=== PATIENT | male | born 1940 | race Caucasian/White ===

== ENCOUNTER 2017-04-13 15:31 | Inpatient (IN) ==
--- OUTSIDE RECORDS SUMMARY | 2017-04-13 16:06 | External Medical Summary | Referral Summary ---
:1940 Author Organization [facility] Address [address] [place] [address] [place] [phone] Care Team Providers Name Role Phone Juan Francisco Doran Primary Care Physician Encounter VC Date(s): 09/16/14 - 09/16/14 [facility] [address] [place] [phone] [place] Discharge Disposition: 01-Home or Self Care Attending Physician: Don Camejo MD Admitting Physician: Don Camejo MD Vital Signs Most recent to oldest [Reference Range]: 1 Blood Pressure [90-140/60-90 mmHg] 140/90 mmHg (09/16/14 2:31 PM) Problem List Condition Effective Dates Status Health Status Informant Polio(Confirmed) Active Allergic rhinitis(Confirmed) Active Benign essential hypertension Active (disorder)(Confirmed) Chronic kidney disease Active (CKD)(Confirmed) COPD (chronic obstructive pulmonary Active disease)(Confirmed) Hypothyroidism (disorder)(Confirmed) Active ED (erectile dysfunction)(Confirmed) Active Pure hypercholesterolemia Active (disorder)(Confirmed) Allergies, Adverse Reactions, Alerts Substance Reaction Severity Status codeine Active iodine Active Medications Advair Diskus 100 mcg-50 mcg inhalation powder See Instructions, INHALE ONE DOSE BY MOUTH TWICE DAILY, # 60 unknown unit, 5 Refill(s), eRx: [facility], INHALE ONE DOSE BY MOUTH TWICE DAILY Start Date: 03/21/15 Status: Orderedaspirin 81 mg oral tablet 1 tabs, Oral, Daily, # 90 tabs, 0 Refill(s) Start Date: 10/27/13 Status: OrderedC-Time 500 mg oral capsule caps, Oral, BID, 0 Refill(s) Start Date: 10/28/13 Status: Ordereddesoximetasone 0.25% topical cream See Instructions, APPLY TWICE DAILY, # 60 unknown unit, eRx: [facility] 186, APPLY TWICE DAILY Start Date: 05/19/14 Status: Orderedfluticasone 50 mcg/inh nasal spray See Instructions, USE ONE SPRAY(S) IN EACH NOSTRIL TWICE DAILY, # 16 unknown unit, 2 Refill(s), eRx:[facility] 186, USE ONE SPRAY(S) IN EACH NOSTRIL TWICE DAILY Start Date: 02/01/15 Status: Orderedgemfibrozil 600 mg oral tablet See Instructions, TAKE ONE TABLET BY MOUTH EVERY DAY, # 90 tabs, eRx: [place] [id number], TAKE ONE TABLET BY MOUTH EVERY DAY Start Date: 02/01/15 Status: Orderedlevothyroxine 137 mcg (0.137 mg) oral tablet See Instructions, TAKE ONE TABLET BY MOUTH EVERY DAY, # 90 tabs, eRx: [facility] 186, TAKE ONE TABLET BY MOUTH EVERY DAY Start Date: 02/01/15 Status: Orderedlisinopril-hydrochlorothiazide 20 mg-25 mg oral tablet 0.5 tabs, Oral, Daily, # 45 tabs, 1 Refill(s), Pharmacy: [place] [id number] Start Date: 02/17/15 Status: OrderedLORazepam 1 mg oral tablet 0.5-1 tabs, Oral, q8hr, as needed for anxiety, whit wilson [id number], # 90 tabs, 0 Refill(s) Start Date: 02/01/15 Status: OrderedMetoprolol Succinate ER 50 mg oral tablet, extended release See Instructions, TAKE ONE TABLET BY MOUTH EVERY DAY, # 90 tabs, eRx: [place] [id number], TAKE ONE TABLET BY MOUTH EVERY DAY Start Date: 02/01/15 Status: OrderedNasonex 50 mcg/inh nasal spray 1 sprays, Nasal, BID, 0 Refill(s) Start Date: 10/27/13 Status: Orderedpravastatin 40 mg oral tablet See Instructions, TAKE ONE TABLET BY MOUTH EVERY DAY, # 90 tabs, eRx: [facility] [id number], TAKE ONE TABLET BY MOUTH EVERY DAY Start Date: 02/01/15 Status: OrderedRutin oral tablet 1 tabs, Oral, BID, 50 MG, 0 Refill(s) Start Date: 10/28/13 Status: Ordered Results No data available for this section Immunizations Vaccine Date Refusal Reason tetanus/diphth/pertuss (Tdap) adult/adol 10/09/12 pneumococcal 13-valent conjugate vaccine 11/04/14 pneumococcal 13-valent conjugate vaccine 07/29/14 pneumococcal 23-polyvalent vaccine 03/31/12 zoster vaccine live 10/09/12 Procedures Procedure Date Related Diagnosis Body Site Colonoscopy 2006 Social History Social History Type Response Smoking Status Former smoker Assessment and Plan Extracted from: Title: Ambulatory Patient Education Author: Don Camejo MD Date: Family Medicine Glossitis Glossitis is an inflammation of the tongue. Changes in the appearance of the tongue may be a primary tongue disorder. This means the problem is only in the tongue. Glossitis may be a symptom of other disorders. CAUSES Excessive alcohol. Multiple allergies. Infections. Tobacco and nicotine use. Anemia. Mechanical injury. Spicy foods. Vitamin B deficiency. Damage from chemicals or hot food or drink. SYMPTOMS There may be swelling and color changes in the tongue. Sometimes the surface of the tongue may look smooth. This disorder may be painless. But the tongue is usually sore and tender. It can be fiery red if condition is caused by deficiency of B vitamins. It is sometimes pale if there is anemia. Anemia means there are not enough red blood cells. There may be problems with chewing, swallowing and speakin g. In some cases, glossitis may result in severe tongue swelling that blocks the airway. DIAGNOSIS The diagnosis of glossitis is made easily by physical exam and asking for a history. Sometimes blood tests may be done. TREATMENT The goal of treatment is to reduce inflammation. Hospitalization is usually not necessary unless tongue swelling is severe. Good oral hygiene is important. This means good tooth brushing at least twice a day, and flossing daily for treatment and prevention. Corticosteroids such as prednisone may be given to reduce the redness and soreness. Medications may be prescribed if the cause of glossitis is an infection. Other problems such as anemia and nutritional deficiencies are treated. This may be a dietary change or vitamin supplements. Avoid hot or spicy foods, alcohol, and tobacco. This lessens the discomfort. Avoid anything that is irritating to your mouth or tongue. Glossitis usually responds well to treatment if the cause of it is removed or treated. SEEK IMMEDIATE MEDICAL CARE IF: Symptoms of glossitis persist for longer than 10 days. Tongue swelling is severe and breathing, speaking, chewing, or swallowing difficulties are present. You have no relief from medications given. You develop difficulties breathing. Document Released: 02/15/2003 Document Revised: 05/19/2012 Document Reviewed: 04/01/2009 [employer] Patient Information 2014 [place]. No follow up information was provided. Extracted from: Title: Office Visit Note Author: Don Camejo MD Date: 09/16/14 Assessment/Plan Benign essential hypertension (disorder) This issue is stable and appropriate refills, lab, and f/u have been discussed. Cheilitis Trial of diflucan 200mg po daily for ten days. Chronic kidney disease (CKD) This issue is stable and appropriate refills, lab, and f/u have been discussed. COPD (chronic obstructive pulmonary disease) This issue is stable and appropriate refills, lab, and f/u have been discussed. RINSE mouth after every inhaler use. Glossitis Trial of prednisone 20mg po daily for three days only. F/U with PCP. Hypothyroidism (disorder) This issue is stable and appropriate refills, lab, and f/u have been discussed. Stomatitis See above. Presumably this is from yeastfrom not rinsing his mouth after inhaler use. Close f/u if not improving and be seen here or with Dr. RIVERA on his return. Consider Dermconsult if not improving. Orders: fluconazole, 200 mg 1 tabs, Oral, Daily, X 10 days, # 10 tabs, 0 Refill(s), Pharmacy: [facility], 1 tabs Oral Daily,x10 days predniSONE, 20 mg 1 tabs, Oral, Daily, X 3 days, # 3 tabs, 0 Refill(s), Pharmacy: [facility], 1 tabs Oral Daily,x3 days
--- OUTSIDE RECORDS SUMMARY | 2017-04-13 16:06 | External Medical Summary | Referral Summary ---
:1940 Author Organization [facility] [place] [phone] Care Team Providers Name Role Phone Juan Francisco Doran Primary Care Physician Encounter VC Date(s): 10/27/15 - 10/27/15 [facility] [place] [phone] [place] Discharge Diagnosis: Chronic obstructive pulmonary disease Discharge Diagnosis: Chronic kidney disease (CKD) Discharge Diagnosis: Hypothyroidism (disorder) Discharge Diagnosis: Benign essential hypertension Discharge Disposition: 01-Home or Self Care Attending Physician: Juan Francisco Doran MD Admitting Physician: Juan Francisco Doran MD Vital Signs Most recent to oldest [Reference Range]: 1 Temperature Tympanic [36.6-38.1 degC] 36.2 degC *LOW* (10/27/15 10:20 AM) Peripheral Pulse Rate [60-100 bpm] 72 bpm (10/27/15 10:20 AM) Respiratory Rate [14-20 br/min] 16 br/min (10/27/15 10:20 AM) Blood Pressure [90-140/60-90 mmHg] 138/88 mmHg (10/27/15 10:20 AM) Problem List Condition Effective Dates Status Health Status Informant Polio(Confirmed) Active Allergic rhinitis(Confirmed) Active Benign essential hypertension Active (disorder)(Confirmed) Chronic kidney disease Active (CKD)(Confirmed) COPD (chronic obstructive pulmonary Active disease)(Confirmed) Hypothyroidism (disorder)(Confirmed) Active ED (erectile dysfunction)(Confirmed) Active Pure hypercholesterolemia Active (disorder)(Confirmed) Allergies, Adverse Reactions, Alerts Substance Reaction Severity Status codeine Active iodine Active Medications Advair Diskus 250 mcg-50 mcg inhalation powder 1 puffs, Inhalation, BID, # 180 Each, 0 Refill(s), Pharmacy: [facility] Start Date: 07/04/15 Status: OrderedAllegra 24 Hour Allergy oral tablet 180 mg 1 tabs, Oral, Daily, # 30 tabs, 3 Refill(s), Pharmacy: [facility], 1 tabs Oral Daily Start Date: 05/06/15 Status: Orderedaspirin 81 mg oral tablet 1 tabs, Oral, Daily, # 90 tabs, 0 Refill(s) Start Date: 10/27/13 Status: OrderedC-Time 500 mg oral capsule caps, Oral, BID, 0 Refill(s) Start Date: 10/28/13 Status: Ordereddesoximetasone 0.25% topical cream See Instructions, APPLY TWICE DAILY, # 60 unknown unit, eRx: [facility], APPLY TWICE DAILY Start Date: 05/19/14 Status: Orderedfluticasone 50 mcg/inh nasal spray See Instructions, USE TWO SPRAY(S) IN EACH NOSTRIL TWICE DAILY, # 1 Each, 2 Refill(s), Pharmacy: [facility] Start Date: 05/06/15 Status: Orderedgemfibrozil 600 mg oral tablet See Instructions, TAKE ONE TABLET BY MOUTH ONCE DAILY, # 90 tabs, 1 Refill(s), eRx: [facility], TAKE ONE TABLET BY MOUTH ONCE DAILY Start Date: 08/22/15 Status: Orderedlevothyroxine 150 mcg (0.15 mg) oral tablet 150 mcg 1 tabs, Oral, Daily, # 90 tabs, 1 Refill(s), Pharmacy: [facility] 186, 1 tabs Oral Daily Start Date: 07/06/15 Status: Orderedlisinopril-hydrochlorothiazide 20 mg-25 mg oral tablet See Instructions, TAKE ONE-HALF TABLET BY MOUTH ONCE DAILY, # 45 tabs, 1 Refill( s), eRx: [facility] 186, TAKE ONE-HALF TABLET BY MOUTH ONCE DAILY Start Date: 08/22/15 Status: OrderedLORazepam 1 mg oral tablet 0.5-1 tabs, Oral, q8hr, as needed for anxiety, whit wilson [id number], # 90 tabs, 0 Refill(s) Start Date: 08/22/15 Status: OrderedMetoprolol Succinate ER 50 mg oral tablet, extended release See Instructions, TAKE ONE TABLET BY MOUTH ONCE DAILY, # 90 tabs, 1 Refill(s), eRx: [facility] 186, TAKE ONE TABLET BY MOUTH ONCE DAILY Start Date: 08/22/15 Status: OrderedNasonex 50 mcg/inh nasal spray 1 sprays, Nasal, BID, 0 Refill(s) Start Date: 10/27/13 Status: Orderedpravastatin 40 mg oral tablet See Instructions, TAKE ONE TABLET BY MOUTH ONCE DAILY, # 90 tabs, 1 Refill(s), eRx: [facility] 186, TAKE ONE TABLET BY MOUTH ONCE DAILY Start Date: 08/22/15 Status: OrderedRutin oral tablet 1 tabs, Oral, BID, 50 MG, 0 Refill(s) Start Date: 10/28/13 Status: OrderedViagra 100 mg oral tablet 100 mg 1 tabs, Oral, Daily, 1 hour before sexual activity, # 10 tabs, 3 Refill(s ), Pharmacy: [facility] 186, 1 tabs Oral Daily,Instr:1 hour before sexual activity Start Date: 10/27/15 Status: Ordered Results Hematology Most recent to oldest [Reference Range]: 1 WBC [4.8-10.8 10*3/uL] 9.6 10*3/uL (10/27/15 11:15 AM) RBC [4.60-6.20] 5.60 (10/27/15 11:15 AM) Hgb [14.0-18.0 gm/dL] 16.8 gm/dL (10/27/15 11:15 AM) Hct [42.0-52.0 %] 48.9 % (10/27/15 11:15 AM) MCV [82.0-99.0 fL] 87.3 fL (10/27/15 11:15 AM) MCH [27.0-32.0 pg] 30.0 pg (10/27/15 11:15 AM) MCHC [32.0-36.0 gm/dL] 34.4 gm/dL (10/27/15 11:15 AM) RDW [11.5-14.5 %] 13.4 % (10/27/15 11:15 AM) Platelet [150-400 10*3/uL] 207 10*3/uL (10/27/15 11:15 AM) MPV [8.8-14.8 fL] 9.9 fL (10/27/15 11:15 AM) Immature Granulocytes [0.0-1.0 %] 0.2 % (10/27/1515 AM) Neutrophils [51-75 %] 60 % (10/27/15:15 AM) Lymphocytes [20-46 %] 23 % (10/27/15:15 AM) Monocytes [4-11 %] 13 % *HI* (10/27/1515 AM) Eosinophils [0-4 %] 4 % (10/27/15:15 AM) Basophils [0-2 %] 0 % (10/27/15 11:15 AM) Neutro Absolute [1.90-7.00 10*3] 5.79 10*3 (10/27/15:15 AM) Lymph Absolute [0.80-3.30 10*3] 2.18 10*3 (10/27/15:15 AM) [place] Absolute [0.30-1.00 10*3] 1.20 10*3 *HI* (10/27/15:15 AM) Eos Absolute [0.00-0.50 10*3] 0.39 10*3 (10/27/15 11:15 AM) Baso Absolute [0.00-0.20 10*3] 0.03 10*3 (10/27/15 11:15 AM) Chemistry Most recent to oldest [Reference Range]: 1 Sodium Lvl [135-144 mEq/L] 142 mEq/L (10/27/15:15 AM) Potassium Lvl [3.5-5.2 mEq/L] 3.9 mEq/L (10/27/15:15 AM) Chloride [99-111 mEq/L] 101 mEq/L (10/27/15 11:15 AM) CO2 [23-31 mEq/L] 30 mEq/L (10/27/15:15 AM) AGAP [3-20] 11 (10/27/15 11:15 AM) BUN [8-26 mg/dL] 11 mg/dL (10/27/15 11:15 AM) Glucose Lvl [70-99 mg/dL] 77 mg/dL (10/27/15 11:15 AM) Creatinine Lvl [0.72-1.25 mg/dL] 1.13 mg/dL (10/27/15 11:15 AM) eGFR [>60 mL/min] >60 mL/min 1 (10/27/15 11:15 AM) Calcium Lvl [8.9-10.5 mg/dL] 9.9 mg/dL (10/27/15 11:15 AM) 1Result Comment: Multiply eGFR results by 1.21 for race. Immunizations Vaccine Date Refusal Reason tetanus/diphth/pertuss (Tdap) adult/adol 10/09/12 pneumococcal 13-valent conjugate vaccine 11/04/14 pneumococcal 13-valent conjugate vaccine 07/29/14 pneumococcal 23-polyvalent vaccine 03/31/12 zoster vaccine live 10/09/12 Procedures Procedure Date Related Diagnosis Body Site Colonoscopy 2007 Eye surgery Shoulder repair1 1both in the past Social History Social History Type Response Smoking Status Former smoker Assessment and Plan Extracted from: Title: Office Visit Note Author: Juan Francisco Doran MD Date: 10/27/15 Assessment/Plan 1.Benign essential hypertension, Essential (primary) hypertension Blood pressure appears to be adequately controlled no changes in current treatment recommended. Ordered: Office Visit Level 4 Est 53639 2.Chronic kidney disease (CKD), Chronic kidney disease, stage 3 (moderate) Chronic but stable. Laboratory studies ordered no changes in current treatment. Ordered: Office Visit Level 4 Est 96367 3.Chronic obstructive pulmonary disease, Chronic obstructive pulmonary disease, unspecified Chronic stable no change in current treatment recommended. Ordered: Office Visit Level 4 Est 82296 4.Hypothyroidism (disorder), Hypothyroidism, unspecified Chronic stable on current dosage no changes recommended. Ordered: Office Visit Level 4 Est 85411 Carpal tunnel syndrome He appears to be stable forsurgical intervention. EKG is normal and laboratory studies are pending. Ordered: Basic Metabolic Panel CBC w/ Differential Orders: sildenafil, 100 mg 1 tabs, Oral, Daily, 1 hour before sexual activity , # 10 tabs, 3 Refill(s), Pharmacy: [facility], 1 tabs Oral Daily, Instr:1 hour before sexual activity
--- OUTSIDE RECORDS SUMMARY | 2017-04-13 16:06 | External Medical Summary | Referral Summary ---
:1940 Author Organization [facility] [place] [phone] Care Team Providers Name Role Phone Juan Francsico Doran Primary Care Physician Encounter VC Date(s): 07/29/14 - 07/29/14 [facility] [place] [phone] [place] Discharge Diagnosis: Benign essential hypertension Discharge Diagnosis: Hypothyroidism Discharge Diagnosis: Allergic rhinitis Discharge Diagnosis: Pure hypercholesterolemia Discharge Diagnosis: COPD (chronic obstructive pulmonary disease) Discharge Disposition: 01-Home or Self Care Attending Physician: Juan Francisco Doran MD Admitting Physician: Juan Francisco Doran MD Vital Signs Most recent to oldest [Reference Range]: 1 Temperature Tympanic [36.6-38.1 degC] 36.4 degC *LOW* (07/29/14 8:02 AM) Peripheral Pulse Rate [60-100 bpm] 76 bpm (07/29/14 8:02 AM) Respiratory Rate [14-20 br/min] 16 br/min (07/29/14 8:02 AM) Blood Pressure [90-140/60-90 mmHg] 126/72 mmHg (07/29/14 8:02 AM) Problem List Condition Effective Dates Status [...] MOUTH TWICE DAILY, # 60 unknown unit, 4 Refill(s), eRx: [facility], INHALE ONE DOSE BY MOUTH TWICE DAILY Start Date: 09/06/14 Status: Orderedaspirin 81 mg oral tablet 1 tabs, Oral, Daily, # 90 tabs, 0 Refill(s) Start Date: 10/27/13 Status: OrderedC-Time 500 mg oral capsule caps, Oral, BID, 0 Refill(s) Start Date: 10/28/13 Status: Ordereddesoximetasone 0.25% topical cream See Instructions, APPLY TWICE DAILY, # 60 unknown unit, [facility]Rx: [facility], APPLY TWICE DAILY Start Date: 05/19/14 Status: Orderedfluticasone 50 mcg/inh nasal spray See Instructions, USE ONE SPRAY(S) IN EACH NOSTRIL TWICE DAILY, # 16 unknown unit, 2 Refill(s), [facility], USE ONE SPRAY(S) IN EACH NOSTRIL TWICE DAILY Start Date: 02/01/15 Status: Orderedgemfibrozil 600 mg oral tablet See Instructions, TAKE ONE TABLET BY MOUTH EVERY DAY, # 90 tabs, [facility]Rx: [facility], TAKE ONE TABLET BY MOUTH EVERY DAY Start Date: 02/01/15 Status: Orderedlevothyroxine 137 mcg (0.137 mg) oral tablet See Instructions, TAKE ONE TABLET BY MOUTH EVERY DAY, # 90 tabs, eRx: [facility] 186, TAKE ONE TABLET BY MOUTH EVERY DAY Start Date: 02/01/15 Status: OrderedLORazepam 1 mg oral tablet 0.5-1 tabs, Oral, q8hr, as needed for anxiety, whit wilson [id number], # 90 tabs, 0 Refill(s) Start Date: 02/01/15 Status: OrderedMetoprolol Succinate ER 50 mg oral tablet, extended release See Instructions, TAKE ONE TABLET BY MOUTH EVERY DAY, # 90 tabs, eRx: [facility] 186, TAKE ONE TABLET BY MOUTH EVERY DAY Start Date: 02/01/15 Status: OrderedNasonex 50 mcg/inh nasal spray 1 sprays, Nasal, BID, 0 Refill(s) Start Date: 10/27/13 Status: Orderedpravastatin 40 mg oral tablet See Instructions, TAKE ONE TABLET BY MOUTH EVERY DAY, # 90 tabs, [facility]Rx: [facility], TAKE ONE TABLET BY MOUTH EVERY [...] Extracted from: Title: Ambulatory Patient Education Author: Juan Francisco Doran MD Date: 07/29 Family Medicine Chronic Obstructive Pulmonary Disease Chronic obstructive pulmonary disease (COPD) is a common lung problem. In COPD , the flow of air from the lungs is limited. The way your lungs work will probably never return to normal, but there are thi ngs you can do to improve you lungs and make yourself feel better. HOME CARE Take all medicines as told by your doctor. Only take [id number] or prescription medicines as told by your doctor. Avoid medicines or cough syrups that dry up your airway (such as antihistamines) and do not allow you to get rid of thick spit. You do not need to avoid them if told differently by your doctor. If you smoke, stop. Smoking makes the problem worse. Avoid being around things that make your breathing worse (like smoke, chemicals, and fumes). Use oxygen therapy and therapy to help improve your lungs (pulmonary rehabilitation ) if told by your doctor. If you need home oxygen therapy, ask your doctor if you should buy a tool to measure your oxygen level (oximeter ). Avoid people who have a sickness you can catch (contagious ). Avoid going outside when it is very hot, cold, or humid. Eat healthy foods. Eat smaller meals more often. Rest before meals. Stay active, but remember to also rest. Make sure to get all the shots (vaccines ) your doctor recommends. Ask your doctor if you need a pneumonia shot. Learn and use tips on how to relax. Learn and use tips on how to control your breathing as told by your doctor. Try: Breathing in (inhaling ) through your nose for 1 second. Then, pucker your lips and breath out (exhale ) through your lips for 2 seconds. Putting one hand on your belly (abdomen ). Breathe in slowly through your nose for 1 second. Your hand on your belly should move out. Pucker your lips and breathe out slowly through your lips. You r hand on your belly should move in as you breathe out. Learn and use controlled coughing to clear thick spit from your lungs. 1. Lean your head a little forward. 2. Breathe in deeply. 3. Try to hold your breath for 3 seconds. 4. Keep your mouth slightly open while coughing 2 times. 5. Spit any thick spit out into a tissue. 6. Rest and do the steps again 1 or 2 times as needed. GET HELP IF: You cough up more thick spit than usual. There is a change in the color or thickness of the spit. It is harder to breathe than usual. Your breathing is faster than usual. GET HELP RIGHT AWAY IF: You have shortness of breath while resting. You have shortness of breath that stops you from: Being able to talk. Doing normal activities. You chest hurts for longer than 5 minutes. Your skin color is more blue than usual. Your pulse oximeter shows that you have low oxygen for longer than 5 minutes. MAKE SURE YOU: Understand these instructions. Will watch your condition. Will get help right away if you are not doing well or get worse. Document Released: 08/13/2008 Document Revised: 12/16/2013 Document Reviewed: 10/22/2013 [facility] Patient Information 2014 [facility]. No follow up information was provided. Extracted from: Title: Admission H & P Author: Juan Francisco Doran MD Date: 07/29/14 Assessment/Plan Allergic rhinitis Overall stable. Continue antihistamines as needed. He also has Flonase to use as needed. Benign essential hypertension Continue current treatment plan. Report card reviewed and provided. Follow-up in 3 months with fasting lab. COPD (chronic obstructive pulmonary disease) Overall stable no change in current treatment plan recommended. Prevnar given today. Ordered: Hypothyroidism TSH is normal in April. No change in current dosage recommended. Pure hypercholesterolemia Overall stable no change in current treatment plan. Fasting lab prior to next appointment.
--- OUTSIDE RECORDS SUMMARY | 2017-04-13 16:06 | External Medical Summary | Referral Summary ---
:1940 Author Organization [facility] [place] [address] Care Team Providers Name Role Phone Juan Francisco Doran Primary Care Physician Encounter VC Date(s): 02/07/16 - 02/07/16 [facility] [place] [phone] [place] Discharge Diagnosis: Viral URI Discharge Diagnosis: Chronic kidney disease (CKD) Discharge Diagnosis: Pure hypercholesterolemia Discharge Diagnosis: Benign essential hypertension Discharge Diagnosis: Hypothyroidism (disorder) Discharge Diagnosis: Chronic obstructive pulmonary disease Discharge Diagnosis: Acute nasopharyngitis [common cold] Discharge Disposition: 01-Home or Self Care Attending Physician: Juan Francisco Doran MD Admitting Physician: Juan Francisco Doran MD Vital Signs Most recent to oldest [Reference Range]: 1 Temperature Tympanic [36.6-38.1 degC] 36.3 degC *LOW* (02/07/16 8:05 AM) Peripheral Pulse Rate [60-100 bpm] 80 bpm (02/07/16 8:05 AM) Respiratory Rate [14-20 br/min] 16 br/min (02/07/16 8:05 AM) Blood Pressure [90-140/60-90 mmHg] 130/70 mmHg (02/07/16 8:05 AM) Problem List Condition Effective Dates Status Health Status Informant Polio(Confirmed) Active Allergic rhinitis(Confirmed) Active Benign essential hypertension Active (disorder)(Confirmed) Chronic kidney disease Active (CKD)(Confirmed) COPD (chronic obstructive pulmonary Active disease)(Confirmed) Hypothyroidism (disorder)(Confirmed) Active ED (erectile dysfunction)(Confirmed) Active Pure hypercholesterolemia Active (disorder)(Confirmed) Allergies, Adverse Reactions, Alerts Substance Reaction Severity Status codeine Active iodine Active Medications Advair Diskus 250 mcg-50 mcg inhalation powder See Instructions, INHALE ONE DOSE BY MOUTH TWICE DAILY, # 180 unknown unit, 1 Refill(s), eRx: [facility], INHALE ONE DOSE BY MOUTH TWICE DAILY Start Date: 11/21/15 Status: Orderedalbuterol CFC free 90 mcg/inh inhalation aerosol 2 puffs, Inhalation, QID, as needed for wheezing, # 18 g, 2 Refill(s), Pharmacy : [facility] 186 Start Date: 02/07/16 Status: OrderedAllegra 24 Hour Allergy oral tablet 180 mg 1 tabs, Oral, Daily, # 30 tabs, 3 Refill(s), Pharmacy: [facility] 186, 1 tabs Oral Daily Start Date: 05/06/15 Status: Orderedaspirin 81 mg oral tablet 1 tabs, Oral, Daily, # 90 tabs, 0 Refill(s) Start Date: 10/27/13 Status: OrderedC-Time 500 mg oral capsule caps, Oral, BID, 0 Refill(s) Start Date: 10/28/13 Status: Ordereddesoximetasone 0.25% topical cream See Instructions, APPLY TWICE DAILY, # 60 unknown unit, eRx: [place] [id number], APPLY TWICE DAILY Start Date: 05/19/14 Status: Orderedfluticasone 50 mcg/inh nasal spray See Instructions, USE TWO SPRAY(S) IN EACH NOSTRIL TWICE DAILY, # 1 Each, 2 Refill(s), Pharmacy: [place] [id number] Start Date: 05/06/15 Status: Orderedgemfibrozil 600 mg oral tablet See Instructions, TAKE ONE TABLET BY MOUTH ONCE DAILY, # 90 tabs, 1 Refill(s), eRx: [place] [id number], TAKE ONE TABLET BY MOUTH ONCE DAILY Start Date: 08/22/15 Status: Orderedlevothyroxine 150 mcg (0.15 mg) oral tablet 150 mcg 1 tabs, Oral, Daily, # 90 tabs, 1 Refill(s), Pharmacy: [facility] 186, 1 tabs Oral Daily Start Date: 07/06/15 Status: Orderedlisinopril-hydrochlorothiazide 20 mg-25 mg oral tablet See Instructions, TAKE ONE-HALF TABLET BY MOUTH ONCE DAILY, # 45 tabs, 1 Refill( s), eRx: [facility] 186, TAKE ONE-HALF TABLET BY MOUTH ONCE DAILY Start Date: 08/22/15 Status: OrderedLORazepam 1 mg oral tablet 0.5-1 tabs, Oral, q8hr, as needed for anxiety, whit wilson [id number], # 90 tabs, 0 Refill(s) Start Date: 01/06/16 Status: OrderedMetoprolol Succinate ER 50 mg oral tablet, extended release See Instructions, TAKE ONE TABLET BY MOUTH ONCE DAILY, # 90 tabs, 1 Refill(s), eRx: [facility] 186, TAKE ONE TABLET BY MOUTH ONCE DAILY Start Date: 08/22/15 Status: OrderedNasonex 50 mcg/inh nasal spray 1 sprays, Nasal, BID, 0 Refill(s) Start Date: 10/27/13 Status: Orderedpravastatin 40 mg oral tablet See Instructions, TAKE ONE TABLET BY MOUTH ONCE DAILY, # 90 tabs, 1 Refill(s), eRx: [facility], TAKE ONE TABLET BY MOUTH ONCE DAILY Start Date: 08/22/15 Status: OrderedRutin oral tablet 1 tabs, Oral, BID, 50 MG, 0 Refill(s) Start Date: 10/28/13 Status: OrderedViagra 100 mg oral tablet 100 mg 1 tabs, Oral, Daily, 1 hour before sexual activity, # 10 tabs, 3 Refill(s ), Pharmacy: [facility], 1 tabs Oral Daily,Instr:1 hour before sexual activity Start Date: 10/27/15 Status: Ordered Results No data available for this section Immunizations Vaccine Date Refusal Reason tetanus/diphth/pertuss (Tdap) adult/adol 10/09/12 pneumococcal 13-valent conjugate vaccine 02/07/16 pneumococcal 13-valent conjugate vaccine 11/04/14 pneumococcal 13-valent conjugate vaccine 07/29/14 pneumococcal 23-polyvalent vaccine 03/31/12 zoster vaccine live 10/09/12 Procedures Procedure Date Related Diagnosis Body Site Colonoscopy 2007 Eye surgery Shoulder repair1 1both in the past Social History Social History Type Response Smoking Status Former smoker Assessment and Plan Extracted from: Title: Office Visit Note Author: Juan Francisco Doran MD Date: 02/07/16 Assessment/Plan 1.Viral URI, It appears she has an upper respiratory viral infection. This seems to be improvingspecific treatmentat this time. If he has ongoing symptoms or further problems he'll let us now. Acute nasopharyngitis [common cold] Ordered: Office Visit Level 4 Est 64162 2.Chronic obstructive pulmonary disease I've written a prescription for an albuterolHFA inhaler to be used as a rescue inhaler on a when necessary basis. Continue Advair. If wheezing her congestion worsens he'll let us know. Ordered: Office Visit Level 4 Est 74848 3.Benign essential hypertension Blood pressure appears to be reasonably well-controlled no change in current treatment is recommended. Recheck in 3 months. Fasting lab at that time. Report card reviewed and provided today. Ordered: Office Visit Level 4 Est 46737 4.Chronic kidney disease (CKD) Chronic relatively stable no change in current treatment. Ordered: Office Visit Level 4 Est 30010 5.Hypothyroidism (disorder) Previous laboratory reviewed TSH is normal no change in current treatment. Ordered: Office Visit Level 4 Est 38070 6.Pure hypercholesterolemia Chronic stable recheck in 3 months with fasting lab. Continue current treatment plan. Ordered: Office Visit Level 4 Est 28435 Flu shot offered and refused today. We did recommend and give Prevnar today.
--- OUTSIDE RECORDS SUMMARY | 2017-04-13 16:06 | External Medical Summary | Referral Summary ---
:1940 Author Organization [facility] [place] [address] Care Team Providers Name Role Phone Juan Francisco Doran Primary Care Physician Encounter VC Date(s): 11/04/14 - 11/04/14 [facility] [place] [phone] [place] Discharge Diagnosis: Hypothyroidism Discharge Diagnosis: Benign essential hypertension Discharge Diagnosis: COPD (chronic obstructive pulmonary disease) Discharge Diagnosis: Pure hypercholesterolemia Discharge Diagnosis: Chronic kidney disease (CKD) Discharge Disposition: 01-Home or Self Care Attending Physician: Juan Francisco Doran MD Admitting Physician: Juan Francisco Doran MD Vital Signs Most recent to oldest [Reference Range]: 1 Temperature Tympanic [36.6-38.1 degC] 36.0 degC *LOW* (11/04/14 7:57 AM) Peripheral Pulse Rate [60-100 bpm] 72 bpm (11/04/14 7:57 AM) Respiratory Rate [14-20 br/min] 22 br/min *HI* (11/04/14 7:57 AM) Blood Pressure [90-140/60-90 mmHg] 140/90 mmHg (11/04/14 7:57 AM) Problem List Condition Effective Dates Status [...] # 60 unknown unit, 5 Refill(s), eRx: [facility] 186, INHALE ONE DOSE BY MOUTH TWICE DAILY Start Date: 03/21/15 Status: OrderedAllegra 24 Hour Allergy oral tablet 180 mg 1 tabs, Oral, Daily, # 30 tabs, 3 Refill(s), Pharmacy: [facility] 186, 1 tabs Oral Daily Start Date: 05/06/15 Status: Orderedaspirin 81 mg oral tablet 1 tabs, Oral, Daily, # 90 tabs, 0 Refill(s) Start Date: 10/27/13 Status: OrderedC-Time 500 mg oral capsule caps, Oral, BID, 0 Refill(s) Start Date: 10/28/13 Status: Ordereddesoximetasone 0.25% topical cream See Instructions, APPLY TWICE DAILY, # 60 unknown unit, eRx: [facility] 186, APPLY TWICE DAILY Start Date: 05/19/14 Status: Orderedfluticasone 50 mcg/inh nasal spray See Instructions, USE TWO SPRAY(S) IN EACH NOSTRIL TWICE DAILY, # 1 Each, 2 Refill(s), Pharmacy: [place] [id number] Start Date: 05/06/15 Status: Orderedgemfibrozil 600 mg oral tablet See Instructions, TAKE ONE TABLET BY MOUTH EVERY DAY, # 90 tabs, eRx: [place] [id number], TAKE ONE TABLET BY MOUTH EVERY DAY Start Date: 02/01/15 Status: Orderedlevothyroxine 150 mcg (0.15 mg) oral tablet 150 mcg 1 tabs, Oral, Daily, recheck lab in 6-8 weeks, # 60 tabs, 0 Refill(s), Pharmacy: [facility] 186, 1 tabs Oral Daily,Instr:recheck lab in 6-8 weeks Start Date: 05/10/15 Status: Orderedlisinopril-hydrochlorothiazide 20 mg-25 mg oral tablet 0.5 tabs, Oral, Daily, # 45 tabs, 1 Refill(s), Pharmacy: [place] [id number] Start Date: 02/17/15 Status: OrderedLORazepam 1 mg oral tablet 0.5-1 tabs, Oral, q8hr, as needed for anxiety, whit wilson [id number], # 90 tabs, 0 Refill(s) Start Date: 02/01/15 Status: OrderedMetoprolol Succinate ER 50 mg oral tablet, extended release See Instructions, TAKE ONE TABLET BY MOUTH EVERY DAY, # 90 tabs, eRx: [facility] 186, TAKE ONE TABLET BY MOUTH EVERY DAY Start Date: 02/01/15 Status: OrderedNasonex 50 mcg/inh nasal spray 1 sprays, Nasal, BID, 0 Refill(s) Start Date: 10/27/13 Status: Orderedpravastatin 40 mg oral tablet See Instructions, TAKE ONE TABLET BY MOUTH EVERY DAY, # 90 tabs, eRx: [facility] 186, TAKE ONE TABLET BY MOUTH EVERY DAY Start Date: 02/01/15 Status: OrderedRutin oral tablet 1 tabs, Oral, BID, 50 MG, 0 Refill(s) Start Date: 10/28/13 Status: Ordered Results Chemistry Most recent to oldest [Reference Range]: 1 Sodium Lvl [135-144 mEq/L] 142 mEq/L (11/04/14 8:38 AM) Potassium Lvl [3.5-5.2 mEq/L] 4.5 mEq/L (11/04/14 8:38 AM) Chloride [99-111 mEq/L] 103 mEq/L (11/04/14 8:38 AM) CO2 [23-31 mEq/L] 31 mEq/L (11/04/14 8:38 AM) AGAP [3-20] 8 (11/04/14 8:38 AM) BUN [8-26 mg/dL] 13 mg/dL (11/04/14 8:38 AM) Glucose Lvl [70-99 mg/dL] 126 mg/dL *HI* (11/04/14 8:38 AM) Creatinine Lvl [0.72-1.25 mg/dL] 1.32 mg/dL *HI* (11/04/14 8:38 AM) eGFR [>60 mL/min] 53 mL/min 1 *ABN* (11/04/14 8:38 AM) Calcium Lvl [8.9-10.5 mg/dL] 9.9 mg/dL (11/04/14 8:38 AM) Albumin Lvl [3.4-4.8 gm/dL] 4.2 gm/dL (11/04/14 8:38 AM) Total Protein [6.2-8.1 gm/dL] 7.4 gm/dL (8/27/15 8:38 AM) Globulin [1.8-4.0 gm/dL] 3.2 gm/dL (11/04/14 8:38 AM) ALT [0-55 U/L] 41 U/L (11/04/14 8:38 AM) AST [5-34 U/L] 39 U/L *HI* (11/04/14 8:38 AM) Alk Phos [40-150 U/L] 71 U/L (11/04/14 8:38 AM) Bili Total [0.2-1.2 mg/dL] 0.4 mg/dL (11/04/14 8:38 AM) Chol [0-199 mg/dL] 156 mg/dL (11/04/14 8:38 AM) Trig [0-149 mg/dL] 176 mg/dL *HI* (11/04/14 8:38 AM) HDL [40-84 mg/dL] 26 mg/dL *LOW* (11/04/14 8:38 AM) LDL [0-130 mg/dL] 95 mg/dL (11/04/14 8:38 AM) VLDL Cholesterol [0-28 mg/dL] 35 mg/dL *HI* (11/04/14 8:38 AM) Cardiac Risk [0.0-5.7] 6.0 *HI* (11/04/14 8:38 AM) 1Result Comment: Multiply eGFR results by 1.21 for race. Immunizations Vaccine Date Refusal Reason tetanus/diphth/pertuss (Tdap) adult/adol 10/09/12 pneumococcal 13-valent conjugate vaccine 11/04/14 pneumococcal 13-valent conjugate vaccine 07/29/14 pneumococcal 23-polyvalent vaccine 03/31/12 zoster vaccine live 10/09/12 Procedures Procedure Date Related Diagnosis Body Site Colonoscopy 2007 Social History Social History Type Response Smoking Status Former smoker Assessment and Plan Extracted from: Title: Ambulatory Patient Education Author: Juan Francisco Doran MD Date: 11/04 Family Medicine Hypertension Hypertension is another name for high blood pressure. High blood pressure forces your heart to work harder to pump blood. A blood pressure reading has two numbers, which includes a higher number over a lower number (example: 110/72 ). HOME CARE Have your blood pressure rechecked by your doctor. Only take medicine as told by your doctor. Follow the directions carefully. The medicine does not work as well if you skip doses. Skipping doses also puts you at risk for problems. Do not smoke. Monitor your blood pressure at home as told by your doctor. GET HELP IF: You think you are having a reaction to the medicine you are taking. You have repeat headaches or feel dizzy. You have puffiness (swelling) in your ankles. You have trouble with your vision. GET HELP RIGHT AWAY IF: You get a very bad headache and are confused. You feel weak, numb, or faint. You get chest or belly (abdominal) pain. You throw up (vomit). You cannot breathe very well. MAKE SURE YOU: Understand these instructions. Will watch your condition. Will get help right away if you are not doing well or get worse. Document Released: 08/13/2008 Document Revised: 03/02/2014 Document Reviewed: 12/18/2013 [email or web address] [place] Patient Information 2015 [employer]. This information is not intended to replace advice given to you by your health care provider. Make sure you discuss any questions you have with your health care provider. No follow up information was provided. Extracted from: Title: Office Visit Note Author: Juan Francisco Doran MD Date: 11/04/14 Assessment/Plan Benign essential hypertension The pressures mildly elevated today it's been normal at home. No change in current treatment is recommended. Report card reviewed and provided. Follow-up in 3 months. Ordered: Office Visit Level 4 Est 34561 Chronic kidney disease (CKD) Emphasized importance of good blood pressure control. CMP is ordered today. Ordered: Comprehensive Metabolic Panel Office Visit Level 4 Est 20738 COPD (chronic obstructive pulmonary disease) Chronic stable continue Advair. Prevnar given today. Recheck in 3 months. Ordered: pneumococcal 13-valent conjugate vaccine, 0.5 mL, IntraMuscular, Once, First Dose: 11/04/14 9:00:00 CDT, Stop Date: 11/04/14 9:00:00 CDT, Form: Injection Office Visit Level 4 Est 11750 Hypothyroidism Chronic stable most recent TSH reviewed and normal. Ordered: Office Visit Level 4 Est 07784 Pure hypercholesterolemia Laboratory studies ordered for today for further evaluation. Ordered: Lipid Panel Office Visit Level 4 Est 66906
--- OUTSIDE RECORDS SUMMARY | 2017-04-13 16:06 | External Medical Summary | Referral Summary ---
:1940 Author Organization [facility] [place] [address] Care Team Providers Name Role Phone Juan Francisco Doran Primary Care Physician Encounter VC Date(s): 02/01/15 - 02/01/15 [facility] [place] [phone] [place] Discharge Diagnosis: Benign essential hypertension Discharge Diagnosis: Chronic kidney disease (CKD) Discharge Diagnosis: COPD (chronic obstructive pulmonary disease) Discharge Diagnosis: Hypothyroidism (disorder) Discharge Diagnosis: Pure hypercholesterolemia Discharge Disposition: 01-Home or Self Care Attending Physician: Juan Francisco Doran MD Admitting Physician: Juan Francisco Doran MD Vital Signs Most recent to oldest [Reference Range]: 1 Temperature Tympanic [36.6-38.1 degC] 36.6 degC (02/01/15 8:02 AM) Peripheral Pulse Rate [60-100 bpm] 84 bpm (02/01/15 8:02 AM) Respiratory Rate [14-20 br/min] 18 br/min (02/01/15 8:02 AM) Blood Pressure [90-140/60-90 mmHg] 134/70 mmHg (02/01/15 8:02 AM) Problem List Condition Effective Dates [...] # 60 unknown unit, 4 Refill(s), eRx: [facility] 186, INHALE ONE DOSE BY MOUTH TWICE DAILY Start Date: 09/06/14 Status: Orderedaspirin 81 mg oral tablet 1 tabs, Oral, Daily, # 90 tabs, 0 Refill(s) Start Date: 10/27/13 Status: OrderedC-Time 500 mg oral capsule caps, Oral, BID, 0 Refill(s) Start Date: 10/28/13 Status: Ordereddesoximetasone 0.25% topical cream See Instructions, APPLY TWICE DAILY, # 60 unknown unit, eRx: [facility] 186, APPLY TWICE DAILY Start Date: 05/19/14 Status: Orderedfluticasone 50 mcg/inh nasal spray See Instructions, USE ONE SPRAY(S) IN EACH NOSTRIL TWICE DAILY, # 16 unknown unit, 2 Refill(s), eRx:[facility] 186, USE ONE SPRAY(S) IN EACH NOSTRIL TWICE DAILY Start Date: 02/01/15 Status: Orderedgemfibrozil 600 mg oral tablet See Instructions, TAKE ONE TABLET BY MOUTH EVERY DAY, # 90 tabs, eRx: [place] [id number], TAKE ONE TABLET BY MOUTH EVERY DAY Start Date: 02/01/15 Status: Orderedlevothyroxine 137 mcg (0.137 mg) oral tablet See Instructions, TAKE ONE TABLET BY MOUTH EVERY DAY, # 90 tabs, eRx: [place] [id number], TAKE ONE TABLET BY MOUTH EVERY DAY Start Date: 02/01/15 Status: OrderedLORazepam 1 mg oral tablet 0.5-1 tabs, Oral, q8hr, as needed for anxiety, whit wilson [id number], # 90 tabs, 0 Refill(s) Start Date: 02/01/15 Status: OrderedMetoprolol Succinate ER 50 mg oral tablet, extended release See Instructions, TAKE ONE TABLET BY MOUTH EVERY DAY, # 90 tabs, eRx: [facility] 186, TAKE ONE TABLET BY MOUTH EVERY DAY Start Date: 02/01/15 Status: OrderedNasonex 50 mcg/inh nasal spray 1 sprays, Nasal, BID, 0 Refill(s) Start Date: 10/27/13 Status: Orderedpravastatin 40 mg oral tablet See Instructions, TAKE ONE TABLET BY MOUTH EVERY DAY, # 90 tabs, eRx: [facility] 186, TAKE ONE TABLET BY MOUTH [...] Note Author: Juan Francisco Doran MD Date: 02/01/15 Assessment/Plan Benign essential hypertension Blood pressure is adequately controlled. Medications and treatments reviewed no changes recommended. Report card reviewed and provided. Follow-up in 3 months. Ordered: Office Visit Level 4 Est 45237 Chronic kidney disease (CKD) Chronic stable. The pressures controlled. Laboratory studies in 3 months. Ordered: Office Visit Level 4 Est 16316 COPD (chronic obstructive pulmonary disease) Overall stable no change in current treatment recommended. Recheck in 3 months. Ordered: Office Visit Level 4 Est 53509 Hypothyroidism (disorder) Continue current dosage of levothyroxine. TSH will be due in 3 months. Ordered: Office Visit Level 4 Est 63978 Pure hypercholesterolemia
--- OUTSIDE RECORDS SUMMARY | 2017-04-13 16:06 | External Medical Summary | Referral Summary ---
:1940 Author Organization [facility] [place] [address] Care Team Providers Name Role Phone Juan Francisco Doran Primary Care Physician Encounter VC Date(s): 07/04/15 - 07/04/15 [facility] [place] [phone] [place] Discharge Diagnosis: Chronic obstructive pulmonary disease Discharge Diagnosis: Oral candidiasis Discharge Diagnosis: Allergic rhinitis due to pollen Discharge Diagnosis: Acute sinusitis Discharge Diagnosis: Rhinitis medicamentosa Discharge Disposition: 01-Home or Self Care Attending Physician: Katarzyna Reeder APRN Admitting Physician: Katarzyna Reeder APRN Vital Signs Most recent to oldest [Reference Range]: 1 Temperature Tympanic [36.6-38.1 degC] 36.2 degC *LOW* (07/04/15 1:37 PM) Peripheral Pulse Rate [60-100 bpm] 72 bpm (07/04/15 1:37 PM) Respiratory Rate [14-20 br/min] 16 br/min (07/04/15 1:37 PM) Blood Pressure [90-140/60-90 mmHg] 138/68 mmHg (07/04/15 1:37 PM) Problem List Condition Effective Dates Status [...] BID, # 180 Each, 0 Refill(s), Pharmacy: [facility] 186 Start Date: 07/04/15 Status: OrderedAllegra 24 Hour Allergy oral tablet 180 mg 1 tabs, Oral, Daily, # 30 tabs, 3 Refill(s), Pharmacy: [facility] 186, 1 tabs Oral Daily Start Date: 05/06/15 Status: Orderedaspirin 81 mg oral tablet 1 tabs, Oral, Daily, # 90 tabs, 0 Refill(s) Start Date: 10/27/13 Status: OrderedC-Time 500 mg oral capsule caps, Oral, BID, 0 Refill(s) Start Date: 10/28/13 Status: Ordereddesoximetasone 0.25% topical cream See Instructions, APPLY TWICE DAILY, # 60 unknown unit, eRx: [facility] 186, APPLY TWICE DAILY Start Date: 05/19/14 Status: OrderedDiflucan 100 mg oral tablet 100 mg 1 tabs, Oral, Daily, X 14 days, # 14 tabs, 0 Refill(s), Pharmacy: [facility], 1 tabs Oral Daily,x14 days Start Date: 07/04/15 Stop Date: 07/18/15 Status: Orderedfluticasone 50 mcg/inh nasal spray See Instructions, USE TWO SPRAY(S) IN EACH NOSTRIL TWICE DAILY, # 1 Each, 2 Refill(s), Pharmacy: [place] [id number] Start Date: 05/06/15 Status: Orderedgemfibrozil 600 mg oral tablet See Instructions, TAKE ONE TABLET BY MOUTH ONCE DAILY, # 90 tabs, eRx: [facility] 186, TAKE ONE TABLET BY MOUTH ONCE DAILY Start Date: 05/30/15 Status: Orderedlevothyroxine 150 mcg (0.15 mg) oral tablet 150 mcg 1 tabs, Oral, Daily, recheck lab in 6-8 weeks, # 60 tabs, 0 Refill(s), Pharmacy: [facility] 186, 1 tabs Oral Daily,Instr:recheck lab in 6-8 weeks Start Date: 05/10/15 Status: Orderedlisinopril-hydrochlorothiazide 20 mg-25 mg oral tablet 0.5 tabs, Oral, Daily, # 45 tabs, 1 Refill(s), Pharmacy: [place] [id number] Start Date: 02/17/15 Status: OrderedLORazepam 1 mg oral tablet 0.5-1 tabs, Oral, q8hr, as needed for anxiety, whit wilson [id number], # 90 tabs, 0 Refill(s) Start Date: 05/30/15 Status: OrderedMetoprolol Succinate ER 50 mg oral tablet, extended release See Instructions, TAKE ONE TABLET BY MOUTH EVERY DAY, # 90 tabs, eRx: [facility] 186, TAKE ONE TABLET BY MOUTH EVERY DAY Start Date: 05/30/15 Status: OrderedNasonex 50 mcg/inh nasal spray 1 sprays, Nasal, BID, 0 Refill(s) Start Date: 10/27/13 Status: Orderedpravastatin 40 mg oral tablet See Instructions, TAKE ONE TABLET BY MOUTH ONCE DAILY, # 90 tabs, eRx: [facility] 186, TAKE ONE TABLET BY MOUTH ONCE DAILY Start Date: 05/30/15 Status: OrderedpredniSONE 10 mg oral tablet See Instructions, 4 tabs dly 3 days, 3 tabs dly 3 days, 2 tabs dly 3 days, one tab dly 3 days then stop. with food, # 30 tabs, 0 Refill(s), 4 tabs dly 3 days, 3 tabs dly 3 days, 2 tabs dly 3 days, one tab dly 3 days then stop. with food Start Date: 07/04/15 Stop Date: 08/17/15 Status: OrderedRutin oral tablet 1 tabs, Oral, BID, 50 MG, 0 Refill(s) Start Date: 10/28/13 Status: OrderedZithromax Z-Anish 250 mg oral tablet 1 packets, Oral, Daily, as directed on package labeling, X 5 days, # 6 tabs, 0 Refill(s), Pharmacy: [facility] 186, 1 packets Oral Daily,x5 days,Instr: as directed on package labeling Start Date: 07/04/15 Stop Date: 07/09/15 Status: Ordered Results Chemistry Most recent to oldest [Reference Range]: 1 TSH with Reflex Free T4 [0.35-4.94] 1.80 (07/04/15 2:15 PM) Immunizations Vaccine Date Refusal Reason tetanus/diphth/pertuss (Tdap) adult/adol 10/09/12 pneumococcal 13-valent conjugate vaccine 11/04/14 pneumococcal 13-valent conjugate vaccine 07/29/14 pneumococcal 23-polyvalent vaccine 03/31/12 zoster vaccine live 10/09/12 Procedures Procedure Date Related Diagnosis Body Site Colonoscopy 2006 Social History Social History Type Response Smoking Status Former smoker Assessment and Plan Extracted from: Title: Office Visit Note-sinus Author: Katarzyna eReder APRN Date: 07/04/15 Assessment/Plan 1.Acute sinusitis Patient counseled regarding diagnosis, natural history, pathophysiology, typical treatment, and expected results. Questions and concerns answered. There is no overlying erythema to suggest an associated cellulitis or abscess formation. Take antibiotics till complete. Saline or Jovany med nasal rinses twice a day may be helpful. Tylenol per package instructions for comfort. Notify office if symptoms fail to improve. Ordered: Office Visit Level 4 Est 84373 2.Oral candidiasis Diflucan 100 mg dailyfor 14 days. Discussed the importance of removing his dentures and rinsing his mouth well after each use of Advair. Ordered: Office Visit Level 4 Est 48986 Allergic rhinitis due to pollen Continue using Priya. Nasal rinses may be beneficial. Continue fluticasone. Ordered: Office Visit Level 4 Est 11642 Chronic obstructive pulmonary disease Mild exacerbation. Prednisone taper. Side effects discussed. Take with food. Increase Advair 250/50 twice a day. Office visit if symptoms fail to improve. Ordered: Office Visit Level 4 Est 58117 Hypothyroidism (disorder) Recheck TSH today. Rhinitis medicamentosa Discussed with patient what happens with long-term aspirin use and trying to discontinue it. Recommend he try to taper off of it over the next 2 weeks. Ordered: Office Visit Level 4 Est 26161 Orders: azithromycin, 1 packets, Oral, Daily, as directed on package labeling , X 5 days, # 6 tabs, 0 Refill(s), [facility] 186, 1 packets Oral Daily,x5 days,Instr:as directed on package labeling fluconazole, 100 mg 1 tabs, Oral, Daily, X 14 days, # 14 tabs, 0 Refill(s), [facility], 1 tabs Oral Daily,x14 days fluticasone-salmeterol, 1 puffs, Inhalation, BID, # 180 Each, 0 Refill(s), Pharmacy: [facility] 186 predniSONE, See Instructions, 4 tabs dly 3 days, 3 tabs dly 3 days, 2 tabs dly 3 days, one tab dly 3 days then stop. with food, # 30 tabs, 0 Refill(s), 4 tabs dly 3 days, 3 tabs dly 3 days, 2 tabs dly 3 days, one tab dly 3 days then stop. with food
--- OUTSIDE RECORDS SUMMARY | 2017-04-13 16:06 | External Medical Summary | Referral Summary ---
:1940 Author Organization [facility] [place] [address] Care Team Providers Name Role Phone Juan Francisco Doran Primary Care Physician Encounter VC Date(s): 08/04/15 - 08/04/15 [facility] [place] [phone] [place] Discharge Diagnosis: Benign essential hypertension Discharge Diagnosis: Hypothyroidism (disorder) Discharge Diagnosis: Chronic kidney disease (CKD) Discharge Diagnosis: Chronic obstructive pulmonary disease Discharge Diagnosis: Pure hypercholesterolemia Discharge Disposition: 01-Home or Self Care Attending Physician: Juan Francisco Doran MD Admitting Physician: Juan Francisco Doran MD Vital Signs Most recent to oldest [Reference Range]: 1 Temperature Tympanic [36.6-38.1 degC] 36.6 degC (08/04/15 7:57 AM) Peripheral Pulse Rate [60-100 bpm] 80 bpm (08/04/15 7:57 AM) Respiratory Rate [14-20 br/min] 16 br/min (08/04/15 7:57 AM) Blood Pressure [90-140/60-90 mmHg] 120/80 mmHg (08/04/15 7:57 AM) Problem List Condition Effective Dates [...] BID, # 180 Each, 0 Refill(s), Pharmacy: [facility] 186 Start Date: 07/04/15 Status: OrderedAllegra 24 Hour Allergy oral tablet 180 mg 1 tabs, Oral, Daily, # 30 tabs, 3 Refill(s), Pharmacy: [facility] 186, 1 tabs Oral Daily Start Date: 05/06/15 Status: Orderedaspirin 81 mg oral tablet 1 tabs, Oral, Daily, # 90 tabs, 0 Refill(s) Start Date: 10/27/13 Status: OrderedC-Time 500 mg oral capsule caps, Oral, BID, 0 Refill(s) Start Date: 10/28/13 Status: Ordereddesoximetasone 0.25% topical cream See Instructions, APPLY TWICE DAILY, # 60 unknown unit, eRx: [facility] 186, APPLY TWICE DAILY Start Date: 05/19/14 Status: Orderedfluticasone 50 mcg/inh nasal spray See Instructions, USE TWO SPRAY(S) IN EACH NOSTRIL TWICE DAILY, # 1 Each, 2 Refill(s), Pharmacy: [place] [id number] Start Date: 05/06/15 Status: Orderedgemfibrozil 600 mg oral tablet See Instructions, TAKE ONE TABLET BY MOUTH ONCE DAILY, # 90 tabs, eRx: [place] [id number], TAKE ONE TABLET BY MOUTH ONCE DAILY Start Date: 05/30/15 Status: Orderedlevothyroxine 150 mcg (0.15 mg) oral tablet 150 mcg 1 tabs, Oral, Daily, # 90 tabs, 1 Refill(s), Pharmacy: [place] [id number], 1 tabs Oral Daily Start Date: 07/06/15 Status: Orderedlisinopril-hydrochlorothiazide 20 mg-25 mg oral tablet 0.5 tabs, Oral, Daily, # 45 tabs, 1 Refill(s), Pharmacy: [place] [id number] Start Date: 02/17/15 Status: OrderedLORazepam 1 mg oral tablet 0.5-1 tabs, Oral, q8hr, as needed for anxiety, whit wilson [id number], # 90 tabs, 0 Refill(s) Start Date: 05/30/15 Status: OrderedMetoprolol Succinate ER 50 mg oral tablet, extended release See Instructions, TAKE ONE TABLET BY MOUTH EVERY DAY, # 90 tabs, eRx: [facility] 186, TAKE ONE TABLET BY MOUTH EVERY DAY Start Date: 05/30/15 Status: OrderedNasonex 50 mcg/inh nasal spray 1 sprays, Nasal, BID, 0 Refill(s) Start Date: 10/27/13 Status: Orderedpravastatin 40 mg oral tablet See Instructions, TAKE ONE TABLET BY MOUTH ONCE DAILY, # 90 tabs, eRx: [facility] 186, TAKE ONE TABLET BY MOUTH ONCE DAILY Start Date: 05/30/15 Status: OrderedRutin oral tablet 1 tabs, Oral, [...] Note Author: Juan Francisco Doran MD Date: 08/04/15 Assessment/Plan 1.Benign essential hypertension Blood pressures well-controlled no changescontinue current treatment plan. Report card reviewed and provided. Follow-up in3 months. Ordered: Office Visit Level 4 Est 40140 2.Chronic kidney disease (CKD) Chronic stable no change in treatment plan recheck in 3 months with fasting lab. Ordered: Office Visit Level 4 Est 19734 3.Chronic obstructive pulmonary disease He is doing better and increased dose of Advair continue that without changerecheck in 3 months. Ordered: Office Visit Level 4 Est 98025 4.Hypothyroidism (disorder) Recent TSH was in the normal range. Change in dosage recommended. Ordered: Office Visit Level 4 Est 77849 5.Pure hypercholesterolemia Chronic relatively stable. Recheck in 3 months with fasting lab. Continue current treatment plan. Ordered: Office Visit Level 4 Est 97944
--- OUTSIDE RECORDS SUMMARY | 2017-04-13 16:06 | External Medical Summary | Referral Summary ---
:1940 Author Organization [facility] [place] [phone] Care Team Providers Name Role Phone Juan Francisco Doran Primary Care Physician Encounter VC Date(s): 07/29/14 - 07/29/14 [facility] [place] [phone] [place] Discharge Diagnosis: [...] rhinitis(Confirmed) Active Benign essential hypertension Active (disorder)(Confirmed) COPD (chronic obstructive pulmonary Active disease)(Confirmed) Chronic kidney disease Active (CKD)(Confirmed) Hypothyroidism (disorder)(Confirmed) Active ED (erectile dysfunction)(Confirmed) Active Pure hypercholesterolemia Active (disorder)(Confirmed) Allergies, Adverse Reactions, Alerts Substance Reaction Severity Status codeine Active iodine Active Medications Advair Diskus 100 mcg-50 mcg inhalation powder See Instructions, INHALE ONE DOSE BY MOUTH TWICE DAILY, # 60 unknown unit, 4 Refill(s), eRx: [facility] 186, INHALE ONE DOSE BY MOUTH TWICE DAILY Start Date: 09/06/14 Status: Orderedaspirin 81 mg oral tablet 1 tabs, Oral, Daily, # 90 tabs, 0 Refill(s) Start Date: 10/27/13 Status: OrderedC-Time 500 mg oral capsule caps, Oral, BID, 0 Refill(s) Start Date: 10/28/13 Status: Ordereddesoximetasone 0.25% topical cream See Instructions, APPLY TWICE DAILY, # 60 unknown unit, [facility]: [facility], APPLY TWICE DAILY Start Date: 05/19/14 Status: Orderedfluticasone 50 mcg/inh nasal spray See Instructions, USE ONE SPRAY(S) IN EACH NOSTRIL TWICE DAILY, # 16 unknown unit, 4 Refill(s), [facility] 186, USE ONE SPRAY(S) IN EACH NOSTRIL TWICE DAILY Start Date: 09/06/14 Status: Orderedgemfibrozil 600 mg oral tablet See Instructions, TAKE ONE TABLET BY MOUTH EVERY DAY, # 90 tabs, [facility]Rx: [facility] 186, TAKE ONE TABLET BY MOUTH EVERY DAY Start Date: 12/06/14 Status: Orderedlevothyroxine 137 mcg (0.137 mg) oral tablet See Instructions, TAKE ONE TABLET BY MOUTH EVERY DAY, # 90 tabs, eRx: [facility] 186, TAKE ONE TABLET BY MOUTH EVERY DAY Start Date: 12/06/14 Status: OrderedLORazepam 1 mg oral tablet 0.5-1 tabs, Oral, q8hr, as needed for anxiety, whit wilson [id number], # 90 tabs, 0 Refill(s) Start Date: 12/06/14 Status: OrderedMetoprolol Succinate ER 50 mg oral tablet, extended release See Instructions, TAKE ONE TABLET BY MOUTH EVERY DAY, # 90 tabs, eRx: [facility] 186, TAKE ONE TABLET BY MOUTH EVERY DAY Start Date: 12/06/14 Status: OrderedNasonex 50 mcg/inh nasal spray 1 sprays, Nasal, BID, 0 Refill(s) Start Date: 10/27/13 Status: Orderedpravastatin 40 mg oral tablet See Instructions, TAKE ONE TABLET BY MOUTH EVERY DAY, # 90 tabs, [facility]Rx: [facility] 186, TAKE ONE TABLET BY MOUTH EVERY DAY Start Date: 12/06/14 Status: OrderedRutin oral tablet 1 tabs, Oral, [...] as told by your doctor. Only take [id number] or prescription medicines as told by your [...] 08/13/2008 Document Revised: 12/16/2013 Document Reviewed: 10/22/2013 [facility]. No follow up information was provided. Extracted [...]
--- OUTSIDE RECORDS SUMMARY | 2017-04-13 16:07 | External Medical Summary | Referral Summary ---
:1940 Author Organization [facility] [place] [address] Care Team Providers Name Role Phone Juan Francisco Doran Primary Care Physician Encounter VC Date(s): 07/29/14 - 07/29/14 [facility] [place] [phone] [place] Discharge [...] # 60 unknown unit, 4 Refill(s), eRx: [facility] 186, INHALE ONE DOSE BY MOUTH TWICE DAILY Start Date: 09/06/14 Status: Orderedaspirin 81 mg oral tablet 1 tabs, Oral, Daily, # 90 tabs, 0 Refill(s) Start Date: 10/27/13 Status: OrderedC-Time 500 mg oral capsule caps, Oral, BID, 0 Refill(s) Start Date: 10/28/13 Status: Ordereddesoximetasone 0.25% topical cream See Instructions, APPLY TWICE DAILY, # 60 unknown unit, eRx: [facility] 186, APPLY TWICE DAILY Start Date: 05/19/14 Status: Orderedfluticasone 50 mcg/inh nasal spray See Instructions, USE ONE SPRAY(S) IN EACH NOSTRIL TWICE DAILY, # 16 unknown unit, 4 Refill(s), eRx:[facility] 186, USE ONE SPRAY(S) IN EACH NOSTRIL TWICE DAILY Start Date: 09/06/14 Status: Orderedgemfibrozil 600 mg oral tablet See Instructions, TAKE ONE TABLET BY MOUTH EVERY DAY, # 90 tabs, eRx: [facility] 186, TAKE ONE TABLET BY MOUTH EVERY DAY Start Date: 12/06/14 Status: Orderedlevothyroxine 137 mcg (0.137 mg) oral tablet See Instructions, TAKE ONE TABLET BY MOUTH EVERY DAY, # 90 tabs, eRx: [facility] 186, TAKE ONE TABLET BY MOUTH EVERY DAY Start Date: 12/06/14 Status: OrderedLORazepam 1 mg oral tablet 0.5-1 tabs, Oral, q8hr, as needed for anxiety, whit wilson [id number], # 90 tabs, 0 Refill(s) Start Date: 12/06/14 Status: OrderedMetoprolol Succinate ER 50 mg oral tablet, extended release See Instructions, TAKE ONE TABLET BY MOUTH EVERY DAY, # 90 tabs, eRx: [facility] 186, TAKE ONE TABLET BY MOUTH EVERY DAY Start Date: 12/06/14 Status: OrderedNasonex 50 mcg/inh nasal spray 1 sprays, Nasal, BID, 0 Refill(s) Start Date: 10/27/13 Status: Orderedpravastatin 40 mg oral tablet See Instructions, TAKE ONE TABLET BY MOUTH EVERY DAY, # 90 tabs, eRx: [facility] 186, TAKE ONE TABLET BY MOUTH EVERY [...] as told by your doctor. Only take yzeh-ebz-drccmzm or prescription medicines as told by your [...] 08/13/2008 Document Revised: 12/16/2013 Document Reviewed: 10/22/2013 [facility]. No follow up information was provided. Extracted [...]
--- OUTSIDE RECORDS SUMMARY | 2017-04-13 16:07 | External Medical Summary | Referral Summary ---
:1940 Author Organization [facility] [place] [address] Care Team Providers Name Role Phone Juan Francisco Doran Primary Care Physician Encounter VC Date(s): 03/26/16 - 03/26/16 [facility] [place] [phone] [place] Discharge Diagnosis: Chronic obstructive pulmonary disease Discharge Diagnosis: Acute bronchitis Discharge Disposition: 01-Home or Self Care Attending Physician: Juan Francisco Doran MD Admitting Physician: Juan Francisco Doran MD Vital Signs Most recent to oldest [Reference Range]: 1 Temperature Tympanic [36.6-38.1 degC] 36.6 degC (03/26/16 11:01 AM) Peripheral Pulse Rate [60-100 bpm] 68 bpm (03/26/16 11:01 AM) Respiratory Rate [14-20 br/min] 16 br/min (03/26/16 11:01 AM) Blood Pressure [90-140/60-90 mmHg] 144/84 mmHg *HI* (03/26/16 11:01 AM) Problem List Condition Effective Dates Status [...] # 180 unknown unit, 1 Refill(s), eRx: [facility] 186, INHALE ONE DOSE BY MOUTH TWICE DAILY Start Date: 11/21/15 Status: Orderedalbuterol CFC free 90 mcg/inh inhalation aerosol 2 puffs, Inhalation, QID, as needed for wheezing, # 18 g, 2 Refill(s), Pharmacy : [facility] 186 Start Date: 02/07/16 Status: OrderedAllegra 24 Hour Allergy oral tablet 180 mg 1 tabs, Oral, Daily, # 30 tabs, 3 Refill(s), Pharmacy: [facility] 186, 1 tabs Oral Daily Start Date: 05/06/15 Status: Orderedaspirin 81 mg oral tablet 1 tabs, Oral, Daily, # 90 tabs, 0 Refill(s) Start Date: 10/27/13 Status: OrderedC-Time 500 mg oral capsule caps, Oral, BID, 0 Refill(s) Start Date: 10/28/13 Status: Ordereddesoximetasone 0.25% topical cream See Instructions, APPLY TWICE DAILY, # 60 unknown unit, eRx: [facility] 186, APPLY TWICE DAILY Start Date: 05/19/14 Status: Orderedgemfibrozil 600 mg oral tablet See Instructions, TAKE ONE TABLET BY MOUTH ONCE DAILY, # 90 tabs, eRx: [place] [address] Start Date: 03/09/16 Status: OrderedLevaquin 500 mg oral tablet 500 mg 1 tabs, Oral, q24hr, X 10 days, # 10 tabs, 0 Refill(s), Pharmacy: [facility] 186, 1 tabs Oral q24hr,x10 days Start Date: 03/26/16 Stop Date: 04/05/16 Status: Orderedlevothyroxine 150 mcg (0.15 mg) oral tablet 150 mcg 1 tabs, Oral, Daily, # 90 tabs, 1 Refill(s), Pharmacy: [facility] 186, 1 tabs Oral Daily Start Date: 07/06/15 Status: Orderedlisinopril-hydrochlorothiazide 20 mg-25 mg oral tablet See Instructions, TAKE ONE-HALF TABLET BY MOUTH ONCE DAILY, # 45 tabs, 3 Refill( s), eRx: [facility] 186, TAKE ONE-HALF TABLET BY MOUTH ONCE DAILY Start Date: 02/17/16 Status: OrderedLORazepam 1 mg oral tablet 0.5-1 tabs, Oral, q8hr, as needed for anxiety, whit wilson [id number], # 90 tabs, 0 Refill(s) Start Date: 01/06/16 Status: OrderedMetoprolol Succinate ER 50 mg oral tablet, extended release See Instructions, TAKE ONE TABLET BY MOUTH ONCE DAILY, # 90 tabs, eRx: [facility] 186 Start Date: 03/09/16 Status: OrderedNeilMed Sinus Rinse Kit Nasal, BID, as needed for sinus congestion, 0 Refill(s) Start Date: 03/26/16 Status: Orderedpravastatin 40 mg oral tablet See Instructions, TAKE ONE TABLET BY MOUTH ONCE DAILY, # 90 tabs, eRx: [facility] 186 Start Date: 03/09/16 Status: OrderedRutin oral tablet 1 tabs, Oral, BID, 50 MG, 0 Refill(s) Start Date: 10/28/13 Status: OrderedTessalon Perles 100 mg oral capsule 100 mg 1 caps, Oral, TID, # 30 caps, 0 Refill(s), Pharmacy: [facility] 186, 1 caps Oral TID Start Date: 03/26/16 Status: OrderedViagra 100 mg oral tablet 100 mg 1 tabs, Oral, Daily, 1 hour before sexual activity, # 10 tabs, 3 Refill(s ), Pharmacy: [facility] 186, 1 tabs Oral Daily,Instr:1 hour before sexual activity Start Date: 10/27/15 Status: Ordered Results No data available for this section Immunizations Given and Recorded Vaccine Date Status Refusal Reason tetanus/diphth/pertuss (Tdap) adult/adol 10/09/12 Recorded pneumococcal 13-valent conjugate vaccine 02/07/16 Given pneumococcal 13-valent conjugate vaccine 11/04/14 Given pneumococcal 13-valent conjugate vaccine 07/29/14 Given pneumococcal 13-valent conjugate vaccine1 03/31/12 Given pneumococcal 23-polyvalent vaccine 03/31/12 Recorded zoster vaccine live 10/09/12 Given 1Result Comment: [07/28/2014 Uncharted] error Procedures Procedure Date Related Diagnosis Body Site Colonoscopy 2007 Eye surgery Shoulder repair1 1both in the past Social History Social History Type Response Smoking Status Former smoker Assessment and Plan Extracted from: Title: Office Visit Note Author: Juan Francisco Doran MD Date: 03/26/16 Assessment/Plan 1.Acute bronchitis I've recommendedLevaquin 500 mg daily for 10 days. Tessalon Perles as needed for cough. His symptoms progress or worsen or don't seem to improve he' ll let us know. Ordered: Office Visit Level 3 Est 06781 2.Chronic obstructive pulmonary disease Overall this appears to be stable. No steroids needed at this time. If he becomes more wheezy or having increasing shortness of breath he'll let us know. Ordered: Office Visit Level 3 Est 83578
--- OUTSIDE RECORDS SUMMARY | 2017-04-13 16:07 | External Medical Summary | Referral Summary ---
:1940 Author Organization [facility] [place] [address] Care Team Providers Name Role Phone Juan Francisco Doran Primary Care Physician Encounter VC Date(s): 07/29/14 - 07/29/14 [facility] [place] [phone] [place] Discharge Diagnosis: [...] # 60 unknown unit, 4 Refill(s), eRx: [facility], INHALE ONE DOSE BY MOUTH TWICE DAILY Start Date: 09/06/14 Status: Orderedaspirin 81 mg oral tablet 1 tabs, Oral, Daily, # 90 tabs, 0 Refill(s) Start Date: 10/27/13 Status: OrderedC-Time 500 mg oral capsule caps, Oral, BID, 0 Refill(s) Start Date: 10/28/13 Status: Ordereddesoximetasone 0.25% topical cream See Instructions, APPLY TWICE DAILY, # 60 unknown unit, eRx: [facility] 186, APPLY TWICE DAILY Start Date: 05/19/14 Status: Orderedfluticasone 50 mcg/inh nasal spray See Instructions, USE ONE SPRAY(S) IN EACH NOSTRIL TWICE DAILY, # 16 unknown unit, 4 Refill(s), eRx:[facility] [employer] [facility] [facility] 186, USE ONE SPRAY(S) IN EACH NOSTRIL TWICE DAILY Start Date: 09/06/14 Status: Orderedgemfibrozil 600 mg oral tablet See Instructions, TAKE ONE TABLET BY MOUTH EVERY DAY, # 90 tabs, eRx: [facility] [employer] [facility] 186, TAKE ONE TABLET BY MOUTH EVERY DAY Start Date: 12/06/14 Status: Orderedlevothyroxine 137 mcg (0.137 mg) oral tablet See Instructions, TAKE ONE TABLET BY MOUTH EVERY DAY, # 90 tabs, eRx: [facility] 186, TAKE ONE TABLET BY MOUTH EVERY DAY Start Date: 12/06/14 Status: OrderedLORazepam 1 mg oral tablet 0.5-1 tabs, Oral, q8hr, as needed for anxiety, whit wilson [id number], # 90 tabs, 0 Refill(s) Start Date: 12/06/14 Status: OrderedMetoprolol Succinate ER 50 mg oral tablet, extended release See Instructions, TAKE ONE TABLET BY MOUTH EVERY DAY, # 90 tabs, eRx: [facility] 186, TAKE ONE TABLET BY MOUTH EVERY DAY Start Date: 12/06/14 Status: OrderedNasonex 50 mcg/inh nasal spray 1 sprays, Nasal, BID, 0 Refill(s) Start Date: 10/27/13 Status: Orderedpravastatin 40 mg oral tablet See Instructions, TAKE ONE TABLET BY MOUTH EVERY DAY, # 90 tabs, eRx: [facility] [facility] 186, TAKE ONE TABLET BY [...] as told by your doctor. Only take adhe-pac-podlawo or prescription medicines as told by your [...] 08/13/2008 Document Revised: 12/16/2013 Document Reviewed: 10/22/2013 [facility]. No follow up information was provided. [...]
--- OUTSIDE RECORDS SUMMARY | 2017-04-13 16:07 | External Medical Summary | Referral Summary ---
:1940 Author Organization [facility] [place] [address] Care Team Providers Name Role Phone Juan Francisco Doran Primary Care Physician Encounter VC Date(s): 07/29/14 - 07/29/14 [facility] [place] [phone] [place] Discharge Diagnosis: [...] # 60 unknown unit, 4 Refill(s), eRx: [facility] 186, INHALE ONE DOSE BY MOUTH TWICE DAILY Start Date: 09/06/14 Status: Orderedaspirin 81 mg oral tablet 1 tabs, Oral, Daily, # 90 tabs, 0 Refill(s) Start Date: 10/27/13 Status: OrderedC-Time 500 mg oral capsule caps, Oral, BID, 0 Refill(s) Start Date: 10/28/13 Status: Ordereddesoximetasone 0.25% topical cream See Instructions, APPLY TWICE DAILY, # 60 unknown unit, [facility]Rx: [facility], APPLY TWICE DAILY Start Date: 05/19/14 Status: Orderedfluticasone 50 mcg/inh nasal spray See Instructions, USE ONE SPRAY(S) IN EACH NOSTRIL TWICE DAILY, # 16 unknown unit, 4 Refill(s), [facility], USE ONE SPRAY(S) IN EACH NOSTRIL TWICE DAILY Start Date: 09/06/14 Status: Orderedgemfibrozil 600 mg oral tablet See Instructions, TAKE ONE TABLET BY MOUTH EVERY DAY, # 90 tabs, eRx: [facility] 186, TAKE ONE TABLET BY MOUTH EVERY DAY Start Date: 12/06/14 Status: Orderedlevothyroxine 137 mcg (0.137 mg) oral tablet See Instructions, TAKE ONE TABLET BY MOUTH EVERY DAY, # 90 tabs, eRx: [facility] 186, TAKE ONE TABLET BY MOUTH EVERY DAY Start Date: 12/06/14 Status: OrderedLORazepam 1 mg oral tablet 0.5-1 tabs, Oral, q8hr, as needed for anxiety, whit wilson [id number], # 90 tabs, 0 Refill(s) Start Date: 12/06/14 Status: OrderedMetoprolol Succinate ER 50 mg oral tablet, extended release See Instructions, TAKE ONE TABLET BY MOUTH EVERY DAY, # 90 tabs, eRx: [facility] 186, TAKE ONE TABLET BY MOUTH EVERY DAY Start Date: 12/06/14 Status: OrderedNasonex 50 mcg/inh nasal spray 1 sprays, Nasal, BID, 0 Refill(s) Start Date: 10/27/13 Status: Orderedpravastatin 40 mg oral tablet See Instructions, TAKE ONE TABLET BY MOUTH EVERY DAY, # 90 tabs, eRx: [facility] 186, TAKE ONE TABLET BY MOUTH [...] as told by your doctor. Only take dcsz-njc-egkqlor or prescription medicines as told by your [...] 08/13/2008 Document Revised: 12/16/2013 Document Reviewed: 10/22/2013 [facility]. No follow up information was provided. Extracted [...]
--- OUTSIDE RECORDS SUMMARY | 2017-04-13 16:07 | External Medical Summary | Referral Summary ---
:1940 Author Organization [facility] [place] [address] Care Team Providers Name Role Phone Juan Francisco Doran Primary Care Physician Encounter VC Date(s): 05/06/15 - 05/06/15 [facility] [place] [phone] [place] Discharge Diagnosis: Benign essential hypertension Discharge Diagnosis: Pure hypercholesterolemia Discharge Diagnosis: Hypothyroidism (disorder) Discharge Diagnosis: COPD (chronic obstructive pulmonary disease) Discharge Diagnosis: Allergic rhinitis Discharge Disposition: 01-Home or Self Care Attending Physician: Juan Francisco Doran MD Admitting Physician: Juan Francisco Doran MD Vital Signs Most recent to oldest [Reference Range]: 1 Temperature Tympanic [36.6-38.1 degC] 36.3 degC *LOW* (05/06/15 7:50 AM) Peripheral Pulse Rate [60-100 bpm] 68 bpm (05/06/15 7:50 AM) Blood Pressure [90-140/60-90 mmHg] 116/70 mmHg (05/06/15 7:50 AM) Problem List Condition Effective Dates Status [...] # 60 unknown unit, 5 Refill(s), eRx: [facility] 186, INHALE ONE DOSE BY MOUTH TWICE DAILY Start Date: 03/21/15 Status: OrderedAllegra 24 Hour Allergy oral tablet 180 mg 1 tabs, Oral, Daily, # 30 tabs, 3 Refill(s), Pharmacy: [place] [address], 1 tabs Oral Daily Start Date: 05/06/15 Status: Orderedaspirin 81 mg oral tablet 1 tabs, Oral, Daily, # 90 tabs, 0 Refill(s) Start Date: 10/27/13 Status: OrderedC-Time 500 mg oral capsule caps, Oral, BID, 0 Refill(s) Start Date: 10/28/13 Status: Ordereddesoximetasone 0.25% topical cream See Instructions, APPLY TWICE DAILY, # 60 unknown unit, eRx: [place] [address], APPLY TWICE DAILY Start Date: 05/19/14 Status: Orderedfluticasone 50 mcg/inh nasal spray See Instructions, USE TWO SPRAY(S) IN EACH NOSTRIL TWICE DAILY, # 1 Each, 2 Refill(s), Pharmacy: [place] [address] Start Date: 05/06/15 Status: Orderedgemfibrozil 600 mg oral tablet See Instructions, TAKE ONE TABLET BY MOUTH EVERY DAY, # 90 tabs, eRx: [place] [address], TAKE ONE TABLET BY MOUTH EVERY DAY Start Date: 02/01/15 Status: Orderedlevothyroxine 137 mcg (0.137 mg) oral tablet See Instructions, TAKE ONE TABLET BY MOUTH EVERY DAY, # 90 tabs, eRx: [place] [address], TAKE ONE TABLET BY MOUTH EVERY DAY Start Date: 02/01/15 Status: Orderedlisinopril-hydrochlorothiazide 20 mg-25 mg oral tablet 0.5 tabs, Oral, Daily, # 45 tabs, 1 Refill(s), Pharmacy: [place] [address] Start Date: 02/17/15 Status: OrderedLORazepam 1 mg oral tablet 0.5-1 tabs, Oral, q8hr, as needed for anxiety, whit wilson [phone], # 90 tabs, 0 Refill(s) Start Date: 02/01/15 Status: OrderedMetoprolol Succinate ER 50 mg oral tablet, extended release See Instructions, TAKE ONE TABLET BY MOUTH EVERY DAY, # 90 tabs, eRx: [place] [address], TAKE ONE TABLET BY MOUTH EVERY DAY Start Date: 02/01/15 Status: OrderedNasonex 50 mcg/inh nasal spray 1 sprays, Nasal, BID, 0 Refill(s) Start Date: 10/27/13 Status: Orderedpravastatin 40 mg oral tablet See Instructions, TAKE ONE TABLET BY MOUTH EVERY DAY, # 90 tabs, eRx: [facility] 186, TAKE ONE TABLET BY MOUTH EVERY DAY Start Date: 02/01/15 Status: OrderedRutin oral tablet 1 tabs, Oral, BID, 50 MG, 0 Refill(s) Start Date: 10/28/13 Status: Ordered Results Chemistry Most recent to oldest [Reference Range]: 1 Sodium Lvl [135-144 mEq/L] 140 mEq/L (05/06/15 8:25 AM) Potassium Lvl [3.5-5.2 mEq/L] 4.0 mEq/L (05/06/15 8:25 AM) Chloride [99-111 mEq/L] 100 mEq/L (05/06/15 8:25 AM) CO2 [23-31 mEq/L] 32 mEq/L *HI* (05/06/15 8:25 AM) AGAP [3-20] 8 (05/06/15 8:25 AM) BUN [8-26 mg/dL] 15 mg/dL (05/06/15 8:25 AM) Glucose Lvl [70-99 mg/dL] 111 mg/dL *HI* (05/06/15 8:25 AM) Creatinine Lvl [0.72-1.25 mg/dL] 1.16 mg/dL (05/06/15 8:25 AM) eGFR [>60 mL/min] >60 mL/min 1 (05/06/15 8:25 AM) Calcium Lvl [8.9-10.5 mg/dL] 9.4 mg/dL (05/06/15 8:25 AM) Albumin Lvl [3.4-4.8 gm/dL] 4.4 gm/dL (05/06/15 8:25 AM) Total Protein [6.2-8.1 gm/dL] 7.4 gm/dL (05/06/15 8:25 AM) Globulin [1.8-4.0 gm/dL] 3.0 gm/dL (05/06/15 8:25 AM) ALT [0-55 U/L] 49 U/L (05/06/15 8:25 AM) AST [5-34 U/L] 52 U/L *HI* (05/06/15 8:25 AM) Alk Phos [40-150 U/L] 74 U/L (05/06/15 8:25 AM) Bili Total [0.2-1.2 mg/dL] 0.5 mg/dL (05/06/15 8:25 AM) Chol [0-199 mg/dL] 140 mg/dL (05/06/15 8:25 AM) Trig [0-149 mg/dL] 178 mg/dL *HI* (05/06/15 8:25 AM) HDL [40-84 mg/dL] 25 mg/dL *LOW* (05/06/15 8:25 AM) LDL [0-130 mg/dL] 79 mg/dL (05/06/15 8:25 AM) VLDL Cholesterol [0-28 mg/dL] 36 mg/dL *HI* (05/06/15 8:25 AM) Cardiac Risk [0.0-5.7] 5.6 (05/06/15 8:25 AM) T4 Free [0.7-1.5 ng/dL] 0.9 ng/dL (05/06/15 8:25 AM) TSH with Reflex Free T4 [0.35-4.94] 5.54 *HI* (05/06/15 8:25 AM) 1Result Comment: Multiply eGFR results by [...] Note Author: Juan Francisco Doran MD Date: 05/06/15 Assessment/Plan Allergic rhinitis Increase fluticasone to 2 puffs twice a day each nostril and had a leg or 180 one by mouth daily. If not improving he'll let me now. Benign essential hypertension, Essential (primary) hypertension Blood pressures well-controlled no change in current treatment recommended. Laboratory studies ordered report card reviewed and provided. Follow-up in 3 months. Ordered: Comprehensive Metabolic Panel Office Visit Level 4 Est 47075 Chronic obstructive pulmonary disease, unspecified, COPD (chronic obstructive pulmonary disease) Chronic stable no change in current treatment. Ordered: Office Visit Level 4 Est 01968 Hypothyroidism (disorder), Hypothyroidism, unspecified TSH ordered today no change in current treatmentat the moment. Ordered: Office Visit Level 4 Est 42155 Pure hypercholesterolemia, Pure hypercholesterolemia Chronic stable laboratory studies ordered today. Continue current treatment without change. Ordered: Comprehensive Metabolic Panel Lipid Panel Office Visit Level 4 Est 12029 Orders: fexofenadine, 180 mg 1 tabs, Oral, Daily, # 30 tabs, 3 Refill(s), Pharmacy: [facility], 1 tabs Oral Daily fluticasone nasal, See Instructions, USE TWO SPRAY(S) IN EACH NOSTRIL TWICE DAILY, # 1 Each, 2 Refill(s), Pharmacy: [facility]
--- OUTSIDE RECORDS SUMMARY | 2017-04-13 16:07 | External Medical Summary | Continuity of Care Document ---
:1940 Author Organization Via [facility] Allergies Active Description Code Type Severity Reaction Onset Reported/ Identified Relationship Clinical to Patient Status Yes codeine NKMA N/A N/A 07/09/2013 Yes iodine NKMA N/A N/A 07/09/2013 Medications There is no data. Problems Date Dx Attending Type Code Diagnosis Diagnosed By Coded 08/04/2015 Espinoza, Final E03.9 Hypothyroidism, Juan Francisco K unspecified 08/04/2015 Espinoza, Final I10 Essential (primary) Juan Fracnisco K hypertension 08/04/2015 Espinoza, Final J44.9 Chronic obstructive Juan Francisco K pulmonary disease, unspecified 08/04/2015 Espinoza, Final N18.3 Chronic kidney disease, Juan Francisco K stage 3 (moderate) 08/04/2015 Espinoza, Final E78.0 Pure hypercholesterolemia Juan Francisco K 09/06/2015 Espinoza, Final R20.0 Anesthesia of skin Juan Francisco K 10/27/2015 Espinoza, Final E03.9 Hypothyroidism, Juan Francisco K unspecified 10/27/2015 Espinoza, Final I10 Essential (primary) Juan Francisco K hypertension 10/27/2015 Espinoza, Final J44.9 Chronic obstructive Juan Francisco K pulmonary disease, unspecified 10/27/2015 Espinoza, Final N18.3 Chronic kidney disease, Juan Francisco K stage 3 (moderate) 02/07/2016 Espinoza, Final E03.9 Hypothyroidism, Juan Francisco K unspecified 02/07/2016 Espinoza, Final E78.00 Pure Juan Francisco K hypercholesterolemia, unspecified 02/07/2016 Espinoza, Final I10 Essential (primary) Juan Francisco K hypertension 02/07/2016 Espinoza, Final J00 Acute nasopharyngitis Juan Francisco K [common cold] 02/07/2016 Espinoza, Final J06.9 Acute upper respiratory Juan Francisco K infection, unspecified 02/07/2016 Espinoza, Final J44.9 Chronic obstructive Juan Francisco K pulmonary disease, unspecified 02/07/2016 Espinoza, Final N18.3 Chronic kidney disease, Juan Francisco K stage 3 (moderate) 03/26/2016 Espinoza, Final J20.9 Acute bronchitis, Juan Francisco K unspecified 03/26/2016 Espinoza, Final J44.9 Chronic obstructive Juan Francisco K pulmonary disease, unspecified 05/09/2016 Espinoza, Final E03.8 Other specified Juan Francisco K hypothyroidism 05/09/2016 Espinoza, Final I10 Essential (primary) Juan Francisco K hypertension 05/09/2016 Espinoza, Final J44.9 Chronic obstructive Juan Francisco K pulmonary disease, unspecified 05/09/2016 Espinoza, Final N18.3 Chronic kidney disease, Juan Francisco K stage 3 (moderate) 05/09/2016 Espinoza, Final E78.2 Mixed hyperlipidemia Juan Francisco K 05/09/2016 Espinoza, Final M17.12 Unilateral primary Juan Francisco K osteoarthritis, left knee 08/10/2016 Espinoza, Final E03.8 Other specified Juan Francisco K hypothyroidism 08/10/2016 Espinoza, Final E78.00 Pure Juan Francisco K hypercholesterolemia, unspecified 08/10/2016 Espinoza, Final I10 Essential (primary) Juan Francisco K hypertension 08/10/2016 Espinoza, Final J30.1 Allergic rhinitis due to Juan Francisco K pollen 08/10/2016 Espinoza, Final J98.2 Interstitial emphysema Juan Francisco K 08/10/2016 Espinoza, Final N18.3 Chronic kidney disease, Juan Francisco K stage 3 (moderate) 08/10/2016 Espinoza, Final R73.09 Other abnormal glucose Juan Francisco K 11/14/2016 Espinoza, Final I10 Essential (primary) Juan Francisco K hypertension 11/14/2016 Espinoza, Final E03.8 Other specified Juan Francisco K hypothyroidism 11/14/2016 Espinoza, Final E78.00 Pure Juan Francisco K hypercholesterolemia, unspecified 11/14/2016 Espinoza, Final J98.2 Interstitial emphysema Juan Francisco K 11/14/2016 Espinoza, Final 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 Procedures Code Description [place] [address] Office or 08/04/2015 other outpatient visit for the evaluation and management of an established patient, which requires at least 2 of these 3 melendez components: A detailed history; A detailed examination; Medical d 04275 Office or 09/06/2015 other outpatient visit for the evaluation and management of an established patient, which requires at least 2 of these 3 melendez components: An expanded problem focused history; An expanded prob 22548 10/27/2015 Electrocardiogram, routine ECG with at least 12 leads; with interpretation and report 28132 Radiologic 10/27/2015 examination, chest, 2 views, frontal and lateral; 53792 Office or 10/27/2015 other outpatient visit for the evaluation and management of an established patient, which requires at least 2 of these 3 melendez components: A detailed history; A detailed examination; Medical d 88299 Pneumococcal 02/07/2016 conjugate vaccine, 13 valent (PCV13), for intramuscular use 28990 Office or 02/07/2016 other outpatient visit for the evaluation and management of an established patient, which requires at least 2 of these 3 melendez components: A detailed history; A detailed examination; Medical d 57944 Office or 03/26/2016 other outpatient visit for the evaluation and management of an established patient, which requires at least 2 of these 3 melendez components: An expanded problem focused history; An expanded prob 84519 Office or 05/09/2016 other outpatient visit for the evaluation and management of an established patient, which requires at least 2 of these 3 melendez components: A detailed history; A detailed examination; Medical d Office or 08/10/2016 other outpatient visit for the evaluation and management of an established patient, which requires at least 2 of these 3 melendez components: A detailed history; A detailed examination; Medical d Office or 11/14/2016 other outpatient visit for the evaluation and management of an established patient, which requires at least 2 of these 3 melendez components: A detailed history; A detailed examination; Medical d Results Test Result Range Comprehensive Metabolic Panel (CMP) - 05/09/16 08:38 Albumin 4.3 g/dL 3.4-4.8 Alkaline Phosphatase 73 U/L 40-150 ALT (SGPT) 37 U/L 0-55 Anion Gap 8 NA 3-20 AST (SGOT) 38 U/L 5-34 Bilirubin Total 0.5 mg/dL 0.2-1.2 BUN 16 mg/dL 8-26 Calcium 9.7 mg/dL 8.4-10.2 Chloride 105 mEq/L 99-111 CO2 29 mEq/L 23-31 Creatinine 1.14 mg/dL 0.72-1.25 Globulin 3.3 g/dL 1.8-4.0 Glucose 115 mg/dL 70-99 Potassium 4.3 mEq/L 3.5-5.2 Protein 7.6 g/dL 6.0-7.6 Sodium 142 mEq/L 135-144 Lipid Panel - 05/09/16 08:38 Cardiac Risk 6.0 0.0-5.7 Cholesterol 145 mg/dL 0-199 HDL Cholesterol 24 mg/dL 40-84 LDL Cholesterol 99 mg/dL 0-130 Triglycerides 109 mg/dL 0-149 VLDL Cholesterol 22 mg/dL 0-28 eGFR - 05/09/16 08:38 eGFR >60 mL/min >60 TSH with Reflex Free T4 - 05/09/16 08:38 TSH with Reflex Free T4 0.94 uIU/mL 0.35-4.94 Comprehensive Metabolic Panel (CMP) - 11/14/16 08:47 Albumin 4.3 g/dL 3.4-4.8 Alkaline Phosphatase 74 U/L 40-150 ALT (SGPT) 44 U/L 0-55 Anion Gap 5 mEq/L 3-20 AST (SGOT) 48 U/L 5-34 Bilirubin Total 0.5 mg/dL 0.2-1.2 BUN 14 mg/dL 8-26 Calcium 9.7 mg/dL 8.4-10.2 Chloride 103 mEq/L 99-111 CO2 33 mEq/L 23-31 Creatinine 1.12 mg/dL 0.72-1.25 Globulin 3.3 g/dL 1.8-4.0 Glucose 121 mg/dL 70-99 Potassium 4.6 mEq/L 3.5-5.2 Protein 7.6 g/dL 6.0-7.6 Sodium 141 mEq/L 135-144 eGFR - 11/14/16 08:47 eGFR >60 mL/min >60 Hemoglobin A1C - 11/14/16 08:47 Hemoglobin A1C 6.4 % 4.1-5.6 Estimated Average Glucose - 11/14/16 08:47 Estimated Average Glucose 137.0 mg/dL Encounters ACCT No. Visit Discharge Status Pt. Type Provider Facility Loc./Unit Complaint Date/Time [id number] 04/29/2013 04/29/2013 CLS Outpatient 07:58:00 23:59:59 [id number] 11/29/2016 11/29/2016 DIS Outpatient Espinoza [facility] New Annual 03 08:03:00 23:59:00 [facility] [id number] 11/14/2016 11/14/2016 DIS Outpatient Espinoza, [facility] CDM htn 37 07:43:00 23:59:00 [facility] Ramirez dyslip Clinic [id number] 08/10/2016 08/10/2016 DIS Outpatient Espinoza [facility] cdm 74 07:21:00 23:59:00 Juan Francisco Ramirez dyslipid Clinic htn [id number] 05/09/2016 05/09/2016 DIS Outpatient Espinoza, [facility] New FM cdm 3 48 07:48:00 23:59:00 Juan Francisco Ramirez month ck Clinic [id number] 03/26/2016 03/26/2016 DIS Outpatient Espinoza, [facility] New FM SINUS 77 10:40:00 23:59:00 Juan Francisco Ramirez ISSUES Clinic [id number] 02/07/2016 02/07/2016 DIS Outpatient Espinoza, [facility] New FM cdm htn 20 07:27:00 23:59:00 [facility] Ramirez dyslipid Clinic [id number] 10/27/2015 10/27/2015 DIS Outpatient Espinoza, [facility] New FM pre op 77 10:10:00 23:59:00 Juan Francisco Ramirez carpal Clinic tunnel release [id number] 10/27/2015 10/27/2015 DIS Outpatient Espinoza, [facility] New FM TCPA 85 08:16:00 23:59:00 Juan Francisco Ramirez Welcome to Clinic Medicare visit [id number] 10/27/2015 10/27/2015 DIS Outpatient Espinoza, [facility] Mur preop 77 00:01:00 23:59:00 Juan Francisco Ramirez Card Z01.810 Clinic [id number] 09/06/2015 09/06/2015 DIS Outpatient Espinoza, [facility] New FM both hands 18 09:48:00 23:59:00 Juan Francisco Ramirez numb Clinic [id number] 08/04/2015 08/04/2015 DIS Outpatient Espinoza, [facility] New FM dyslip htn 10 07:34:00 23:59:00 Juan Francisco Ramirez Clinic [id number] 07/04/2015 07/04/2015 DIS Outpatient Varinder [facility] New FM cough 78 13:34:00 23:59:00 , Katarzyna Ramirez needs tsh Clinic done [id number] 05/06/2015 05/06/2015 DIS Outpatient Espinoza, [facility] New FM dyslip 24 07:36:00 23:59:00 Juan Francisco Ramirez htn Clinic [id number] 02/01/2015 02/01/2015 DIS Outpatient Espinoza, [facility] New FM 3 MO TED 16 07:34:00 23:59:00 Juan Francisco Ramirez LIPIDS AND Clinic HTN [id number] 11/04/2014 11/04/2014 DIS Outpatient Espinoza, [facility] New FM 3 MO DYS 37 07:38:00 23:59:00 Juan Francisco Ramirez HTN Clinic [id number] 09/16/2014 09/16/2014 DIS Outpatient Lugabriela, [facility] New FM Swollen 29 14:22:00 23:59:00 Don [facility] Raw Tongue. [id number] 01/29/2014 01/29/2014 DIS Outpatient Espinoza, [facility] New FM 3 23 07:33:00 23:59:00 Juan Francisco Ramirez mo/dyslip/ Clinic htn [id number] 07/29/2014 Document 34 23:59:00 Registrati on [id number] 05/05/2014 Document 37 10:20:00 Registrati on [id number] 04/30/2014 Document 90 07:28:00 Registrati on
--- OUTSIDE RECORDS SUMMARY | 2017-04-13 16:07 | External Medical Summary | Referral Summary ---
:1940 Author Organization [facility] Address [address] [place] [address] [place] [phone] Care Team Providers Name Role Phone Juan Francisco Doran Primary Care Physician Encounter VC Date(s): 10/27/15 - 10/27/15 [facility] [place] [phone] [place] Discharge Disposition: 01-Home or Self Care Attending Physician: Juan Francisco Doran MD Admitting Physician: Juan Francisco Doran MD Vital Signs Most recent to oldest [Reference Range]: 1 Peripheral Pulse Rate [60-100 bpm] 60 bpm (10/27/15 9:27 AM) Blood Pressure [90-140/60-90 mmHg] 146/68 mmHg *HI* (10/27/15 9:27 AM) Problem List Condition Effective Dates Status [...] BID, # 180 Each, 0 Refill(s), Pharmacy: [facility] Start Date: 07/04/15 Status: OrderedAllegra 24 Hour Allergy oral tablet 180 mg 1 tabs, Oral, Daily, # 30 tabs, 3 Refill(s), Pharmacy: [facility], 1 tabs Oral Daily Start Date: 05/06/15 Status: Orderedaspirin 81 mg oral tablet 1 tabs, Oral, Daily, # 90 tabs, 0 Refill(s) Start Date: 10/27/13 Status: OrderedC-Time 500 mg oral capsule caps, Oral, BID, 0 Refill(s) Start Date: 10/28/13 Status: Ordereddesoximetasone 0.25% topical cream See Instructions, APPLY TWICE DAILY, # 60 unknown unit, eRx: [facility], APPLY TWICE DAILY Start Date: 05/19/14 Status: Orderedfluticasone 50 mcg/inh nasal spray See Instructions, USE TWO SPRAY(S) IN EACH NOSTRIL TWICE DAILY, # 1 Each, 2 Refill(s), Pharmacy: [facility] Start Date: 05/06/15 Status: Orderedgemfibrozil 600 mg oral tablet See Instructions, TAKE ONE TABLET BY MOUTH ONCE DAILY, # 90 tabs, 1 Refill(s), eRx: [facility], TAKE ONE TABLET BY MOUTH ONCE DAILY Start Date: 08/22/15 Status: Orderedlevothyroxine 150 mcg (0.15 mg) oral tablet 150 mcg 1 tabs, Oral, Daily, # 90 tabs, 1 Refill(s), Pharmacy: [place] [id number], 1 tabs Oral Daily Start Date: 07/06/15 Status: Orderedlisinopril-hydrochlorothiazide 20 mg-25 mg oral tablet See Instructions, TAKE ONE-HALF TABLET BY MOUTH ONCE DAILY, # 45 tabs, 1 Refill( s), eRx: [facility], TAKE ONE-HALF TABLET BY MOUTH ONCE DAILY Start Date: 08/22/15 Status: OrderedLORazepam 1 mg oral tablet 0.5-1 tabs, Oral, q8hr, as needed for anxiety, whit wilson [id number], # 90 tabs, 0 Refill(s) Start Date: 08/22/15 Status: OrderedMetoprolol Succinate ER 50 mg oral tablet, extended release See Instructions, TAKE ONE TABLET BY MOUTH ONCE DAILY, # 90 tabs, 1 Refill(s), eRx: [facility], TAKE ONE TABLET BY MOUTH ONCE DAILY Start Date: 08/22/15 Status: OrderedNasonex 50 mcg/inh nasal spray 1 sprays, Nasal, BID, 0 Refill(s) Start Date: 10/27/13 Status: Orderedpravastatin 40 mg oral tablet See Instructions, TAKE ONE TABLET BY MOUTH ONCE DAILY, # 90 tabs, 1 Refill(s), [facility], TAKE ONE TABLET BY MOUTH ONCE DAILY Start Date: 08/22/15 Status: OrderedRutin oral tablet 1 tabs, Oral, BID, 50 MG, 0 Refill(s) Start Date: 10/28/13 Status: OrderedViagra 100 mg oral tablet 100 mg 1 tabs, Oral, Daily, 1 hour before sexual activity, # 10 tabs, 3 Refill(s ), Pharmacy: [facility], 1 tabs Oral Daily,Instr:1 hour [...] Extracted from: Title: Ambulatory Patient Education Author: Carlos Eduardo Arellano RN Date: 10/27/15 Geriatrics Fall Prevention and Home Safety Falls cause injuries and can affect all age groups. It is possible to use preventive measures to significantly decrease the likelihood of falls. There are many simple measures that can make your home safer and prevent falls. OUTDOORS Repair cracks and edges of walkways and driveways. Remove high doorway thresholds. Trim shrubbery on the main path into your home. Have good outside lighting. Clear walkways of tools, rocks, debris, and clutter. Check that handrails are not broken and are securely fastened. Both sides of steps should have handrails. Have leaves, snow, and ice cleared regularly. Use sand or salt on walkways during winter months. In the garage, clean up grease or oil spills. BATHROOM Install night lights. Install grab bars by the toilet and in the tub and shower. Use non-skid mats or decals in the tub or shower. Place a plastic non-slip stool in the shower to sit on, if needed. Keep floors dry and clean up all water on the floor immediately. Remove soap buildup in the tub or shower on a regular basis. Secure bath mats with non-slip, double-sided rug tape. Remove throw rugs and tripping hazards from the floors. BEDROOMS Install night lights. Make sure a bedside light is easy to reach. Do not use oversized bedding. Keep a telephone by your bedside. Have a firm chair with side arms to use for getting dressed. Remove throw rugs and tripping hazards from the floor. KITCHEN Keep handles on pots and pans turned toward the center of the stove. Use back burners when possible. Clean up spills quickly and allow time for drying. Avoid walking on wet floors. Avoid hot utensils and knives. Position shelves so they are not too high or low. Place commonly used objects within easy reach. If necessary, use a sturdy step stool with a grab bar when reaching. Keep electrical cables out of the way. Do not use floor ukrainian or wax that makes floors slippery. If you must use wax, use non-skid floor wax. Remove throw rugs and tripping hazards from the floor. STAIRWAYS Never leave objects on stairs. Place handrails on both sides of stairways and use them. Fix any loose handrails. Make sure handrails on both sides of the stairways are as long as the stairs. Check carpeting to make sure it is firmly attached along stairs. Make repairs to worn or loose carpet promptly. Avoid placing throw rugs at the top or bottom of stairways, or properly secure the rug with carpet tape to prevent slippage. Get rid of throw rugs, if possible. Have an product transfer pumper put in a light switch at the top and bottom of the stairs. OTHER FALL PREVENTION TIPS Wear low-heel or rubber-soled shoes that are supportive and fit well. Wear closed-toe shoes. When using a stepladder, make sure it is fully opened and both spreaders are firmly locked. Do not climb a closed stepladder. Add color or contrast paint or tape to grab bars and handrails in your home. Place contrasting color strips on first and last steps. Learn and use mobility aids as needed. Turn on lights to avoid dark areas. Immediately replace light bulbs that burn out. Get light switches that glow. Arrange furniture to create clear pathways. Keep furniture in the same place. Firmly attach carpet with non-skid or double-sided tape. Eliminate uneven floor surfaces. Select a carpet pattern that does not visually hide the edge of steps. Be aware of all pets. OTHER HOME SAFETY TIPS Set the water temperature for 120F (48.8C). Keep emergency numbers on or near the telephone. Keep smoke detectors on every level of the home and near sleeping areas. This information is not intended to replace advice given to you by your health care provider. Make sure you discuss any questions you have with your health care provider. Document Released: 02/15/2003 Document Revised: 03/18/2015 Document Reviewed: 05/16/2012 ExitCare Patient Information 2016 [employer], [facility]. No follow up information was provided.
--- OUTSIDE RECORDS SUMMARY | 2017-04-13 16:07 | External Medical Summary | Referral Summary ---
:1940 Author [facility] Address [address] [place] [address] [place] [phone] Care Team Providers Name Role Phone Juan Francisco Doran Primary Care Physician Encounter VC Date(s): 09/06/15 - 09/06/15 [facility] [place] [phone] [place] Discharge Diagnosis: Numbness in both hands Discharge Disposition: 01-Home or Self Care Attending Physician: Juan Francisco Doran MD Admitting Physician: Juan Francisco Doran MD Vital Signs Most recent to oldest [Reference Range]: 1 Temperature Tympanic [36.6-38.1 degC] 36.0 degC *LOW* (09/06/15 9:52 AM) Peripheral Pulse Rate [60-100 bpm] 84 bpm (09/06/15 9:52 AM) Respiratory Rate [14-20 br/min] 16 br/min (09/06/15 9:52 AM) Blood Pressure [90-140/60-90 mmHg] 150/82 mmHg *HI* (09/06/15 9:52 AM) Problem List Condition Effective Dates Status [...] BID, # 180 Each, 0 Refill(s), Pharmacy: [facility] Start Date: 07/04/15 Status: OrderedAllegra [...] DAILY, # 1 Each, 2 Refill(s), Pharmacy: [place] [id number] Start Date: 05/06/15 Status: Orderedgemfibrozil 600 mg oral tablet See Instructions, TAKE ONE TABLET BY MOUTH ONCE DAILY, # 90 tabs, 1 Refill(s), eRx: [place] [facility] [id number], TAKE ONE TABLET BY MOUTH ONCE DAILY Start Date: 08/22/15 Status: Orderedlevothyroxine 150 mcg (0.15 mg) oral tablet 150 mcg 1 tabs, Oral, Daily, # 90 tabs, 1 Refill(s), Pharmacy: [facility], 1 tabs Oral Daily Start Date: 07/06/15 Status: Orderedlisinopril-hydrochlorothiazide 20 mg-25 mg oral tablet See Instructions, TAKE ONE-HALF TABLET BY MOUTH ONCE DAILY, # 45 tabs, 1 Refill( s), eRx: [place] [id number], TAKE ONE-HALF TABLET BY MOUTH ONCE DAILY Start Date: 08/22/15 Status: OrderedLORazepam 1 mg oral tablet 0.5-1 tabs, Oral, q8hr, as needed for anxiety, whit wilson [id number], # 90 tabs, 0 Refill(s) Start Date: 08/22/15 Status: OrderedMetoprolol Succinate ER 50 mg oral tablet, extended release See Instructions, TAKE ONE TABLET BY MOUTH ONCE DAILY, # 90 tabs, 1 Refill(s), eRx: [facility], TAKE ONE TABLET BY MOUTH ONCE DAILY Start Date: 08/22/15 Status: OrderedNasonex 50 mcg/inh nasal spray 1 sprays, Nasal, BID, 0 Refill(s) Start Date: 10/27/13 Status: Orderedpravastatin 40 mg oral tablet See Instructions, TAKE ONE TABLET BY MOUTH ONCE DAILY, # 90 tabs, 1 Refill(s), eRx: [facility], TAKE ONE TABLET BY MOUTH [...] Note Author: Juan Francisco Doran MD Date: 09/06/15 Assessment/Plan 1.Numbness in both hands I've recommended bilateral nerve conduction studies of both upper extremities. I think this is likely carpal tunnel. We' ll see what the studies show and make further recommendations from there. Ordered: Neuro Electromyography Office Visit Level 3 Est [address]
[2017-04-13] MEDS ORDERED: ALBUTEROL/IPRATROPIUM 2.5mg-0.5mg/3ml NEB AEROSOL ONE (17:13)
[2017-04-13] MEDS ORDERED: METHYLPREDNISOLONE SOD SUCC 125mg/2ml INJECTION IVP ONE (17:32)
[2017-04-13] MEDS ORDERED: CEFTRIAXONE (ER USE ONLY) 1 GM in NS 100 ML IV ONE (17:32)
[2017-04-13] MEDS: SALINE FLUSH 10ml SYRINGE IVF PRN ×4 (18:02→21:49)
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
[2017-04-13] MEDS ORDERED: ONDANSETRON 4 MG/2 ML INJECTION IVP PRN (19:36)
--- NOTE | 2017-04-13 20:20 | History & Physical Report ---
History of Present Illness Date: 04/14/17 Chief complaint: confusion, SOA, weakness, fever, chills HPI: 76y/o male pt with of COPD not requiring oxygen therapy, HTN, hypothyroidism presented to the ED for confusion, weakness and resp failure. He met criteria for severe sepsis. He was given IV fluids in the emergency room along with Rocephin 1 g once. Blood cultures were drawn. Chest x-ray shows possible right hilar infiltrate. His oxygen saturation on room air on presentation to the emergency room with 80%. Even on 6 L he only went up to 85%. Subsequently placed on BiPAP with improved saturations. His lactate was elevated at 2.4. Pro- calcitonin was normal. ABG showed a pH of 7.31 with a PCO2 57 and a PO2 of 176 on 70% oxygen with the BiPAP. AST and ALT were minimally elevated. Anion gap was 16. Electrolytes were relatively good with the exception of an elevated CO2 at 30 ,slighly elevated creatinine of 1.5 and hyperglycemia (pt is not known diabetic). White blood count was 24,000. There is 84% neutrophils. The remainder of the CBC is unremarkable. At time of presentation to the emergency room. Respiration rate of 40-45. He had a temperature of 100.5. He was tachycardic at 111 bpm. Initially blood pressure was 115/77 but by the time I saw the emergency room it was 147/74. Influenza screen was negative. When seen by me in the emergency room he was on his CPAP. He was not answering questions or following commands but he did just received some Ativan. His history is obtained from the emergency room notes as well as a lady friend and his niece who accompanying him. Apparently the patient has been complaining of progressive weakness for months and has seen his primary care physician Dr. Doran, he was reassured it was none of his medications. This has not increased, it's been about the same throughout the last month or so. Per his friend, last night however the patient developed shivering and was cold, unable to get warm. He has had cough and nasal congestion. Friend is unaware if he's had any sputum production. She reports he's always short of breath but that seem to be worse today. This morning he presented to her job and was quite confused. She set him back home and had another lady friend check on him later in the afternoon. When she saw him he was quite confused and very weak. He continued to complain of shaking chills and unable to get warm. She decided to bring him to the emergency room. As far as the first friend is aware, he has not complained of any headache, lightheadedness or dizziness. He has not complained of any chest discomfort, pressure or tightness. He's not complained of any palpitations. He has not complained of nausea or vomiting. She reports he has diarrhea on an off and this is chronic. She states his appetite hasn't been great but he ate pizza last night. She reports that he does not sleep well. He does fall asleep easily during the day. She does also reports that he has had increasing lower extremity edema last couple of days and this is unusual for him to have. BNP however is very low at 78. ECG does not show acute abnormalities. Troponin neg. The patient is a DNR. Review of Systems ROS unobtainable: due to mental status (obtained from what can relay) Review of systems: 12 point review of systems is negative except as noted in the HPI. Past Medical History COPD not requiring home oxygen hypothyroidism on supplements polio as a child Surgical History: Right carpal tunnel release. right shoulder surgery Family History: Mom in her 90s with heart problems Dad 60s but had lots of complication secondary to being struck by lightning twice Family History Updates: Dad with an aneurysm. Mom of [place] - Social History Smoking status: Former smoker (quick years ago) Substance use type: does not use Alcohol intake: former Housing: house Household members: spouse Current occupational status: retired Current residence: Apartment/Private Home Social history: Lives with spouse. Walks without assistance. Medications Home Medications Medication Instructions Recorded Confirmed Type Fluticasone Nasal [place] [Flonase] 2 spray EA NOSTRIL BID #0 10/18/15 04/13/17 History LORazepam [Lorazepam] 0.5 - 1 mg PO Q8H PRN #0 10/18/15 04/13/17 History Levothyroxine Sodium 150 mcg PO DAILY #0 10/18/15 04/13/17 History Acetaminophen [Acetaminophen Extra 500 mg PO Q4H PRN 04/13/17 04/13/17 History Strength] Ascorbate Calcium [Vitamin C] 500 mg PO DAILY 04/13/17 04/13/17 History Aspirin [Aspirin EC] 81 mg PO DAILY 04/13/17 04/13/17 History Fluticasone/Salmeterol 250/50 1 puff INH BID 04/13/17 04/13/17 History [Advair 250-50 Diskus] Gemfibrozil [Lopid] 600 mg PO DAILY 04/13/17 04/13/17 History Lisinopril/Hctz 20 [Prinzide 0.5 tab PO DAILY 04/13/17 04/13/17 History 20] Metoprolol Succinate [Toprol Xl] 50 mg PO DAILY 04/13/17 04/13/17 History Pravastatin [Pravachol] 40 mg PO HS 04/13/17 04/13/17 History Allergies Allergy/AdvReac Type Severity Reaction Status Date / Time codeine Allergy Unknown Verified 04/13/17 16:05 etodolac Allergy Unknown Verified 04/13/17 16:05 Influenza Virus Vaccines Allergy Unknown Verified 04/13/17 16:06 Exam Vital Signs: Temperature 100.5 F H 04/13/17 15:45 Pulse Rate 111 H 04/13/17 18:59 Respiratory Rate 32 H 04/13/17 18:59 Blood Pressure 147/74 H 04/13/17 18:59 Pulse Oximetry 96 04/13/17 18:59 Comments: Gen: Pt is not responding to me, he did just receive ativan, on BIPAP Skin: diaphoretic HEENT: NC/AT PERRL, EOMI. Sclera, lids and conjunctiva wnl. dryMM, OP clear. Neck: supple. No JVD. Carotids 2+ , difficult to hear adventitious sounds due to BiPAP Lungs: Diminished, coarse, Wheezes CV: regular rate and rhythm, No murmur heard above resp noise Trace to 1+ edema. Palpable pedal pulses. Abd: SLightly firm to palp. +BS. ?distended MS: Moves all ext. unable to test strength Neuro: No able to test Results - Labs CBC & Chem 7: 04/14/17 04:04 04/14/17 04:04 Assessment and Plan Assessment and Plan: Assessment and Plan: 1. Severe sepsis -blood cx drawn, urine pending -IVF -[place]arte for accurate I & O, UA -Antibiotics 2. Hypoxic hypercapneic resp failure -CPAP, oxygen, wean as able. -Resp therapy -Antibiotics -IV steroids -Keep NPO at present 3. Poss PNA -Antibiotics -Resp therapy -Repeat CXR in am 4. COPD -acute exacerbation -IV steriods 5. Hyperglycemia -Check accu checks, get A1C -SSI 6. HTN -IV lopressor prn as he is not able to take po at present -hold his home Toprol 50mg daily -Hold his home Lisinopril/HCTZ 20/25mg daily 7. HLP -hold his home pravastatin 40mg for now 8. Hypothyroidism -Hold his levothyroxine 150mcg daily for now 9. ?renal insufficiency, no h/o CKD -IVF and repeat lab in am. 10. Leukocytosis -due to sepsis, follow lab 11. Prophylaxis -SQ heparin, PPI - Physician Narrative Narrative: Date: 04/13/17 Time: 2001 Hospital Course Summary Disclaimer: The visit summary below is not to be considered part of the above Progress Note.
[2017-04-13] MEDS: ALBUTEROL/IPRATROPIUM 2.5mg-0.5mg/3ml NEB AEROSOL SCH ×2 (20:29→23:55)
[2017-04-13] MEDS: BUDESONIDE INH.SOLN 0.5mg/2ml NEB AEROSOL SCH (20:30)
[2017-04-13] MEDS ORDERED: DEXTROSE 50% SYRINGE 50ml (1 AMP) IVP PRN (20:36)
[2017-04-13 20:41] VITALS: BMI 35.7
[2017-04-13] MEDS ORDERED: NS FLUSH BAG 500ml IV PRN (21:21)
[2017-04-13] MEDS: AZITHROMYCIN IV 500 MG in NS 250ml 250 ML IV SCH (21:49)
[2017-04-13] MEDS: FLUTICASONE NASAL SPRAY 50mcg EA NOSTRIL SCH (21:50)
[2017-04-13] MEDS: PANTOPRAZOLE 40 MG INJECTION IVP SCH (21:50)
[2017-04-13] MEDS: INSULIN ASPART 100unit/ml INJECTION SQ PRN (21:51)
[2017-04-13] MEDS: HEPARIN 5,000unit/ml 1ml INJECTION SUB-Q SCH (21:51)
[2017-04-13] MEDS ORDERED: LR 1,000 ML IV SCH (23:15)
[2017-04-13] MEDS ORDERED: LR 500 ML IV SCH (23:30)
[2017-04-14] MEDS ORDERED: LR 500 ML IV SCH (03:15)
[2017-04-14] MEDS: ALBUTEROL/IPRATROPIUM 2.5mg-0.5mg/3ml NEB AEROSOL SCH ×6 (03:15→23:50)
[2017-04-14] MEDS: HEPARIN 5,000unit/ml 1ml INJECTION SUB-Q SCH (04:05)
[2017-04-14] MEDS: METHYLPREDNISOLONE SOD SUCC 125mg/2ml INJECTION IVP SCH ×2 (04:06→08:18)
[2017-04-14] MEDS: MAGNESIUM SULFATE 1gm PREMIX 1 GM/100 ML BAG IV SCH ×6 (05:31→15:21)
[2017-04-14] MEDS: NS 1,000 ML IV SCH ×3 (06:02→20:43)
[2017-04-14] MEDS: INSULIN ASPART 100unit/ml INJECTION SQ PRN ×4 (06:02→22:16)
[2017-04-14] MEDS: BUDESONIDE INH.SOLN 0.5mg/2ml NEB AEROSOL SCH ×2 (06:35→19:30)
--- NOTE | 2017-04-14 08:05 | Progress Note ---
- Date 04/14/17 Subjective: Mr. Ballard was admitted last night after being brought in by a friend found him to be confused and extremely weak. He was unable to contribute any of history last evening as he was sedated and on BiPAP. This morning he is feeling "100% better". He is sitting beside the bed on oxygen by nasal cannula. He is able to speak in complete sentences without dyspnea. He denies chills. I asked him to tell me about the history prior to his arrival he reports he's been having increase shortness of breath for about a week with thick colored and sometimes blood tinged sputum production. He continues to deny any type of chest discomfort or palpitations. He does report fatigue that he states he's had for several months. He states that he is retired now. He was previously very active farming and ranching. He states now do. He gets up around 4 AM to eat breakfast and then goes back to bed. He gets up around 10 to go get his mail. The rest of the day really very little to do. 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 His chest x-ray does show abnormalities in the apices of the lung. He has had eye surgery on his right. He has had his tonsils out. He has had both shoulders operated on. He has some chronic back pain. He does have a wound on the lateral side of his right lower ext. There appears to be mild surrounding erythema but no induration or drainage. Will have wound care eval. Today, he is feeling better. Still has a cough and is still requiring oxygen. His creatinine did bump today. His WBC is stable but no better. His band are up. His has had poor urine output. He denies lightheadedness, dizziness, chest pain, palp. No N/V. He had a good BM early this am. 1330: Check back on pt this afternoon. He is up eating lunch. Lots of visitors. He continues to feel better with much less SOA. On 4 liters of oxygen. He is less tachy in the upper 90s to low 100s. BP increasing and now at 144 systolic. Will start back on BBL. 03/12 Bl Cx positive for Gm + cocci in clusters. ?source. Identification and sensitivity pending. Will add coverage for MRSA until bacteria identified since his WBC did not come down. Objective Vital signs: Temperature 98.3 F 04/14/17 04:00 Pulse Rate 93 04/14/17 07:00 Respiratory Rate 31 H 04/14/17 07:00 Blood Pressure 97/57 04/14/17 06:30 Pulse Oximetry 95 04/14/17 07:00 Height/Weight/BMI: Height 1.68 m Weight 100.5 kg Body Mass Index 35.7 Comments: Gen: alert and oriented. NAD. Conversive. Skin: warm and dry HEENT: NC/AT PERRL, EOMI. Sclera, lids and conjunctiva wnl. MMM, OP clear. Neck: supple. No JVD. Carotids 2+ without bruits Lungs: Diminished. Few fine crackles, No wheezes CV: regular rate and rhythm, No murmur, rub or gallop Trace edema. Good pedal pulses. Abd: Soft, NT/ND. +BS. MS: [place], good strength at rest. Neuro: no focal deficit Results - Labs CBC & Chem 7: 04/14/17 04:04 04/14/17 12:06 Microbiology Results: Microbiology 04/14/17 00:24 Sputum, Suctioned Gram Stain - Final 04/14/17 00:24 Sputum, Suctioned Sputum Culture - Final 04/13/17 20:09 Urine, Voided (Cc/notcc) Urine Culture - Preliminary Culture Initiated - Results Pending - ABG Interpretation ABG results: 04/14/17 05:44 ABG pH 7.370 ABG pCO2 41 ABG pO2 77 L ABG HCO3 24 ABG Total CO2 25.0 ABG O2 Saturation 95.0 ABG Base Excess -1.5 Assessment and Plan Assessment and Plan: Assessment and Plan: 1. Severe sepsis -blood cx drawn, urine pending -IVF -[place]arte for accurate I & O, UA -Antibiotics -Lactate up to 5.3 this am. repeat at noon trending down at 3.9, repeat in am. 2. 1/2 Bl cultures with Gm+cocci in clusters -Start vanco until bacteria identified 3. Hypoxic hypercapnic resp failure -CPAP, oxygen, wean as able. -Resp therapy -Antibiotics -IV steroids -Pt able to come off BiPAP to SD, continue to follow -ABG better this am -Dr. Tony consulted 4. Poss PNA -Antibiotics -Resp therapy -Repeat CXR in am -Sputum cx pending good sample 5. COPD -acute exacerbation -IV steroids 6. Hyperglycemia -A1C is 7.7, pt diabetic -Check accu checks, -SSI 7. HTN -BP higher this afternoon, will start low dose lopressor -hold his home Toprol 50mg daily -Hold his home Lisinopril/HCTZ 20/25mg daily 8. Troponinemia -Likely type 2 NSTEMI due to severe sepsis -Consult cardiology -Trending down -Multiple risk factors for CAD: DM (new dx), HLP, HTN, age, prior smoker 9. HLP -Resume his home pravastatin 40mg 10. Hypothyroidism -Resume his levothyroxine 150mcg daily 11. [place], no h/o CKD -IVF -Creatinine better this afternoon, Will repeat in am. 12. Leukocytosis -due to sepsis, follow lab 13. Prophylaxis -SQ heparin, PPI - Physician Narrative Narrative: Date: 04/14/17 Time: [facility]7 Hospital Course Summary Disclaimer: The visit summary below is not to be considered part of the above Progress Note.
[2017-04-14] MEDS: PANTOPRAZOLE 40 MG INJECTION IVP SCH (08:18)
[2017-04-14] MEDS: HEPARIN SUB-Q 5,000units/0.5ml INJECTION SQ SCH ×2 (08:18→17:06)
[2017-04-14] MEDS: ASPIRIN *EC* 81 MG TABLET PO SCH (08:18)
--- NOTE | 2017-04-14 08:59 | XRay Report ---
Indication: dyspnea PROCEDURE: XR chest 1V: Encounter: Initial Comparison: None FINDINGS: The lungs are mildly hypoinflated, but clear. There is no abnormal airspace opacity, pleural effusion or pneumothorax identified. The heart size, pulmonary vasculature and mediastinum are within normal limits. No significant skeletal abnormality is seen. IMPRESSION: Hypoinflation without acute cardiopulmonary abnormality. .
[2017-04-14] MEDS: CEFTRIAXONE 1 G in NS 50 ML IV SCH (09:48)
[2017-04-14] MEDS: FLUTICASONE NASAL SPRAY 50mcg EA NOSTRIL SCH ×2 (09:49→20:44)
--- NOTE | 2017-04-14 10:48 | XRay Report ---
Indication: resp failure PROCEDURE: XR chest 1V: Encounter: Initial Comparison: April 13, 2017 Findings: Lungs are hypoinflated. Developing pulmonary edema with vascular redistribution. Trace effusions. No pneumothorax. Heart size and mediastinal contours are stable. Impression: Developing mild to moderate pulmonary edema. .
[2017-04-14] MEDS ORDERED: FUROSEMIDE 20 MG/2 ML INJECTION IVP ONE (11:07)
[2017-04-14] MEDS ORDERED: LORazepam 1 MG TABLET PO PRN (13:26)
--- NOTE | 2017-04-14 14:05 | Pulmonology Consult Note ---
History of Present Illness Consult date: 04/14/17 Reason for consult: COPD Chief complaint: altered mental status and shortness of breath History of present illness: HPI: This is a 76 year old male in CCU at [facility] for acute hypercapnic, hypoxemic respiratory failure, COPD with exacerbation and severe sepsis. He states he had PFT's a little over a year ago here at [facility] but we cannot find those. He was placed on Advair BID and feels that this helps. He does not use O2 at home. States he smoked but quit in the . He doesn't remember much about what happened yesterday. States he did not take any new medications. Admits to being sick with fever, cough, sneeze and sore throat for a week prior to admission. He is doing much better today, no having any confusion. states his back hurts when he lays down which is a chronic problem. coughing up a little phlegm, but overall is improved. States his breathing feels normal now. 76y/o male pt with of COPD not requiring oxygen therapy, HTN, hypothyroidism presented to the ED for confusion, weakness and resp failure. He met criteria for severe sepsis. He was given IV fluids in the emergency room along with Rocephin 1 g once. Blood cultures were drawn. Chest x-ray shows possible right hilar infiltrate. His oxygen saturation on room air on presentation to the emergency room with 80%. Even on 6 L he only went up to 85%. Subsequently placed on BiPAP with improved saturations. His lactate was elevated at 2.4. Pro- calcitonin was normal. ABG showed a pH of 7.31 with a PCO2 57 and a PO2 of 176 on 70% oxygen with the BiPAP. AST and ALT were minimally elevated. Anion gap was 16. Electrolytes were relatively good with the exception of an elevated CO2 at 30 ,slighly elevated creatinine of 1.5 and hyperglycemia (pt is not known diabetic). White blood count was 24,000. There is 84% neutrophils. The remainder of the CBC is unremarkable. At time of presentation to the emergency room. Respiration rate of 40-45. He had a temperature of 100.5. He was tachycardic at 111 bpm. Initially blood pressure was 115/77 but by the time I saw the emergency room it was 147/74. Influenza screen was negative. When seen by me in the emergency room he was on his CPAP. He was not answering questions or following commands but he did just received some Ativan. His history is obtained from the emergency room notes as well as a lady friend and his niece who accompanying him. Apparently the patient has been complaining of progressive weakness for months and has seen his primary care physician Dr. Doran, he was reassured it was none of his medications. This has not increased, it's been about the same throughout the last month or so. Per his friend, last night however the patient developed shivering and was cold, unable to get warm. He has had cough and nasal congestion. Friend is unaware if he's had any sputum production. She reports he's always short of breath but that seem to be worse today. This morning he presented to her job and was quite confused. She set him back home and had another lady friend check on him later in the afternoon. When she saw him he was quite confused and very weak. He continued to complain of shaking chills and unable to get warm. She decided to bring him to the emergency room. As far as the first friend is aware, he has not complained of any headache, lightheadedness or dizziness. He has not complained of any chest discomfort, pressure or tightness. He's not complained of any palpitations. He has not complained of nausea or vomiting. She reports he has diarrhea on an off and this is chronic. She states his appetite hasn't been great but he ate pizza last night. She reports that he does not sleep well. He does fall asleep easily during the day. She does also reports that he has had increasing lower extremity edema last couple of days and this is unusual for him to have. BNP however is very low at 78. ECG does not show acute abnormalities. Troponin neg. The patient is a DNR. Past Medical History COPD not requiring home oxygen hypothyroidism on supplements polio as a child Surgical History: Right carpal tunnel release. right shoulder surgery Family History: Mom in her 90s with heart problems Dad 60s but had lots of complication secondary to being struck by lightning twice Family History Updates: Dad with an aneurysm. Mom of [place] - Social History Smoking status: Former smoker (quick years ago) Substance use type: does not use Alcohol intake: former Housing: house Household members: spouse Current occupational status: retired Current residence: Apartment/Private Home Social history: Lives with spouse. Walks without assistance. Review of Systems All systems: reviewed and no additional remarkable complaints except as stated - Constitutional Constitutional: Present: as per HPI PFSH Patient Stated Medical History Cataracts Yes Hypertension Yes Chronic Obstructive Pulmonary Yes Disease (COPD) Surgical History: Right carpal tunnel release. right shoulder surgery - Social History Smoking status: Former smoker (quick years ago) Current residence: Apartment/Private Home Medications Home Medications Medication Instructions Recorded Confirmed Type Fluticasone Nasal [place] [Flonase] 2 spray EA NOSTRIL BID #0 10/18/15 04/13/17 History LORazepam [Lorazepam] 0.5 - 1 mg PO Q8H PRN #0 10/18/15 04/13/17 History Levothyroxine Sodium 150 mcg PO DAILY #0 10/18/15 04/13/17 History Acetaminophen [Acetaminophen Extra 500 mg PO Q4H PRN 04/13/17 04/13/17 History Strength] Ascorbate Calcium [Vitamin C] 500 mg PO DAILY 04/13/17 04/13/17 History Aspirin [Aspirin EC] 81 mg PO DAILY 04/13/17 04/13/17 History Fluticasone/Salmeterol 250/50 1 puff INH BID 04/13/17 04/13/17 History [Advair 250-50 Diskus] Gemfibrozil [Lopid] 600 mg PO DAILY 04/13/17 04/13/17 History Lisinopril/Hctz 20/25 [Prinzide 0.5 tab PO DAILY 04/13/17 04/13/17 History 20/25] Metoprolol Succinate [Toprol Xl] 50 mg PO DAILY 04/13/17 04/13/17 History Pravastatin [Pravachol] 40 mg PO HS 04/13/17 04/13/17 History Allergies Allergy/AdvReac Type Severity Reaction Status Date / Time codeine Allergy Unknown Verified 04/13/17 16:05 etodolac Allergy Unknown Verified 04/13/17 16:05 Influenza Virus Vaccines Allergy Unknown Verified 04/13/17 16:06 Exam Vital signs: Temperature 97.8 F 04/14/17 12:00 Pulse Rate 87 04/14/17 11:01 Respiratory Rate 20 04/14/17 11:55 Blood Pressure 116/59 04/14/17 11:01 Pulse Oximetry 98 04/14/17 11:55 - Constitutional no acute distress, obese - Routine HEENT Exam Head: Present: normocephalic, atraumatic Eye: Absent: conjunctival icterus Nose: moist mucous membranes - Routine Neck Exam Present: supple, full ROM - Routine Respiratory Exam Present: decreased breath sounds. Absent: rales, rhonchi, wheezes - Routine Cardiovascular Exam Present: RRR - Routine Abdominal Exam Present: soft. Absent: guarding - Routine Extremities Exam Present: edema. Absent: cyanosis, clubbing - Routine Skin Exam Present: intact. Absent: rash - Routine Neurological Exam Present: alert, oriented X3. Absent: motor deficit Results - Laboratory Findings CBC and BMP: 04/14/17 04:04 04/14/17 12:06 ABG ABG pH 7.370 (7.350-7.450) 04/14/17 05:44 ABG pCO2 41 MMHG (34-45) 04/14/17 05:44 ABG pO2 77 MMHG (80-100) L 04/14/17 05:44 ABG O2 Saturation 95.0 % (95.0-98.0) 04/14/17 05:44 PT/INR, D-dimer INR 1.41 (0.99-1.21) H 04/13/17 16:26 Abnormal lab findings: Abnormal Labs 04/13/17 04/13/17 04/14/17 20:09 22:45 00:25 WBC Neutrophils % (Manual) Band Neutrophils % Lymphocytes % (Manual) Neutrophils # (Manual) Lymphocytes # (Manual) Monocytes # (Manual) ABG pO2 Anion Gap BUN Creatinine Glucose Hemoglobin A1c Calculated Osmolality Magnesium AST ALT Troponin I B-Natriuretic Peptide Plasma Lactate 2.9 H 3.6 H Urine Protein 2+ A Urine Occult Blood 3+ A Urine RBC 5-10 H Urine Bacteria 2+ H 04/14/17 04/14/17 04/14/17 04:01 04:04 04:04 WBC 24.8 H Neutrophils % (Manual) 82.0 H Band Neutrophils % 9.0 H Lymphocytes % (Manual) 2.0 L Neutrophils # (Manual) 20.3 H Lymphocytes # (Manual) 0.5 L Monocytes # (Manual) 1.7 H ABG pO2 Anion Gap 19 H BUN 33.0 H D Creatinine 2.3 H D Glucose 275 H Hemoglobin A1c 7.7 H Calculated Osmolality 292 H Magnesium 1.5 L AST 102 H ALT 73 H Troponin I 0.289 H D B-Natriuretic Peptide 443 H Plasma Lactate 5.2 H* Urine Protein Urine Occult Blood Urine RBC Urine Bacteria 04/14/17 04/14/17 04/14/17 05:44 12:05 12:06 WBC Neutrophils % (Manual) Band Neutrophils % Lymphocytes % (Manual) Neutrophils # (Manual) Lymphocytes # (Manual) Monocytes # (Manual) ABG pO2 77 L Anion Gap BUN Creatinine Glucose Hemoglobin A1c Calculated Osmolality Magnesium AST ALT Troponin I 0.158 H B-Natriuretic Peptide Plasma Lactate 3.9 H Urine Protein Urine Occult Blood Urine RBC Urine Bacteria 04/14/17 12:06 WBC Neutrophils % (Manual) Band Neutrophils % Lymphocytes % (Manual) Neutrophils # (Manual) Lymphocytes # (Manual) Monocytes # (Manual) ABG pO2 Anion Gap BUN 38.0 H Creatinine 1.8 H D Glucose 392 H Hemoglobin A1c Calculated Osmolality 291 H Magnesium AST ALT Troponin I B-Natriuretic Peptide Plasma Lactate Urine Protein Urine Occult Blood Urine RBC Urine Bacteria - Diagnostic Findings Chest x-ray: report reviewed, image reviewed Assessment and Plan (1) Acute respiratory failure with hypoxia and hypercapnia Status: Acute Assessment and plan: He had an episode of hypercapnic failure, PCO2 57. Now improved and feeling better on nasal cannula O2. Wean as tolerated. BIPAP as needed. Current Visit: Yes (2) COPD exacerbation Status: Acute Assessment and plan: Continue neb treatments with albuterol/ipratropium O2 to keep sat >90% Check old PFT if possible. Plan to resume Advair on dismissal. Wean solumedrol. Etiology of exacerbation likely viral URTI Current Visit: Yes (3) Severe sepsis Status: Acute Assessment and plan: Associated with fever, altered mental status, respiratory failure, renal failure. All markers are improving now. Possible pneumonia vs Viremia Continue empiric therapies with IV Rocephin. he is improving, though his WBC count remains elevated. I will add Azithromycin for atypical coverage as well. Current Visit: Yes - Time Spent With Patient Total time spent is greater than 50% in coordination of care (as documented) at patient's floor/unit and/or counseling patient: 25 - 35 minutes
[2017-04-14] MEDS ORDERED: VANCOMYCIN - PHARMACY CONSULT MC ONE (14:42)
[2017-04-14] MEDS: LEVOTHYROXINE 150 MCG TABLET PO SCH (15:17)
[2017-04-14] MEDS: ASCORBIC ACID 500 MG TABLET PO SCH (15:18)
[2017-04-14] MEDS: GEMFIBROZIL 600 MG TABLET PO SCH (15:18)
[2017-04-14] MEDS: METHYLPREDNISOLONE SOD SUCC 40mg/ml INJECTION IVP SCH ×2 (16:25→20:36)
[2017-04-14] MEDS: AZITHROMYCIN IV 500 MG in NS 250ml 250 ML IV SCH (20:25)
[2017-04-14] MEDS: PRAVASTATIN 40 MG TABLET PO SCH (20:38)
[2017-04-14] MEDS ORDERED: MENTHOL COUGH DROPS (RICOLA) MM PRN (23:09)
[2017-04-15] MEDS: NS 1,000 ML IV SCH ×2 (00:19→12:20)
[2017-04-15] MEDS: HEPARIN SUB-Q 5,000units/0.5ml INJECTION SQ SCH ×3 (00:48→18:24)
[2017-04-15] MEDS: METHYLPREDNISOLONE SOD SUCC 40mg/ml INJECTION IVP SCH ×3 (02:49→18:23)
[2017-04-15] MEDS: SALINE FLUSH 10ml SYRINGE IVF PRN (02:49)
[2017-04-15] MEDS: ALBUTEROL/IPRATROPIUM 2.5mg-0.5mg/3ml NEB AEROSOL SCH ×5 (03:10→20:34)
[2017-04-15] MEDS: INSULIN ASPART 100unit/ml INJECTION SQ PRN (05:40)
[2017-04-15] MEDS: LEVOTHYROXINE 150 MCG TABLET PO SCH (05:41)
[2017-04-15] MEDS: BUDESONIDE INH.SOLN 0.5mg/2ml NEB AEROSOL SCH ×2 (06:43→20:34)
[2017-04-15] MEDS: GEMFIBROZIL 600 MG TABLET PO SCH (08:24)
[2017-04-15] MEDS: ASPIRIN *EC* 81 MG TABLET PO SCH (08:25)
[2017-04-15] MEDS: CEFTRIAXONE 1 G in NS 50 ML IV SCH (08:25)
[2017-04-15] MEDS: ASCORBIC ACID 500 MG TABLET PO SCH (08:25)
[2017-04-15] MEDS: PANTOPRAZOLE 40 MG INJECTION IVP SCH (08:26)
--- NOTE | 2017-04-15 09:41 | XRay Report ---
Indication: increased edema PROCEDURE: XR chest 2V: Encounter: Initial Comparison: 04/14/2017 Findings: There is subtle linear changes of atelectasis and/or scarring in both lower lung herrera with overall expiratory technique. No definite pleural effusion. Trachea is midline. No subdiaphragmatic free air. Heart size is normal. Impression: Bibasilar atelectasis and/or scarring with overall expiratory technique. .
[2017-04-15] MEDS ORDERED: INSULIN ASPART 100unit/ml INJECTION SQ PRN (11:40)
--- NOTE | 2017-04-15 11:51 | Progress Note ---
- Date 04/15/17 Subjective: Mr. Ballard reports that his breathing is significantly better than it was on admission and that he has minimal cough or sputum production at this time. He has not been able to provide a sputum sample for culture. He describes preceding thick sinus drainage for 2-3 weeks prior to to developing respiratory symptoms . He had fevers prior to hospitalization. Currently he denies chest pain, palpitations, nausea, or lightheadedness. His appetite is good and he is anxious to start moving around a little bit. Objective Vital signs: Temperature 98.1 F 04/14/17 15:49 Pulse Rate 95 04/15/17 07:01 Respiratory Rate 45 H 04/15/17 07:01 Blood Pressure 175/80 H 04/15/17 07:01 Pulse Oximetry 97 - 3 L 04/15/17 07:01 I/O 2971/[id number] EXAM General-NAD, alert, fluent speech HEENT-conjugate gaze, conjunctiva clear, sclera anicteric, oropharynx clear, neck supple Lungs-respirations nonlabored, good airflow, breath sounds clear Cardiac-regular rhythm, S1-S2 Abd-soft, nontender, obese, bowel sounds present Ext-trace edema Neuro-MAEW Psych-calm, cooperative - Rhythm: Normal Sinus Rhythm Height/Weight/BMI: Height 1.68 m Weight 100.5 kg Body Mass Index 35.7 Results - Labs CBC & Chem 7: 04/15/17 04:24 04/15/17 04:24 Labs: S86 B3 L5 M6 Calcium 8.9, magnesium 2.6, AST 176, ALT 130, bilirubin 0.3 Troponin-peaks 0.289--> 0.158 Lactic acid this morning 3.0-trending down Microbiology Results: 04/15/17 10:56 Peripheral/Iv Start Blood Culture - Preliminary Culture Initiated - Results Pending 04/15/17 10:56 Peripheral/Iv Start Blood Culture - Preliminary Culture Initiated - Results Pending 04/13/17 20:09 Urine, Voided (Cc/notcc) Urine Culture - Preliminary No Growth After 1 Day 04/14/17 00:24 Sputum, Suctioned Gram Stain - > 10 epithelial cells 04/14/17 00:24 Sputum, Suctioned Sputum Culture - not performed due to presence of epithelial cells on Gram stain 1/2 blood cultures drawn 2/3 positive for staph species - ABG Interpretation ABG results: 04/14/17 05:44 ABG pH 7.370 ABG pCO2 41 ABG pO2 77 L ABG HCO3 24 ABG Total CO2 25.0 ABG O2 Saturation 95.0 ABG Base Excess -1.5 - Imaging and Cardiology Chest x-ray Status: image reviewed by me (basilar atelectasis-primarily at the left base; no infiltrate present) Assessment and Plan (1) Acute respiratory failure with hypoxia and hypercapnia Current visit: Yes Status: Acute (2) Severe sepsis Current visit: Yes Status: Acute Assessment and Plan: Impression: Severe sepsis Acute hypoxic/hypercarbic respiratory failure Positive blood culture COPD with acute exacerbation Possible pneumonia Diabetes mellitus, new diagnosis-A1c 7.7 Elevated troponin Acute kidney injury Acute hepatic injury-elevated AST/ALT Leukocytosis Hypertension Hyperlipidemia Hypothyroidism Plan: Persistent leukocytosis however clinically improving. Oxygen titrated down to 3 L, respiratory symptoms improved. One of the initial blood cultures was positive for staph species-suspect contaminant however we'll continue empiric coverage with vancomycin pending further identification. Blood cultures repeated today. Steroids tapered yesterday-may be able to convert to prednisone tomorrow. Appreciate Dr. Tony's assistance. Continue azithromycin/ceftriaxone for pulmonary coverage although viral syndrome more likely based on symptoms prior to hospitalization. Completes azithromycin today. Persistent leukocytosis may be result of high-dose steroids being given prior days; continue to monitor. Acute kidney injury and hepatic injury consistent with hypoxia prior to hospitalization-both improving. Dr. Faria to see regarding elevated troponin; telemetry strips reviewed by myself-consistent sinus rhythm. EKG on admission was unremarkable. Repeat today. Suspect type II [place] due to hypoxia/stress however patient has multiple cardiac risk factors. Persistent hyperglycemia, corrective insulin doses adjusted and Lantus initiated. Will require long-term treatment-education ordered, anticipate starting metformin if renal function stabilizes adequately to do so. Discontinue Uriarte, and transferred to the floor, PT/OT consults. DVT Prophylaxis: SCD's, SQ Heparin GI Prophylaxis: Pepcid Resuscitation Status: Do Not Resuscitate - Physician Narrative Narrative: Date: 04/15/17 Time: 1146 Hospital Course Summary Disclaimer: The visit summary below is not to be considered part of the above Progress Note. Hospital Course: 04/15/17 Persistent leukocytosis however clinically improving. Oxygen titrated down to 3 L, respiratory symptoms improved. One of the initial blood cultures was positive for staph species-suspect contaminant however we'll continue empiric coverage with vancomycin pending further identification. Blood cultures repeated today. Steroids tapered yesterday-may be able to convert to prednisone tomorrow. Appreciate Dr. Tony's assistance. Continue azithromycin/ceftriaxone for pulmonary coverage although viral syndrome more likely based on symptoms prior to hospitalization. Completes azithromycin today. Persistent leukocytosis may be result of high-dose steroids being given prior days; continue to monitor. Acute kidney injury and hepatic injury consistent with hypoxia prior to hospitalization-both improving. Dr. Faria to see regarding elevated troponin; telemetry strips reviewed by myself-consistent sinus rhythm. EKG on admission was unremarkable. Repeat today. Suspect type II [place] due to hypoxia/stress however patient has multiple cardiac risk factors. Persistent hyperglycemia, corrective insulin doses adjusted and Lantus initiated.
[2017-04-15] MEDS ORDERED: PNEUMOCOCCAL VAC ADMIN CHARGE INJ ONE (12:02)
[2017-04-15] MEDS ORDERED: PNEUMOCOCCAL 23 VACCINE 0.5ml INJECTION IM ONE (12:04)
--- NOTE | 2017-04-15 13:47 | Cardiology Consult Note ---
<Corie Anderson - Last Filed: 04/16/17 10:56> History of Present Illness Consult date: 04/14/17 Requesting physician: Della Gerber Chief complaint: elevated troponin History of present illness: Amando is a 76 year old male with COPD not requiring oxygen therapy, HTN, hypothyroidism who presented to the ED for confusion, weakness and respiratory failure. Chest x-ray shows possible right hilar infiltrate. His oxygen saturation on room air on presentation to the ED was 80% so he subsequently was placed on BiPAP with improved saturations. Respiration rate of 40-45. He had a temperature of 100.5. He was tachycardic at 111 bpm. Influenza screen was negative. He reportedly has been having increase shortness of breath for about a week with thick colored and sometimes blood tinged sputum production. He does report fatigue that he states he's had for several months. 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 His chest x-ray does show abnormalities in the apices of the lung. Dr. Faria is consulted for mildly elevated troponin, we appreciate the consult. He is seen in CCU. He denies chest pain, pressure, tightness, palpitations, lightheadedness, dizziness, N/V/D. Review of Systems - Constitutional Constitutional: Present: as per HPI, chills, fatigue, fever(s), weakness - EENMT Eyes: Absent: change in vision Balance: Absent: vertigo Mouth/Throat: Absent: sore throat - Cardiovascular Cardiovascular: Present: dyspnea on exertion. Absent: chest pain, palpitations , syncope, edema, heart murmur Rhythm: Absent: abnormal rhythm Vascular: Absent: pedal edema - Respiratory Respiratory: Present: cough, dyspnea on exertion - Gastrointestinal Gastrointestinal: Absent: abdominal pain, diarrhea, nausea, vomiting - Genitourinary Genitourinary: Absent: dysuria - Integumentary/Breasts Integumentary: Absent: rash - Neurological Neurological: Absent: dizziness - Endocrine Endocrine: Absent: palpitations PFSH Patient Stated Medical History Cataracts Yes Hypertension Yes Chronic Obstructive Pulmonary Yes Disease (COPD) Surgical History: Cataract surgery on his right. Tonsilectomy. Right carpal tunnel release. Both shoulder surgery Family History: Father - with an aneurysm. Mother - of [place] - Social History Smoking status: Former smoker (quick years ago) Substance use type: does not use Alcohol intake frequency: former alcohol drinker Housing: house Current occupational status: retired Current residence: Apartment/Private Home Medications Home Medications Medication Instructions Recorded Confirmed Type Fluticasone Nasal [place] [Flonase] 2 spray EA NOSTRIL BID #0 10/18/15 04/13/17 History LORazepam [Lorazepam] 0.5 - 1 mg PO Q8H PRN #0 10/18/15 04/13/17 History Levothyroxine Sodium 150 mcg PO DAILY #0 10/18/15 04/13/17 History Acetaminophen [Acetaminophen Extra 500 mg PO Q4H PRN 04/13/17 04/13/17 History Strength] Ascorbate Calcium [Vitamin C] 500 mg PO DAILY 04/13/17 04/13/17 History Aspirin [Aspirin EC] 81 mg PO DAILY 04/13/17 04/13/17 History Fluticasone/Salmeterol 250/50 1 puff INH BID 04/13/17 04/13/17 History [Advair 250-50 Diskus] Gemfibrozil [Lopid] 600 mg PO DAILY 04/13/17 04/13/17 History Lisinopril/Hctz 20/25 [Prinzide 0.5 tab PO DAILY 04/13/17 04/13/17 History 20/25] Metoprolol Succinate [Toprol Xl] 50 mg PO DAILY 04/13/17 04/13/17 History Pravastatin [Pravachol] 40 mg PO HS 04/13/17 04/13/17 History Allergies Allergy/AdvReac Type Severity Reaction Status Date / Time codeine Allergy Unknown Verified 04/13/17 16:05 etodolac Allergy Unknown Verified 04/13/17 16:05 Influenza Virus Vaccines Allergy Unknown Verified 04/13/17 16:06 Exam Vital signs: Temperature 98.1 F 04/14/17 15:49 Pulse Rate 95 04/15/17 07:01 Respiratory Rate 20 04/15/17 11:49 Blood Pressure 175/80 H 04/15/17 07:01 Pulse Oximetry 97 04/15/17 11:49 - Constitutional no acute distress, well nourished, cooperative - Routine HEENT Exam Head: Present: normocephalic ENT: Present: mucous membranes moist - Routine Neck Exam Absent: JVD, carotid bruit - Routine Chest/Breast/Axilla Exam Chest wall: Absent: tenderness - Routine Respiratory Exam Present: decreased breath sounds, CTA bilaterally - Routine Cardiovascular Exam Present: RRR, no murmur - Routine Abdominal Exam Present: soft, normoactive bowel sounds - Routine Extremities Exam Present: no edema - Routine Skin Exam Present: intact, dry, warm - Routine Neurological Exam Present: alert, oriented X3 - Routine Psychiatric Exam Present: normal affect, normal thought process Results 04/15/17 04:24 04/15/17 04:24 Cardiac Enzymes 04/15/17 04/15/17 Range/Units 04:24 04:24 AST 176 H D (17-59) U/L Troponin I 0.102 (0-0.12) ng/ml CBC 04/15/17 Range/Units 04:24 WBC 23.8 H (4.5-11.0) T/MM3 RBC 4.81 (4.50-5.90) M/MM3 Hgb 14.2 (13.5-17.5) GM/DL Hct 42.3 (41-53) % Plt Count 165 (130-400) T/MM3 Neut # (Auto) Not performed Lymph # (Auto) Not performed [place] # (Auto) Not performed Eos # (Auto) Not performed Baso # (Auto) Not performed Comprehensive Metabolic Panel 04/15/17 Range/Units 04:24 Sodium 140 (134-144) MEQ/L Potassium 4.1 (3.6-5) MEQ/L Chloride 102 (98-107) MEQ/L Carbon Dioxide 26 (22-30) MEQ/L BUN 38.0 H (9-20) MG/DL Creatinine 1.5 D (0.8-1.5) MG/DL Glucose 296 H (75-110) MG/DL Calcium 8.9 (8.4-10.2) MG/DL AST 176 H D (17-59) U/L ALT 103 H (21-72) U/L Alkaline Phosphatase 66 (38-126) U/L Total Protein 8.2 (6.3-8.2) G/DL Albumin 4.1 (3.5-5.0) G/DL Intake and Output 04/14/17 04/15/17 04/15/17 22:59 06:59 14:59 Intake Total 1397.917 / 1397.917 564.166 / 564.166 776.667 / 776.667 Output Total 1195 / 1195 1045 / 1045 175 / 175 Balance 202.917 / 202.917 -480.834 / -480.834 601.667 / 601.667 Intake: IV 1217.917 / 1217.917 564.166 / 564.166 506.667 / 506.667 Azithromycin IV 500 mg In NS 250.000 / 250.000 250ml 250 ml @ 167 mls/hr IV Q24H [facility] Rx#:[id number] MAGNESIUM SULFATE 1gm PREMIX 1 200 / 200 gm In 100 ml @ 100 mls/hr IV Q1H [facility] Rx#:[id number] Ns 1,000 ml @ 100 mls/hr IV . 267.917 / 267.917 564.166 / 564.166 506.667 / 506.667 Q10H [facility] Rx#:[id number] Vancomycin 1,500 mg In NS 500ml 500.000 / 500.000 500 ml @ 250 mls/hr IV Q24H [facility] Rx#:[id number] Oral 180 / 180 270 / 270 Output: Urine Amount (Catheter) 1195 / 1195 1045 / 1045 175 / 175 Other: Urine Appearance Clear Clear Clear Urine Color Straw Straw Yellow Urine Odor Normal Stool Characteristics Normal for Patient Stool Color Brown Stool Consistency Soft Formed Size of Bowel Movement Small # Bowel Movements 1 1 - Imaging and Cardiology Imaging & Cardiology Narrative: Date of Exam: 04/15/17 Ordering Provider: Della Gerber MD Type of Exam(s): XR chest 2V Reason for Exam(s): increased edema Indication: increased edema PROCEDURE: XR chest 2V: Encounter: Initial Comparison: 04/14/2017 Findings: There is subtle linear changes of atelectasis and/or scarring in both lower lung herrera with overall expiratory technique. No definite pleural effusion. Trachea is midline. No subdiaphragmatic free air. Heart size is normal. Impression: Bibasilar atelectasis and/or scarring with overall expiratory technique. 04/15/17 13:56 Assessment and Plan - Assessment and Plan (1) Non-ST elevation myocardial infarction (NSTEMI), type 2 Status: Acute likely due to hypoxia related with severe sepsis - troponins remain flat - 2D Echo - Outpatient stress test after current illness (2) Pneumonia Status: Acute (3) Severe sepsis Status: Acute (4) Acute respiratory failure with hypoxia and hypercapnia Status: Acute (5) COPD exacerbation Status: Acute - Assessment and Plan Type II [place] : likely due to hypoxia related with severe sepsis - troponins remain flat - 2D Echo - Outpatient stress test after current illness Thank you for allowing us to participate in this patient's care. Hospital Course Summary Disclaimer: The visit summary below is not to be considered part of the above Progress Note. Hospital Course: 04/15/17 Persistent leukocytosis however clinically improving. Oxygen titrated down to 3 L, respiratory symptoms improved. One of the initial blood cultures was positive for staph species-suspect contaminant however we'll continue empiric coverage with vancomycin pending further identification. Blood cultures repeated today. Steroids tapered yesterday-may be able to convert to prednisone tomorrow. Appreciate Dr. Tony's assistance. Continue azithromycin/ceftriaxone for pulmonary coverage although viral syndrome more likely based on symptoms prior to hospitalization. Completes azithromycin today. Persistent leukocytosis may be result of high-dose steroids being given prior days; continue to monitor. Acute kidney injury and hepatic injury consistent with hypoxia prior to hospitalization-both improving. Dr. Faria to see regarding elevated troponin; telemetry strips reviewed by myself-consistent sinus rhythm. EKG on admission was unremarkable. Repeat today. Suspect type II [place] due to hypoxia/stress however patient has multiple cardiac risk factors. Persistent hyperglycemia, corrective insulin doses adjusted and Lantus initiated. <Michelet Faria - Last Filed: 04/22/17 16:01> [facility] Patient Stated Medical History Cataracts Yes Hypertension Yes Chronic Obstructive Pulmonary Yes Disease (COPD) Exam Vital signs: Temperature 98.6 F 04/17/17 07:31 Pulse Rate 89 04/17/17 12:01 Respiratory Rate 24 04/17/17 11:00 Blood Pressure 140/77 H 04/17/17 11:53 Pulse Oximetry 83 L 04/17/17 12:01 Results 04/17/17 04:27 04/17/17 04:28 Assessment and Plan - Attestation Attestation Narrative: 04/22/17 16:01 Recommendation After examining the patient I agree with the above assessment. I am involved in the formulation of the patient's plan of care. - Assessment and Plan (1) Pneumonia Status: Acute (2) Severe sepsis Status: Acute (3) Acute respiratory failure with hypoxia and hypercapnia Status: Acute (4) COPD exacerbation Status: Acute (5) Non-ST elevation myocardial infarction (NSTEMI), type 2 Status: Acute (6) Essential (primary) hypertension Status: Acute (7) Mixed hyperlipidemia Status: Acute Hospital Course Summary Disclaimer: The visit summary below is not to be considered part of the above Progress Note.
--- NOTE | 2017-04-15 13:53 | Pharmacy Consult-Antibiotics ---
Pharmacy Consult-Vancomycin - Laboratory Information WBC 23.8 T/MM3 (4.5-11.0) H 04/15/17 04:24 BUN 38.0 MG/DL (9-20) H 04/15/17 04:24 Creatinine 1.5 MG/DL (0.8-1.5) D 04/15/17 04:24 Procalcitonin 0.19 NG/ML 04/13/17 17:32 - Consult Information VANCOMYCIN CONSULT: Dx: Sepsis Current Renal Fx: SCr = 1.5mg/dl. Will give Vancomycin 1,500mg IV q24hrs. Will continue to monitor and adjust regimen to maintain therapeutic levels. Thank you.
--- NOTE | 2017-04-15 15:48 | Pulmonology Progress Note ---
Subjective Principal diagnosis: SOB Interval history: Pt sitting up to EOB. States his breathing is doing better. Didn't use bipap last noc. No cough or sputum at this time, slight SOB noted. Exam Vital signs: Temperature 98.1 F 04/14/17 15:49 Pulse Rate 90 04/15/17 08:00 Respiratory Rate 20 04/15/17 11:49 Blood Pressure 175/80 H 04/15/17 07:01 Pulse Oximetry 97 04/15/17 11:49 - Constitutional no acute distress, obese, cooperative - Routine HEENT Exam Head: Present: normocephalic, atraumatic Eye: Present: EOMI, PERRL ENT: Present: mucous membranes moist - Routine Neck Exam Present: supple, trachea midline - Routine Respiratory Exam Present: decreased breath sounds - Routine Cardiovascular Exam Present: RRR, S1, S2, no murmur - Routine Abdominal Exam Present: soft, normoactive bowel sounds - Routine Extremities Exam Present: no edema, non tender, full ROM - Routine Back/Spine/Pelvis Exam Back/Spine: Present: full ROM - Routine Skin Exam Present: intact, dry - Routine Neurological Exam Present: alert, oriented X3, CN II-XII intact - Routine Psychiatric Exam Present: normal affect, normal thought process - Urinary Catheter Management Urethral Cath placed during this visit: yes Urethral indwelling: Yes Reason for continuing: Accurate I&O/Aggressive Diuresis Insertion date: 04/13/17 Insertion time: 20:00 Assessment and Plan - Assessment and Plan Acute Hypoxic Hypercapnic Respiratory Failure COPD exacerbation Sepsis Plan: Pt currently on O2 at 3L per NC (no O2 at home), wean to keep sats 90-95%, didn' t use bipap last noc. Cont on BT's A/A q4hr, Advair diskus, and solumedrol 40mg q6, wean to q8hr. CXR with basilar atelectasis, cont IS and ambulation. Sputum is a poor sample, BC + x 1 for staph coa neg, likely contaminent, repeat cx pending. WBC stable 23.8, afebrile, cont to follow. Ok to transfer to the floor. - Time Spent With Patient Total time spent is greater than 50% in coordination of care (as documented) at patient's floor/unit and/or counseling patient: less than 15 minutes
[2017-04-15] MEDS: AZITHROMYCIN IV 500 MG in NS 250ml 250 ML IV SCH (20:51)
[2017-04-15] MEDS: FLUTICASONE NASAL SPRAY 50mcg EA NOSTRIL SCH ×2 (20:51→21:10)
[2017-04-15] MEDS: FAMOTIDINE 20 MG TABLET PO SCH (20:52)
[2017-04-15] MEDS: PRAVASTATIN 40 MG TABLET PO SCH (20:52)
[2017-04-15] MEDS: INSULIN GLARGINE 100unit/ml INJECTION SQ SCH (20:52)
[2017-04-16] MEDS: ALBUTEROL/IPRATROPIUM 2.5mg-0.5mg/3ml NEB AEROSOL SCH ×7 (01:10→22:56)
[2017-04-16] MEDS: METHYLPREDNISOLONE SOD SUCC 40mg/ml INJECTION IVP SCH ×3 (02:28→08:41)
[2017-04-16] MEDS: HEPARIN SUB-Q 5,000units/0.5ml INJECTION SQ SCH ×3 (02:28→17:31)
[2017-04-16] MEDS: NS 1,000 ML IV SCH ×4 (03:25→17:16)
[2017-04-16] MEDS: LEVOTHYROXINE 150 MCG TABLET PO SCH (07:01)
[2017-04-16] MEDS: BUDESONIDE INH.SOLN 0.5mg/2ml NEB AEROSOL SCH ×2 (07:58→19:40)
[2017-04-16] MEDS: ASPIRIN *EC* 81 MG TABLET PO SCH (08:38)
[2017-04-16] MEDS: CEFTRIAXONE 1 G in NS 50 ML IV SCH (08:38)
[2017-04-16] MEDS: FLUTICASONE NASAL SPRAY 50mcg EA NOSTRIL SCH ×2 (08:38→21:40)
[2017-04-16] MEDS: ASCORBIC ACID 500 MG TABLET PO SCH (08:38)
[2017-04-16] MEDS: GEMFIBROZIL 600 MG TABLET PO SCH (08:39)
[2017-04-16] MEDS: AMLODIPINE 5 MG TABLET PO SCH (14:02)
--- NOTE | 2017-04-16 15:22 | Pulmonology Progress Note ---
Subjective Principal diagnosis: SOB Interval history: No complaints. breathing is stable and overall improved Denies cough or sputum on nc O2 Exam Vital signs: Temperature 97.5 F 04/16/17 07:52 Pulse Rate 90 04/16/17 14:05 Respiratory Rate 18 04/16/17 13:00 Blood Pressure 158/75 H 04/16/17 13:00 Pulse Oximetry 95 04/16/17 13:00 - Constitutional no acute distress, obese - Routine HEENT Exam Head: Present: normocephalic, atraumatic Eye: Absent: conjunctival icterus - Routine Neck Exam Present: supple, full ROM - Routine Respiratory Exam Present: decreased breath sounds. Absent: wheezes - Routine Cardiovascular Exam Present: RRR - Routine Abdominal Exam Present: soft - Urinary Catheter Management Urethral Cath placed during this visit: yes, but has since been removed by the nurse Urethral indwelling: Yes Insertion date: 04/13/17 Insertion time: 20:00 Removal date: 04/15/17 Removal time: 16:30 Assessment and Plan (1) Acute respiratory failure with hypoxia and hypercapnia Status: Acute Assessment and plan: overall improved. on nasal cannula O2. Wean as tolerated Current Visit: Yes (2) COPD exacerbation Status: Acute Assessment and plan: stop solumedrol start prednisone 30 mg daily Neb bronchodilators Current Visit: Yes (3) Severe sepsis Status: Acute Assessment and plan: resolved. blood cultures likely contaminated with coag neg staph source likely pneumonia - on empiric antibiotics Current Visit: Yes - Assessment and Plan Acute Hypoxic Hypercapnic Respiratory Failure COPD exacerbation Sepsis - Time Spent With Patient Total time spent is greater than 50% in coordination of care (as documented) at patient's floor/unit and/or counseling patient: less than 15 minutes
--- NOTE | 2017-04-16 16:58 | Progress Note ---
- Date 04/16/17 Subjective: Mr. Ballard was resting when seen and indicated that he is breathing a lot better than several days ago. He continues to have cough which is nonproductive and is requiring supplemental oxygen. He slept well last night for the first time in several days. He did not use BiPAP and doesn't feel he'll need it again. He denied chest pain, palpitations, nausea, or vomiting. He's having normal bowel movements. He urinated frequently yesterday following removal of the Uriarte catheter with some incontinence especially with cough. He also noted hematuria immediately after the catheter was removed but reports bladder control is improving today and hematuria clearing. He has chronic back pain which is unchanged from baseline. He ambulated with physical therapy today and reports that he did very well. Objective Vital signs: Temperature 96.3 F L 04/16/17 15:52 Pulse Rate 82 04/16/17 16:00 Respiratory Rate 16 04/16/17 15:52 Blood Pressure 153/77 H 04/16/17 15:52 Pulse Oximetry 94 ? RA 04/16/17 15:52 I/O 2657/1005 Weight up 2 kg from yesterday EXAM General-NAD, alert, fluent speech HEENT-conjunctiva clear, sclera anicteric, oropharynx clear Lungs-respirations nonlabored, good airflow, breath sounds clear anteriorly and posteriorly Cardiac-regular rhythm, S1-S2 Abd-soft, nontender, moderately obese, bowel sounds present although diminished Ext-without edema Neuro-MAEW Psych-calm, cooperative, euthymic - Rhythm: Normal Sinus Rhythm (telemetry strips reviewed by myself) Height/Weight/BMI: Height 1.68 m Weight 103 kg Body Mass Index 35.7 Results - Labs CBC & Chem 7: 04/16/17 04:51 04/16/17 04:51 Labs: S86 B1 L7 M6 Accu-Cheks [id number] today AST 152, ALT 126; bilirubin/alk phosphatase normal Microbiology Results: 04/15/17 10:56 Peripheral/Iv Start Blood Culture - Preliminary No Growth After 1 Day 04/15/17 10:56 Peripheral/Iv Start Blood Culture - Preliminary No Growth After 1 Day 04/13/17 20:09 Urine, Voided (Cc/notcc) Urine Culture - Final No Growth After 2 Days 04/14/17 00:24 Sputum, Suctioned Gram Stain - Final 04/14/17 00:24 Sputum, Suctioned Sputum Culture - Final Blood cultures drawn 04/13 03/12 positive coag-negative staph - ECG Data Tracing #1 I reviewed this ECG and interpreted as documented below: (EKG obtained yesterday reviewed-sinus rhythm without acute changes) Assessment and Plan (1) Acute respiratory failure with hypoxia and hypercapnia Current visit: Yes Status: Acute (2) Severe sepsis Current visit: Yes Status: Acute Assessment and Plan: Impression: Severe sepsis Acute hypoxic/hypercarbic respiratory failure Positive blood culture COPD with acute exacerbation Possible pneumonia Diabetes mellitus, new diagnosis-A1c 7.7 Elevated troponin, c/w type II non-ST elevation SD Acute kidney injury Acute hepatic injury-elevated AST/ALT Leukocytosis Hypertension Hyperlipidemia Hypothyroidism Plan: Clinically improving although there is persistent leukocytosis which may be result of steroids use. Continue ceftriaxone for pulmonary coverage although viral syndrome more likely based on symptoms prior to hospitalization. Completed a three-day course azithromycin 500 mg per day yesterday. One of the initial blood cultures was positive for coag-negative staph; repeat cultures drawn yesterday-if negative in the tomorrow morning will discontinue vancomycin. IV steroids converted to prednisone today; appreciate Dr. Tony's assistance. Acute kidney injury and hepatic injury consistent with hypoxia prior to hospitalization-both improving. Dr. Faria recommended outpatient stress test; echocardiogram obtained-report pending Suspect type II SD due to hypoxia/stress of acute illness. Persistent hyperglycemia, corrective insulin doses adjusted and Lantus initiated yesterday with improved control today. Diabetes education initiated. PT/OT have evaluated and did not feel outpatient therapy would be needed. Titrate oxygen as status permits. DVT Prophylaxis: SQ Heparin GI Prophylaxis: Pepcid Resuscitation Status: Do Not Resuscitate - Physician Narrative Narrative: Date: 04/16/17 Time: 1654 Hospital Course Summary Disclaimer: The visit summary below is not to be considered part of the above Progress Note. Hospital Course: 04/15/17 Persistent leukocytosis however clinically improving. Oxygen titrated down to 3 L, respiratory symptoms improved. One of the initial blood cultures was positive for staph species-suspect contaminant however we'll continue empiric coverage with vancomycin pending further identification. Blood cultures repeated today. Steroids tapered yesterday-may be able to convert to prednisone tomorrow. Appreciate Dr. Tony's assistance. Continue azithromycin/ceftriaxone for pulmonary coverage although viral syndrome more likely based on symptoms prior to hospitalization. Completes azithromycin today. Persistent leukocytosis may be result of high-dose steroids being given prior days; continue to monitor. Acute kidney injury and hepatic injury consistent with hypoxia prior to hospitalization-both improving. Dr. Faria to see regarding elevated troponin; telemetry strips reviewed by myself-consistent sinus rhythm. EKG on admission was unremarkable. Repeat today. Suspect type II SD due to hypoxia/stress however patient has multiple cardiac risk factors. Persistent hyperglycemia, corrective insulin doses adjusted and Lantus initiated. 04/16/17 Clinically improving although there is persistent leukocytosis which may be result of steroids use. Continue ceftriaxone for pulmonary coverage--completed a three-day course azithromycin 500 mg per day yesterday. One of the initial blood cultures was positive for coag-negative staph; repeat cultures drawn yesterday-if negative in the tomorrow morning will discontinue vancomycin. IV steroids converted to prednisone today; continue to taper. Acute kidney injury and hepatic injury consistent with hypoxia prior to hospitalization-both improving. Dr. Faria recommended outpatient stress test; echocardiogram obtained-report pending Suspect type II SD due to hypoxia/stress of acute illness. Blood sugar control improving with basal insulin initiated yesterday.
--- NOTE | 2017-04-16 17:32 | Echocardiogram ---
DATE OF PROCEDURE April 16, 2017 This is a two-dimensional echo with spectral Doppler, color-flow and M-mode. It was obtained in a patient with elevated troponin. Left atrium is dilated. Left ventricular end-diastolic dimension is normal. Left ventricular wall thickness is normal. LV systolic function is normal with ejection fraction of about 55%. Right atrium is normal. Right ventricle is normal. Aortic root dimension is normal. Mitral valve is morphologically normal with mild mitral regurgitation. Aortic valve shows fibrocalcific changes with no stenosis or insufficiency. Tricuspid valve shows mild tricuspid regurgitation with moderate pulmonary hypertension with estimated pulmonary artery systolic pressure of 55. Pulmonary valve shows mild pulmonary insufficiency. There is no pericardial effusion. IMPRESSION 1. Normal LV systolic function with ejection fraction of 55%. 2. Left atrial dilation. 3. Mild mitral regurgitation. 4. Aortic sclerosis. 5. Mild tricuspid regurgitation with moderate pulmonary hypertension with estimated pulmonary artery systolic pressure of 55. 6. Mild pulmonary insufficiency. MTDD
--- NOTE | 2017-04-16 17:52 | Cardiology Progress Note ---
<Corie Anderson - Last Filed: 04/16/17 17:49> Subjective Principal diagnosis: elevated troponin Interval history: Amando is seen in follow up for NSTEMI, type II likely secondary to hypoxia and sepsis. He is up in his room and states he is feeling fine, hopes to get to go home soon. He denies chest pain or pressure, states breathing is improved, denies dizziness or nausea. Exam Vital signs: Temperature 96.3 F L 04/16/17 15:52 Pulse Rate 82 04/16/17 16:00 Respiratory Rate 16 04/16/17 15:52 Blood Pressure 153/77 H 04/16/17 15:52 Pulse Oximetry 94 04/16/17 15:52 - Constitutional no acute distress, well nourished, cooperative - Routine HEENT Exam Head: Present: normocephalic ENT: Present: mucous membranes moist - Routine Neck Exam Absent: JVD, carotid bruit - Routine Chest/Breast/Axilla Exam Chest wall: Absent: tenderness - Routine Respiratory Exam Present: CTA bilaterally. Absent: rales, wheezes - Routine Cardiovascular Exam Present: RRR, no murmur - Routine Abdominal Exam Present: soft - Routine Extremities Exam Present: no edema - Routine Skin Exam Present: intact, dry, warm - Routine Neurological Exam Present: alert, oriented X3 - Routine Psychiatric Exam Present: normal affect, normal thought process - Additional findings Additional findings: Albuterol/Ipratropium (Duoneb) 3 ml AEROSOL Q4H [facility] Last Admin: 04/16/17 15:32 Dose: 3 ml Amlodipine Besylate (Norvasc) 5 mg PO DAILY [facility] Last Admin: 04/16/17 14:02 Dose: 5 mg Ascorbic Acid (Vitamin C) 500 mg PO DAILY [facility] Last Admin: 04/16/17 08:38 Dose: 500 mg Aspirin (Ecotrin) 81 mg PO DAILY [facility] Last Admin: 04/16/17 08:38 Dose: 81 mg Budesonide (Pulmicort Inhalation) 0.5 mg AEROSOL RTBID [facility] Last Admin: 04/16/17 07:58 Dose: 0.5 mg Dextrose (D50%W) 10 ml IVP PRN PRN PRN Reason: Hypoglycemia Famotidine (Pepcid) 20 mg PO HS [facility] Last Admin: 04/15/17 20:52 Dose: 20 mg Fluticasone Propionate (Flonase) 2 spray EA NOSTRIL BID [facility] Last Admin: 04/16/17 08:38 Dose: 2 spray Gemfibrozil (Lopid) 600 mg PO 0730 [facility] Last Admin: 04/16/17 08:39 Dose: 600 mg Heparin Sodium (Porcine) (Heparin Sq) 5,000 units SQ Q8HR [facility] Last Admin: 04/16/17 17:31 Dose: 5,000 units Ceftriaxone Sodium 1 g/ Sodium (Chloride) 50 mls @ 200 mls/hr IV Q24H [facility] Last Infusion: 04/16/17 08:54 Dose: Infused Vancomycin HCl 1,500 mg/ (Sodium Chloride) 500 mls @ 250 mls/hr IV Q24H [facility] Last Infusion: 04/16/17 17:14 Dose: Infused Insulin Aspart (Novolog) 2 - 10 unit SQ SS PRN; Protocol PRN Reason: Hyperglycemia Last Admin: 04/15/17 13:33 Dose: 2 unit Insulin Glargine (Lantus) 10 unit SQ [facility] Last Admin: 04/15/17 20:52 Dose: 10 unit Levothyroxine Sodium (Synthroid) 150 mcg PO ACB [facility] Last Admin: 04/16/17 07:01 Dose: 150 mcg Lorazepam (Ativan Inj) 0.5 mg IVP O PRN Last Admin: 04/13/17 16:52 Dose: 0.5 mg Lorazepam (Ativan Inj) 0.5 mg IVP O PRN Last Admin: 04/13/17 18:15 Dose: 0.5 mg Lorazepam (Ativan Inj) 0.5 mg IVP Q6H PRN Last Admin: 04/16/17 02:28 Dose: 0.5 mg Lorazepam (Ativan) 0.5 mg PO Q8H PRN PRN Reason: Anxiety Menthol (Ricola Sf) 1 lozenge MM PRN PRN PRN Reason: Cough Last Admin: 04/14/17 23:25 Dose: 1 lozenge Metoprolol Succinate (Toprol Xl) 50 mg PO DAILY [facility] Last Admin: 04/16/17 08:41 Dose: 50 mg Ondansetron HCl (Zofran) 4 mg IVP Q6H PRN PRN Reason: Nausea Pravastatin Sodium (Pravachol) 40 mg PO [facility] Last Admin: 04/15/17 20:52 Dose: 40 mg Prednisone (Deltasone 10 Mg) 30 mg PO WB [facility] Fluticasone/Salmeterol (Advair Diskus) 1 puff IH BID [facility] Last Admin: 04/16/17 09:16 Dose: 1 puff Sodium Chloride (Iv Flush) 10 - 80 ml IVF PRN PRN PRN Reason: Flushing Last Admin: 04/15/17 02:49 Dose: 10 ml Sodium Chloride (Normal Saline) 500 ml IV PRN PRN - Urinary Catheter Management Urethral Cath placed during this visit: yes, but has since been removed by the nurse Urethral indwelling: Yes Insertion date: 04/13/17 Insertion time: 20:00 Removal date: 04/15/17 Removal time: 16:30 Results 04/16/17 04:51 04/16/17 04:51 Cardiac Enzymes 04/16/17 Range/Units 04:51 AST 152 H (17-59) U/L CBC 04/16/17 Range/Units 04:51 WBC 19.8 H (4.5-11.0) T/MM3 RBC 4.74 (4.50-5.90) M/MM3 Hgb 13.9 (13.5-17.5) GM/DL Hct 42.2 (41-53) % Plt Count 187 (130-400) T/MM3 Neut # (Auto) Not performed Lymph # (Auto) Not performed [place] # (Auto) Not performed Eos # (Auto) Not performed Baso # (Auto) Not performed Comprehensive Metabolic Panel 04/16/17 Range/Units 04:51 Sodium 142 (134-144) MEQ/L Potassium 4.8 (3.6-5) MEQ/L Chloride 106 (98-107) MEQ/L Carbon Dioxide 27 (22-30) MEQ/L BUN 41.0 H (9-20) MG/DL Creatinine 1.2 D (0.8-1.5) MG/DL Glucose 164 H (75-110) MG/DL Calcium 9.0 (8.4-10.2) MG/DL AST 152 H (17-59) U/L ALT 126 H (21-72) U/L Alkaline Phosphatase 64 (38-126) U/L Total Protein 8.0 (6.3-8.2) G/DL Albumin 4.0 (3.5-5.0) G/DL Intake and Output 04/16/17 04/16/17 04/16/17 06:59 14:59 22:59 Intake Total 400 / 400 1893.333 / 1893.333 503.333 / 503.333 Balance 400 / 400 1893.333 / 1893.333 503.333 / 503.333 Intake: IV 1593.333 / 1593.333 503.333 / 503.333 Azithromycin IV 500 mg In NS 250 / 250 250ml 250 ml @ 167 mls/hr IV Q24H [facility] Rx#:[id number] Ceftriaxone 1 g In Ns 50 ml @ 100 / 100 200 mls/hr IV Q24H [facility] Rx#: [id number] Ns 1,000 ml @ 100 mls/hr IV . 743.333 / 743.333 3.333 / 3.333 Q10H [facility] Rx#:[id number] Vancomycin 1,500 mg In NS 500ml 500 / 500 500 / 500 500 ml @ 250 mls/hr IV Q24H [facility] Rx#:[id number] Oral 400 / 400 300 / 300 Other: Urine Appearance Clear Urine Color Yellow Urine Odor Normal # Voids 1 1 1 # Bowel Movements 1 Weight 227 lb 1.218 oz Patient Weight 04/17/17 06:59 Weight 227 lb 1.218 oz - Imaging and Cardiology Imaging & Cardiology Narrative: 04/16/Date of Exam: 04/16/17 Type of Exam(s): US echo doppler complete DATE OF PROCEDURE April 16, 2017 This is a two-dimensional echo with spectral Doppler, color-flow and M-mode. It was obtained in a patient with elevated troponin. Left atrium is dilated. Left ventricular end-diastolic dimension is normal. Left ventricular wall thickness is normal. LV systolic function is normal with ejection fraction of about 55%. Right atrium is normal. Right ventricle is normal. Aortic root dimension is normal. Mitral valve is morphologically normal with mild mitral regurgitation. Aortic valve shows fibrocalcific changes with no stenosis or insufficiency. Tricuspid valve shows mild tricuspid regurgitation with moderate pulmonary hypertension with estimated pulmonary artery systolic pressure of 55. Pulmonary valve shows mild pulmonary insufficiency. There is no pericardial effusion. IMPRESSION 1. Normal LV systolic function with ejection fraction of 55%. 2. Left atrial dilation. 3. Mild mitral regurgitation. 4. Aortic sclerosis. 5. Mild tricuspid regurgitation with moderate pulmonary hypertension with estimated pulmonary artery systolic pressure of 55. 6. Mild pulmonary insufficiency. 18 17:54 Assessment and Plan - Assessment and Plan (1) Non-ST elevation myocardial infarction (NSTEMI), type 2 Status: Acute (2) Pneumonia Status: Acute (3) Severe sepsis Status: Acute (4) Acute respiratory failure with hypoxia and hypercapnia Status: Acute (5) COPD exacerbation Status: Acute (6) Essential (primary) hypertension Status: Acute Continue Amlodipine and Metoprolol (7) Mixed hyperlipidemia Status: Acute Continue Pravastatin - Assessment and Plan 04/15/17 Type II PA : likely due to hypoxia related with severe sepsis - troponins remain flat - 2D Echo - Outpatient stress test after current illness Thank you for allowing us to participate in this patient's care. 04/16/17 Resume Amlodipine 5mg daily as BP elevated EF 55% on echo with moderate pulmonary hypertension with estimated pulmonary artery systolic pressure of 55. Hospital Course Summary Disclaimer: The visit summary below is not to be considered part of the above Progress Note. Hospital Course: 04/15/17 Persistent leukocytosis however clinically improving. Oxygen titrated down to 3 L, respiratory symptoms improved. One of the initial blood cultures was positive for staph species-suspect contaminant however we'll continue empiric coverage with vancomycin pending further identification. Blood cultures repeated today. Steroids tapered yesterday-may be able to convert to prednisone tomorrow. Appreciate Dr. Tony's assistance. Continue azithromycin/ceftriaxone for pulmonary coverage although viral syndrome more likely based on symptoms prior to hospitalization. Completes azithromycin today. Persistent leukocytosis may be result of high-dose steroids being given prior days; continue to monitor. Acute kidney injury and hepatic injury consistent with hypoxia prior to hospitalization-both improving. Dr. Faria to see regarding elevated troponin; telemetry strips reviewed by myself-consistent sinus rhythm. EKG on admission was unremarkable. Repeat today. Suspect type II PA due to hypoxia/stress however patient has multiple cardiac risk factors. Persistent hyperglycemia, corrective insulin doses adjusted and Lantus initiated. 04/16/17 Clinically improving although there is persistent leukocytosis which may be result of steroids use. Continue ceftriaxone for pulmonary coverage--completed a three-day course azithromycin 500 mg per day yesterday. One of the initial blood cultures was positive for coag-negative staph; repeat cultures drawn yesterday-if negative in the tomorrow morning will discontinue vancomycin. IV steroids converted to prednisone today; continue to taper. Acute kidney injury and hepatic injury consistent with hypoxia prior to hospitalization-both improving. Dr. Faria recommended outpatient stress test; echocardiogram obtained-report pending Suspect type II PA due to hypoxia/stress of acute illness. Blood sugar control improving with basal insulin initiated yesterday. <Michelet Faria - Last Filed: 04/23/17 07:49> Exam Vital signs: Temperature 98.6 F 04/17/17 07:31 Pulse Rate 89 04/17/17 12:01 Respiratory Rate 24 04/17/17 11:00 Blood Pressure 140/77 H 04/17/17 11:53 Pulse Oximetry 83 L 04/17/17 12:01 - Urinary Catheter Management Urethral Cath placed during this visit: no Results 04/17/17 04:27 04/17/17 04:28 Assessment and Plan - Assessment and Plan (1) Pneumonia Status: Acute (2) Severe sepsis Status: Acute (3) Acute respiratory failure with hypoxia and hypercapnia Status: Acute (4) COPD exacerbation Status: Acute (5) Non-ST elevation myocardial infarction (NSTEMI), type 2 Status: Acute (6) Essential (primary) hypertension Status: Acute (7) Mixed hyperlipidemia Status: Acute - Attestation Attestation Narrative: 04/23/17 07:49 Recommendation After examining the patient I agree with the above assessment. I am involved in the formulation of the patient's plan of care. Hospital Course Summary Disclaimer: The visit summary below is not to be considered part of the above Progress Note.
[2017-04-16] MEDS: FAMOTIDINE 20 MG TABLET PO SCH (20:14)
[2017-04-16] MEDS: SALINE FLUSH 10ml SYRINGE IVF PRN (20:15)
[2017-04-16] MEDS: PRAVASTATIN 40 MG TABLET PO SCH (20:15)
[2017-04-16] MEDS: INSULIN GLARGINE 100unit/ml INJECTION SQ SCH (20:15)
[2017-04-17] MEDS: HEPARIN SUB-Q 5,000units/0.5ml INJECTION SQ SCH ×2 (01:58→08:14)
[2017-04-17] MEDS: ALBUTEROL/IPRATROPIUM 2.5mg-0.5mg/3ml NEB AEROSOL SCH ×3 (03:50→11:00)
[2017-04-17] MEDS: BUDESONIDE INH.SOLN 0.5mg/2ml NEB AEROSOL SCH (07:00)
[2017-04-17 07:33] VITALS: TEMP 98.6
[2017-04-17] MEDS: LEVOTHYROXINE 150 MCG TABLET PO SCH (07:46)
[2017-04-17] MEDS ORDERED: ACETAMINOPHEN 325 MG TABLET PO PRN ×2 (07:46→07:54)
[2017-04-17] MEDS ORDERED: PredniSONE 10 MG TABLET PO SCH (08:00)
[2017-04-17] MEDS: AMLODIPINE 5 MG TABLET PO SCH (08:08)
[2017-04-17] MEDS: ASCORBIC ACID 500 MG TABLET PO SCH (08:09)
[2017-04-17] MEDS: ASPIRIN *EC* 81 MG TABLET PO SCH (08:09)
[2017-04-17] MEDS: FLUTICASONE NASAL SPRAY 50mcg EA NOSTRIL SCH (08:11)
[2017-04-17] MEDS: CEFTRIAXONE 1 G in NS 50 ML IV SCH (08:11)
[2017-04-17] MEDS: GEMFIBROZIL 600 MG TABLET PO SCH (08:15)
[2017-04-17] MEDS ORDERED: AMLODIPINE 5 MG TABLET PO SCH (08:45)
[2017-04-17] MEDS ORDERED: LISINOPRIL 10 MG TABLET PO SCH (10:15)
[2017-04-17 11:06] VITALS: RESP 24
[2017-04-17 11:54] VITALS: BP 140/77
[2017-04-17 12:05] VITALS: PULSE 89; O2SAT 83
--- NOTE | 2017-04-17 12:52 | Discharge Summary ---
Discharge Information Date of admission: 04/13/17 18:29 Anticipated date of discharge: 04/17/17 Attending Physician: Bisi Vera MD Primary care physician: Juan Francisco Hitchcock MD Consults: Consulting Provider: Harish Tony Reason For Exam: hypoxic resp failure Consulting Provider: Michelet Acevedo Reason For Exam: Troponinemia in sepsis Insole Filler Consult [Inpatient Diabetic Consult] - Discharge Diagnosis (1) Acute respiratory failure with hypoxia and hypercapnia Status: Acute DISCHARGE DIAGNOSES Severe sepsis - resolved Acute hypoxic/hypercarbic respiratory failure Positive blood culture with ENGINE TESTER, felt to be contaminant COPD with acute exacerbation Possible pneumonia Diabetes mellitus, new diagnosis - A1c 7.7% Elevated troponin, type II non-ST elevation MN Acute kidney injury - improved Acute hepatic injury-elevated AST/ALT Leukocytosis Hypertension Hyperlipidemia Hypothyroidism - Procedures Procedures: ECHO 04/16/17 IMPRESSION 1. Normal LV systolic function with ejection fraction of 55%. 2. Left atrial dilation. 3. Mild mitral regurgitation. 4. Aortic sclerosis. 5. Mild tricuspid regurgitation with moderate pulmonary hypertension with estimated pulmonary artery systolic pressure of 55. 6. Mild pulmonary insufficiency. PORTILLO CATHETER 04/13/17-04/15/17 Ambulatory oximetry 04/17/17 RA O2 saturation at rest and with ambulation 83%; 2 L O2 initiated and subsequently increased to 3 L to maintain saturation of 92-93% ambulating. - Laboratory Labs: 04/17/17 04:27 04/17/17 04:28 - Microbiology Microbiology 04/15/17 10:56 Peripheral/Iv Start Blood Culture - Preliminary No Growth After 2 Days 04/15/17 10:56 Peripheral/Iv Start Blood Culture - Preliminary No Growth After 2 Days 04/13/17 20:09 Urine, Voided (Cc/notcc) Urine Culture - Final No Growth After 2 Days 04/14/17 00:24 Sputum, Suctioned Gram Stain - Final 04/14/17 00:24 Sputum, Suctioned Sputum Culture - Final - Radiology Radiology: CXR 04/13/17: Hypoinflation without acute cardiopulmonary abnormality. CXR 04/15/17: Bibasilar atelectasis and/or scarring with overall expiratory technique. History of Present Illness HPI: 76 y/o male pt with of COPD not requiring oxygen therapy, HTN, hypothyroidism presented to the ED for confusion, weakness and resp failure. He met criteria for severe sepsis. He was given IV fluids in the emergency room along with Rocephin 1 g once. Blood cultures were drawn. Chest x-ray shows possible right hilar infiltrate. His oxygen saturation on room air on presentation to the emergency room with 80%. Even on 6 L he only went up to 85%. Subsequently placed on BiPAP with improved saturations. His lactate was elevated at 2.4. Pro- calcitonin was normal. ABG showed a pH of 7.31 with a PCO2 57 and a PO2 of 176 on 70% oxygen with the BiPAP. AST and ALT were minimally elevated. Anion gap was 16. Electrolytes were relatively good with the exception of an elevated CO2 at 30 ,slighly elevated creatinine of 1.5 and hyperglycemia (pt is not known diabetic). White blood count was 24,000, 84% neutrophils. Respiration rate of 40 -45. He had a temperature of 100.5. He was tachycardic at 111 bpm. Initially blood pressure was 115/77 but by the time I saw the emergency room it was 147/ 74. Influenza screen was negative. When seen by me in the emergency room he was on his CPAP. He was not answering questions or following commands but he did just received some Ativan. His history is obtained from the emergency room notes as well as a lady friend and his niece who accompanying him. Apparently the patient has been complaining of progressive weakness for months and has seen his primary care physician Dr. Hitchcock, he was reassured it was none of his medications. This has not increased, it's been about the same throughout the last month or so. Per his friend, last night however the patient developed shivering and was cold, unable to get warm. He has had cough and nasal congestion. Friend is unaware if he's had any sputum production. She reports he's always short of breath but that seem to be worse today. This morning he presented to her job and was quite confused. She set him back home and had another lady friend check on him later in the afternoon. When she saw him he was quite confused and very weak. He continued to complain of shaking chills and unable to get warm. She decided to bring him to the emergency room. As far as the first friend is aware, he has not complained of any headache, lightheadedness or dizziness. He has not complained of any chest discomfort, pressure or tightness. He's not complained of any palpitations. He has not complained of nausea or vomiting. She reports he has diarrhea on an off and this is chronic. She states his appetite hasn't been great but he ate pizza last night. She reports that he does not sleep well. He does fall asleep easily during the day. She does also reports that he has had increasing lower extremity edema last couple of days and this is unusual for him to have. BNP however is very low at 78. ECG does not show acute abnormalities. Troponin neg. The patient is a DNR. Objective Vital signs: Temperature 98.6 F 04/17/17 07:31 Pulse Rate 89 04/17/17 12:01 Respiratory Rate 24 04/17/17 11:00 Blood Pressure 140/77 H 04/17/17 11:53 Pulse Oximetry 83 L 04/17/17 12:01 Rhythm: Normal Sinus Rhythm (telemetry strips reviewed by myself) Height/Weight/BMI: Height 1.68 m Weight 103 kg Body Mass Index 35.7 - Constitutional Present: no acute distress, well nourished, well developed - Routine HEENT Exam Head: Present: normocephalic Eye: Present: PERRL. Absent: conjunctival icterus, scleral injection - Routine Respiratory Exam Present: CTA bilaterally - Routine Cardiovascular Exam Present: RRR, S1, S2 - Routine Abdominal Exam Present: soft, normoactive bowel sounds, non distended, non tender - Routine Extremities Exam Present: edema (1+ BLE, R>L) - Routine Skin Exam Present: intact, dry, warm - Routine Neurological Exam Present: alert, oriented X3, normal speech - Routine Psychiatric Exam Present: normal affect, normal thought process, cooperative Hospital Course This is a general summary of the patient's hospital course. For more details refer to the complete medical record. Hospital course: 04/13/17: ADMISSION Pt admitted for Severe sepsis, Hypoxic hypercapnic respiratory failure, possible pneumonia, COPD exacerbation, elevated LFTs (suspected hypoxic injury) . WBC 24, lactate 2.4. Cultures were drawn and he was started on Rocephin/ Azithro and IVF. A Portillo was inserted for accurate I/O measurement. He was placed on BiPAP and oxygen when not on BiPAP. IV Solu-Medrol and nebulized treatments were provided for COPD exacerbation. Dr. Tony was consulted for COPD. He was hyperglycemic on admission and an A1c was ordered. BP elevated on arrival and IV lopressor was given since he was encephalopathic and unable to take PO antiHTN meds initially. SQ heparin started for VTE ppx. 04/14/17 Lactate peaked at 5.3 before trending down. 1/2 BC positive with Gm + cocci in clusters and vanco was started. Respiratory status improving, able to come off BiPAP onto NC. IV steroids were tapered. Hgb A1c came back elevated at 7.7% and SSI was started. Inpt diabetic education was ordered. Troponin increased, peaked at .289. Dr. Acevedo was consulted and felt this was a type II MN d/t hypoxia/sepsis. Creatinine increased to 2.3 and IVF were continued. 04/15/17 Oxygen titrated down to 3 L, respiratory symptoms improved. Azithro course completed after 3 days. Repeat BC were drawn. Leukocytosis persists, though may be result of steroids. Renal function and LFTs improving. Portillo catheter was removed without problems. Pt with persistent hyperglycemia, corrective insulin doses adjusted and Lantus initiated. 04/16/17 1/2 BC was positive for coag-negative staph; vanco continued. IV steroids converted to prednisone today; continue to taper. Dr. Acevedo recommended outpatient stress test; echocardiogram obtained-report pending. Blood sugar control improving with basal insulin initiated yesterday. Pt did well functionally with PT/OT, though at times was impulsive with poor safety awareness. 04/17/17: DISCHARGE Repeat BC were negative after 2 days; vanco was dc'd. Breathing well on 2-3L of oxygen. Ambulatory oximetry was done; he needs 3L with activity, 2L at rest. Discussed dietary changes and pt's son has already cleared out sugar-laiden food /beverages from his home and has arranged a meeting with some diabetic friends for support. He will need ongoing diabetic education. Will start Metformin in outpt setting; he is opposed to insulin injections at this time. Continue with Keflex for 2 more days to complete 7-day course of abx. Continue Prednisone taper. Rx also provided for nebulizer and DuoNebs. F/U with Dr. Acevedo in 2-4 wks for outpt stress test. F/U with Dr. Hitchcock in 1 week. Pt discharged home in stable condition, and family/pt denied any further questions. Time spent with patient: discharge greater than 30 minutes Resuscitation Status: Do Not Resuscitate Discharge Plan - Discharge Disposition Discharge Date: 04/17/17 Disposition: 01 Discharged Home, Self-Care *Condition: Stable Reason For Visit (Visit label in EMR): severe sepsis - Discharge Medications *Discharge Medications: New CephALEXin [Keflex 500 mg] 500 mg PO QID #8 cap PredniSONE [Deltasone 10 mg] 10 mg PO TAPERQD #12 tab Albuterol/Ipratropium [Duoneb] 3 ml AEROSOL Q4H PRN #1 box PRN Reason: Wheezing Metformin [Glucophage] 500 mg PO BIDWM #60 tab Continue Levothyroxine Sodium 150 mcg PO DAILY #0 Fluticasone Nasal [place] [Flonase] 2 spray EA NOSTRIL BID #0 Pravastatin [Pravachol] 40 mg PO HS Fluticasone/Salmeterol 250/50 [Advair 250-50 Diskus] 1 puff INH BID Ascorbate Calcium [Vitamin C] 500 mg PO DAILY Metoprolol Succinate [Toprol Xl] 50 mg PO DAILY Lisinopril/Hctz 20/25 [Prinzide 20/25] 0.5 tab PO DAILY Gemfibrozil [Lopid] 600 mg PO DAILY Acetaminophen [Acetaminophen Extra Strength] 500 mg PO Q4H PRN PRN Reason: Pain LORazepam [Lorazepam] 0.5 - 1 mg PO Q8H PRN #0 PRN Reason: Anxiety Aspirin [Aspirin EC] 81 mg PO DAILY - Discharge Packet/Instructions *Diet: Consistent carbohydrate *Activity: Change positions slowly and be mindful of the oxygen tubing, which creates a fall risk. *Pain Management/Treatment: Tylenol if needed. *Wound Care: N/A Additional Instructions: 1. Wear oxygen around the clock, 2L while at rest and sleeping, and 3L with activity. 2. DuoNeb may need to be used routinely for several days as you continue to recover. Use one treatment in the morning, one mid-day, and the other before bed. Talk to Dr. Hitchcock about tapering your dose down. 3. Check your blood sugar first thing in the morning, 2 hours after lunch, and 2 hours after your last meal of the day. Keep a log of your blood sugars and discuss diabetic management with Dr. Hitchcock. Remember to eat a diabetic-friendly diet, and try to eat more regularly throughout the day. 4. Call Dr. Acevedo's office to schedule an appointment for an outpatient stress test. *Expected Signs/Symptoms: You will likely be fatigued and tired from your illness and hospital course. You might feel short of breath more quickly compared to your baseline, but this should gradually improve. *Notify Physician if: Chest pain, difficultly breathing, confusion, passing out or feeling dizzy, low blood sugars, or any new concerns. *During Business Hours Contact: Dr. Hitchcock' office at [email or web address]. *After Business Hours Contact: The on-call provider for Dr. Hitchcock. *Pending Lab/Results: No Pending Lab - Referrals/Follow Up *Referrals/Follow Up: Michelet Acevedo MD [Physician] - 2 Weeks (FOLLOW UP APPOINTMENT WITH DR. ACEVEDO ON 05/01/2017 AT 1:50 PM, OFICE NUMBER [phone]) Harish Tony MD [Physician] - 2 Weeks (APPOINTMENT WITH DR. TONY ON 2017 AT 10:20 AM CHECK IN AT 10:00 AM) Juan Francisco Hitchcock MD [Family Provider] - 1 Week (APPOINTMENT WITH DR. HITCHCOCK ON 04/24/2017 AT 2:45 PM OFFICE NUMBER [phone]) - Patient Handouts Patient Handouts: How to Check Your Blood Sugar (GEN), Type 2 Diabetes in Adults (IP), COPD (Chronic Obstructive Pulmonary Disease) (IP), Meal Planning with Diabetes Exchanges (DC), Sepsis (GEN) - Dismissal Complete Discharge Instructions are:: Complete Physician Narrative - Narrative Physician: Bisi Vera MD Attestation Narrative: Date: 04/17/17 Time: 1540 I have independently evaluated and examined this patient. I reviewed the chart, the patient's history, and the LINE PERSON/PA's documented findings as above. We discussed and formulated the assessment and plan as above with additions as below: Mr. Ballard reports he "walked and walked" with respiratory therapy today while having his oxygen levels checked. Oximetry demonstrated need for 3 L supplemental oxygen with activities and 2 L at rest. He denies dyspnea or fever and feels significantly improved over the past couple of days. He acknowledges that dietary changes can be made to improve blood sugar control but suggested steroid use is causing current hyperglycemia. He was reminded of his A1c of 7.7. NAD, alert Respirations nonlabored, good airflow, breath sounds clear Trace edema bilateral lower extremities Stable for discharge with supplemental oxygen as above. Paperwork completed for home oxygen and nebulizer. Outpatient follow-up reviewed with patient, asked to monitor blood sugars twice daily.
--- NOTE | 2017-04-17 15:39 | Cardiology Progress Note ---
<Corie Anderson - Last Filed: 04/17/17 15:36> Subjective Principal diagnosis: elevated troponin Interval history: Amando is seen in follow up for NSTEMI, type II likely secondary to hypoxia and sepsis. He is in his recliner eating breakfast in his room and states he is feeling fine, hopes to get to go home soon. He denies chest pain or pressure, states breathing is improved, denies dizziness or nausea. Exam Vital signs: Temperature 98.6 F 04/17/17 07:31 Pulse Rate 89 04/17/17 12:01 Respiratory Rate 24 04/17/17 11:00 Blood Pressure 140/77 H 04/17/17 11:53 Pulse Oximetry 83 L 04/17/17 12:01 - Constitutional no acute distress, well nourished, cooperative - Routine HEENT Exam Head: Present: normocephalic ENT: Present: mucous membranes moist - Routine Neck Exam Absent: JVD, carotid bruit - Routine Chest/Breast/Axilla Exam Chest wall: Absent: tenderness - Routine Respiratory Exam Present: CTA bilaterally. Absent: rales, wheezes - Routine Cardiovascular Exam Present: RRR, no murmur - Routine Abdominal Exam Present: soft, normoactive bowel sounds - Routine Extremities Exam Present: no edema, pulses intact - Routine Skin Exam Present: intact, dry, warm - Routine Neurological Exam Present: alert, oriented X3 - Routine Psychiatric Exam Present: normal affect, normal thought process - Additional findings Additional findings: Acetaminophen (Tylenol) 325 - 650 mg PO Q5H PRN PRN Reason: Discomfort Last Admin: 04/17/17 08:09 Dose: 650 mg Albuterol/Ipratropium (Duoneb) 3 ml AEROSOL Q4H [facility] Last Admin: 04/17/17 11:00 Dose: 3 ml Amlodipine Besylate (Norvasc) 5 mg PO O [facility] Last Admin: 04/17/17 09:58 Dose: 5 mg Ascorbic Acid (Vitamin C) 500 mg PO DAILY [facility] Last Admin: 04/17/17 08:09 Dose: 500 mg Aspirin (Ecotrin) 81 mg PO DAILY [facility] Last Admin: 04/17/17 08:09 Dose: 81 mg Budesonide (Pulmicort Inhalation) 0.5 mg AEROSOL RTBID [facility] Last Admin: 04/17/17 07:00 Dose: 0.5 mg Dextrose (D50%W) 10 ml IVP PRN PRN PRN Reason: Hypoglycemia Famotidine (Pepcid) 20 mg PO HS [facility] Last Admin: 04/16/17 20:14 Dose: 20 mg Fluticasone Propionate (Flonase) 2 spray EA NOSTRIL BID [facility] Last Admin: 04/17/17 08:11 Dose: 2 spray Gemfibrozil (Lopid) 600 mg PO 0730 [facility] Last Admin: 04/17/17 08:15 Dose: 600 mg Heparin Sodium (Porcine) (Heparin Sq) 5,000 units SQ Q8HR [facility] Last Admin: 04/17/17 08:14 Dose: 5,000 units Ceftriaxone Sodium 1 g/ Sodium (Chloride) 50 mls @ 200 mls/hr IV Q24H [facility] Last Infusion: 04/17/17 08:26 Dose: Infused Insulin Aspart (Novolog) 2 - 10 unit SQ SS PRN; Protocol PRN Reason: Hyperglycemia Last Admin: 04/15/17 13:33 Dose: 2 unit Insulin Glargine (Lantus) 10 unit SQ [facility] Last Admin: 04/16/17 20:15 Dose: 10 unit Levothyroxine Sodium (Synthroid) 150 mcg PO ACB [facility] Last Admin: 04/17/17 07:46 Dose: 150 mcg Lisinopril (Prinivil) 10 mg PO DAILY [facility] Last Admin: 04/17/17 13:55 Dose: 10 mg Lorazepam (Ativan Inj) 0.5 mg IVP O PRN Last Admin: 04/13/17 16:52 Dose: 0.5 mg Lorazepam (Ativan Inj) 0.5 mg IVP O PRN Last Admin: 04/13/17 18:15 Dose: 0.5 mg Lorazepam (Ativan Inj) 0.5 mg IVP Q6H PRN Last Admin: 04/16/17 02:28 Dose: 0.5 mg Lorazepam (Ativan) 0.5 mg PO Q8H PRN PRN Reason: Anxiety Menthol (Ricola Sf) 1 lozenge MM PRN PRN PRN Reason: Cough Last Admin: 04/14/17 23:25 Dose: 1 lozenge Metoprolol Succinate (Toprol Xl) 50 mg PO DAILY [facility] Last Admin: 04/17/17 08:14 Dose: 50 mg Ondansetron HCl (Zofran) 4 mg IVP Q6H PRN PRN Reason: Nausea Pravastatin Sodium (Pravachol) 40 mg PO HS [facility] Last Admin: 04/16/17 20:15 Dose: 40 mg Prednisone (Deltasone 10 Mg) 30 mg PO WB [facility] Last Admin: 04/17/17 08:08 Dose: 30 mg Fluticasone/Salmeterol (Advair Diskus) 1 puff IH BID [facility] Last Admin: 04/17/17 10:04 Dose: 1 puff Sodium Chloride (Iv Flush) 10 - 80 ml IVF PRN PRN PRN Reason: Flushing Last Admin: 04/16/17 20:15 Dose: 10 ml Sodium Chloride (Normal Saline) 500 ml IV PRN PRN - Urinary Catheter Management Urethral Cath placed during this visit: yes, but has since been removed by the nurse Urethral indwelling: Yes Insertion date: 04/13/17 Insertion time: 20:00 Removal date: 04/15/17 Removal time: 16:30 Results 04/17/17 04:27 04/17/17 04:28 CBC 04/17/17 Range/Units 04:27 WBC 12.5 H (4.5-11.0) T/MM3 RBC 4.90 (4.50-5.90) M/MM3 Hgb 14.3 (13.5-17.5) GM/DL Hct 43.5 (41-53) % Plt Count 182 (130-400) T/MM3 Neut # (Auto) 9.5 H (1.8-7.7) T/MM3 Lymph # (Auto) 1.9 (1-4.8) T/MM3 [place] # (Auto) 1.1 H (0-0.8) T/MM3 Eos # (Auto) 0.0 (0-0.5) T/MM3 Baso # (Auto) 0.0 (0-0.2) T/MM3 Comprehensive Metabolic Panel 04/17/17 Range/Units 04:28 Sodium 141 (134-144) MEQ/L Potassium 4.3 (3.6-5) MEQ/L Chloride 104 (98-107) MEQ/L Carbon Dioxide 27 (22-30) MEQ/L BUN 36.0 H (9-20) MG/DL Creatinine 1.0 D (0.8-1.5) MG/DL Glucose 126 H (75-110) MG/DL Calcium 9.4 (8.4-10.2) MG/DL Albumin 4.2 (3.5-5.0) G/DL Intake and Output 04/17/17 04/17/17 04/17/17 06:59 14:59 22:59 Intake Total 290 / 290 Balance 290 / 290 Intake: IV 50 / 50 Ceftriaxone 1 g In Ns 50 ml @ 50 / 50 200 mls/hr IV Q24H [facility] Rx#: [id number] Oral 240 / 240 Other: Urine Appearance Clear Urine Color Yellow Stool Color Brown Brown Stool Consistency Soft Size of Bowel Movement Small Moderate # Voids 1 1 # Bowel Movements 1 Assessment and Plan - Assessment and Plan (1) Non-ST elevation myocardial infarction (NSTEMI), type 2 Status: Acute (2) Pneumonia Status: Acute (3) Severe sepsis Status: Acute (4) Acute respiratory failure with hypoxia and hypercapnia Status: Acute (5) COPD exacerbation Status: Acute (6) Essential (primary) hypertension Status: Acute (7) Mixed hyperlipidemia Status: Acute - Assessment and Plan 04/15/17 Type II MT : likely due to hypoxia related with severe sepsis - troponins remain flat - 2D Echo - Outpatient stress test after current illness Thank you for allowing us to participate in this patient's care. 04/16/17 Resume Amlodipine 5mg daily as BP elevated EF 55% on echo with moderate pulmonary hypertension with estimated pulmonary artery systolic pressure of 55. 04/17/17 Increase Amlodipine to 10mg daily, give additional 5mg today please. Hospital Course Summary Disclaimer: The visit summary below is not to be considered part of the above Progress Note. Hospital Course: 04/13/17: ADMISSION Pt admitted for Severe sepsis, Hypoxic hypercapnic respiratory failure, possible pneumonia, COPD exacerbation, elevated LFTs (suspected hypoxic injury) . WBC 24, lactate 2.4. Cultures were drawn and he was started on Rocephin/ Azithro and IVF. A Uriarte was inserted for accurate I/O measurement. He was placed on BiPAP and oxygen when not on BiPAP. IV Solu-Medrol and nebulized treatments were provided for COPD exacerbation. Dr. Tony was consulted for COPD. He was hyperglycemic on admission and an A1c was ordered. BP elevated on arrival and IV lopressor was given since he was encephalopathic and unable to take PO antiHTN meds initially. SQ heparin started for VTE ppx. 04/14/17 Lactate peaked at 5.3 before trending down. 1/2 BC positive with Gm + cocci in clusters and vanco was started. Respiratory status improving, able to come off BiPAP onto NC. IV steroids were tapered. Hgb A1c came back elevated at 7.7% and SSI was started. Inpt diabetic education was ordered. Troponin increased, peaked at .289. Dr. Faria was consulted and felt this was a type II MT d/t hypoxia/sepsis. Creatinine increased to 2.3 and IVF were continued. 04/15/17 Oxygen titrated down to 3 L, respiratory symptoms improved. Azithro course completed after 3 days. Repeat BC were drawn. Leukocytosis persists, though may be result of steroids. Renal function and LFTs improving. Uriarte catheter was removed without problems. Pt with persistent hyperglycemia, corrective insulin doses adjusted and Lantus initiated. 04/16/17 1/2 BC was positive for coag-negative staph; vanco continued. IV steroids converted to prednisone today; continue to taper. Dr. Faria recommended outpatient stress test; echocardiogram obtained-report pending. Blood sugar control improving with basal insulin initiated yesterday. Pt did well functionally with PT/OT, though at times was impulsive with poor safety awareness. 04/17/17: DISCHARGE Repeat BC were negative after 2 days; vanco was dc'd. Breathing well on 2-3L of oxygen. Ambulatory oximetry was done; he needs 3L with activity, 2L at rest. Discussed dietary changes and pt's son has already cleared out sugar-laiden food /beverages from his home and has arranged a meeting with some diabetic friends for support. He will need ongoing diabetic education. Will start Metformin in outpt setting; he is opposed to insulin injections at this time. Continue with Keflex for 2 more days to complete 7-day course of abx. Continue Prednisone taper. Rx also provided for nebulizer and DuoNebs. F/U with Dr. Faria in 2-4 wks for outpt stress test. F/U with Dr. Doran in 1 week. Pt discharged home in stable condition, and family/pt denied any further questions. <Michelet Faria - Last Filed: 04/23/17 07:53> Exam Vital signs: Temperature 98.6 F 04/17/17 07:31 Pulse Rate 89 04/17/17 12:01 Respiratory Rate 24 04/17/17 11:00 Blood Pressure 140/77 H 04/17/17 11:53 Pulse Oximetry 83 L 04/17/17 12:01 - Urinary Catheter Management Urethral Cath placed during this visit: no Results 04/17/17 04:27 04/17/17 04:28 Assessment and Plan - Assessment and Plan (1) Pneumonia Status: Acute (2) Severe sepsis Status: Acute (3) Acute respiratory failure with hypoxia and hypercapnia Status: Acute (4) COPD exacerbation Status: Acute (5) Non-ST elevation myocardial infarction (NSTEMI), type 2 Status: Acute (6) Essential (primary) hypertension Status: Acute (7) Mixed hyperlipidemia Status: Acute - Attestation Attestation Narrative: 04/23/17 07:53 Recommendation After examining the patient I agree with the above assessment. I am involved in the formulation of the patient's plan of care. Hospital Course Summary Disclaimer: The visit summary below is not to be considered part of the above Progress Note.
--- NOTE | 2017-04-17 15:58 | Pulmonology Progress Note ---
Subjective Principal diagnosis: elevated troponin Interval history: Pt states he is doing ok and ready to go home. States he has slight cough but no sputum, + SOB but has been up ambulating with PT/OT. Exam Vital signs: Temperature 98.6 F 04/17/17 07:31 Pulse Rate 89 04/17/17 12:01 Respiratory Rate 24 04/17/17 11:00 Blood Pressure 140/77 H 04/17/17 11:53 Pulse Oximetry 83 L 04/17/17 12:01 - Constitutional no acute distress, well developed, obese - Routine HEENT Exam Head: Present: normocephalic, atraumatic Eye: Present: EOMI, PERRL ENT: Present: mucous membranes moist - Routine Neck Exam Present: supple, full ROM, trachea midline - Routine Respiratory Exam Present: decreased breath sounds, crackles Comments: crackles bases - Routine Cardiovascular Exam Present: RRR, S1, S2, no murmur - Routine Abdominal Exam Present: soft, normoactive bowel sounds - Routine Extremities Exam Present: no edema, non tender, full ROM - Routine Back/Spine/Pelvis Exam Back/Spine: Present: full ROM - Routine Skin Exam Present: intact, dry - Routine Neurological Exam Present: alert, oriented X3, CN II-XII intact - Routine Psychiatric Exam Present: normal affect, normal thought process, good judgment - Urinary Catheter Management Urethral Cath placed during this visit: yes, but has since been removed by the nurse Urethral indwelling: Yes Insertion date: 04/13/17 Insertion time: 20:00 Removal date: 04/15/17 Removal time: 16:30 Assessment and Plan - Assessment and Plan Acute Hypoxic Hypercapnic Respiratory Failure COPD exacerbation Sepsis Plan: Pt currently on O2 at 2L, ExOx shows he needs 2L rest and 3L ambulation. Last CXR 2/5 still with LLL infiltrate but improving. Home today with O2, cont home advair and ventolin, encouraged use of ambulation and IS. Will need to f/u with pulm in 2-3 weeks and wean prednisone every 3 days till completed. Home on Keflex to complete 7 days of abx. - Time Spent With Patient Total time spent is greater than 50% in coordination of care (as documented) at patient's floor/unit and/or counseling patient: less than 15 minutes
[2017-04-18] MEDS ORDERED: AMLODIPINE 10 MG TABLET PO SCH (09:00)
== END 2017-04-17 16:15 | disposition home or self-care (01) | DRG 871 ==
LOC: ED 15:31 → SUATTDRO 18:29 → CCU 18:29 → MED 04-15 17:50
PROVIDERS: ADMIT Internal Medicine Cardiovascular Disease; ATTEND Internal Medicine